=== PATIENT | male | born 1950 | race Two or more races ===

== ENCOUNTER 2016-06-05 12:37 | Inpatient (IN) | payer OTHER ==
[2016-06-05 13:56] VITALS: BMI 26.9
--- NOTE | 2016-06-05 16:11 | HP ---
COWS - Scale Resting Pulse: 2= [place] 101-120 Sweatin=Flushed/Facial Moisture Restless Observation: 3= Extraneous Movement Pupil Size: 2= Moderately Dilated Bone or Joint Aches: 2= Severe Diffuse Aches Runny Nose/ Eye Tearin= Runny Nose/Eyes GI Upset > 30mins: 3= Vomiting/Diarrhea Tremor Observation: 2= Slight Tremor Visible Yawning Observation: 2= >3x During Session Anxiety or Irritability: 2=Irritable/Anxious Goose Flesh Skin: 0=Smooth Skin COWS Score: 22 Admission ROS BHS - HPI Chief Complaint: i need help to stop using heroin Allergies/Adverse Reactions: Allergies Allergy/AdvReac Type Severity Reaction Status Date / Time No Known Drug Allergies Allergy Verified 06/05/16 16:00 History of Present Illness: this 66 years old male with heroin dependence,withdrawal symptom,last detox [facility] nicotine dependence hepatitis c weight loss no significant period of sobriety Exam Limitations: No Limitations - Ebola screening Have you been sick,other than usual withdrawal symptoms: No - Review of Systems Constitutional: Chills, Diaphoresis, Loss of Appetite, Malaise, Night Sweats, Changes in sleep, Weakness, Unintentional Wgt. Loss EENT: reports: Tearing, Nose Congestion Respiratory: reports: No Symptoms reported Cardiac: reports: Palpitations GI: reports: Diarrhea, Nausea, Vomiting, Abdominal cramping : reports: No Symptoms Reported Musculoskeletal: reports: Back Pain, Joint Pain, Muscle Pain, Joint Stiffness Integumentary: reports: Dryness Neuro: reports: Headache, Tremors Endocrine: reports: No Symptoms Reported Hematology: reports: No Symptoms Reported Psychiatric: reports: No Sypmtoms Reported, Judgement Intact, Mood/Affect Appropiate, Orientated x3 Patient History - Patient Medical History Hx Anemia: No Hx Asthma: No Hx Chronic Obstructive Pulmonary Disease (COPD): No Hx Cancer: No Hx Cardiac Disorders: No Hx Congestive Heart Failure: No Hx Hypertension: No Hx Hypercholesterolemia: No Hx Pacemaker: No HX Cerebrovascular Accident: No Hx Seizures: No Hx Dementia: No Hx Diabetes: No Hx Gastrointestinal Disorders: No Hx Liver Disease: No Hx Genitourinary Disorders: No Hx Sexually Transmitted Disorders: No Hx Renal Disease (ESRD): No Hx Human Immunodeficiency Virus (HIV): No Hx Hepatitis C: Yes (not treated yet,follow by pmd) Hx Depression: No Hx Suicide Attempt: No Hx Bipolar Disorder: No Hx Schizophrenia: No Other Medical History: no suicidal,no homicidal - Patient Surgical History Past Surgical History: No Hx Neurologic Surgery: No Hx Cataract Extraction: No Hx Cardiac Surgery: No Hx Lung Surgery: No Hx Breast Surgery: No Hx Breast Biopsy: No Hx Abdominal Surgery: No Hx Appendectomy: No Hx Cholecystectomy: No Hx Genitourinary Surgery: No Hx Section: No Hx Orthopedic Surgery: No Anesthesia Reaction: No - PPD History Previous Implant?: Yes Documented Results: Negative w/o proof Implanted On Prior [facility] Admission?: No Date: 01/16/15 PPD to be Administered?: Yes - Smoking Cessation Smoking history: Current every day smoker Have you smoked in the past 12 months: Yes Aproximately how many cigarettes per day: 10 Hx Chewing Tobacco Use: No Initiated information on smoking cessation: Yes 'Breaking Loose' booklet given: 06/05/16 - Substance & Tx. History Hx Alcohol Use: No Hx Substance Use: Yes Substance Use Type: Heroin Hx Substance Use Treatment: Yes ([facility] 05/28) - Substances Abused Heroin Route: Inhalation Frequency: Daily Amount used: 8 bags Age of first use: 20 Date of Last Use: 06/04/16 Family Disease History - Family Disease History Family Disease History: Heart Disease: Mother ( FROM CAD) Admission Physical Exam S - Vital Signs Vital Signs: Vital Signs - 24 hr 06/05/16 13:54 Temperature 98.2 F Pulse Rate 109 H Respiratory 18 Rate Blood Pressure 165/79 - Physical General Appearance: Yes: Moderate Distress, Tremorous, Irritable, Sweating, Anxious HEENTM: Yes: Normal ENT Inspection, Pharynx Normal, Nasal Congestion, Other ( hearing deminish right) Respiratory: Yes: Lungs Clear, Normal Breath Sounds, No Respiratory Distress Neck: Yes: Within Normal Limits, Supple, Trachea in good position Breast: Yes: Breast Exam Deferred Cardiology: Yes: Within Normal Limits, Regular Rhythm, Regular Rate, S1, S2 Abdominal: Yes: Within Normal Limits, Normal Bowel Sounds, Non Tender, Flat, Soft Genitourinary: Yes: Within Normal Limits Back: Yes: Within Normal Limits Musculoskeletal: Yes: full range of Motion, Back pain, Joint Stiffness, Muscle Pain Extremities: Yes: Within Normal Limits, Normal Range of Motion, Tremors Neurological: Yes: auditing manager II-XII NML intact, Fully Oriented, Alert, Motor Strength 5/5 Integumentary: Yes: Dry Lymphatic: Yes: Within Normal Limits - Diagnostic (1) Opioid dependence with withdrawal Current Visit: No Status: Acute (2) GERD (gastroesophageal reflux disease) Current Visit: No Status: Chronic Qualifiers: Esophagitis presence: without esophagitis Qualified Code(s): K21.9 - Gastro-esophageal reflux disease without esophagitis (3) Hepatitis C Current Visit: No Status: Chronic Qualifiers: Viral hepatitis chronicity: unspecified Hepatic coma status: without hepatic coma Qualified Code(s): B19.20 - Unspecified viral hepatitis C without hepatic coma (4) Nicotine dependence Current Visit: No Status: Chronic Qualifiers: Nicotine product type: cigarettes Substance use status: uncomplicated Qualified Code(s): F17.210 - Nicotine dependence, cigarettes, uncomplicated (5) Weight loss Current Visit: Yes Status: Acute Cleared for Admission BHS - Detox or Rehab S Level of Care: Medically Managed Detox Regimen/Protocol: Methadone BHS Breath Alcohol Content Breath Alcohol Content: 0 Urine Drug Screen - Results Drug Screen Negative: No Urine Drug Screen Results: OPI-Opiates
[2016-06-05] MEDS ORDERED: hydrOXYzine PAMOATE 25 MG CAPSULE (FP) PO PRN (16:17)
[2016-06-05] MEDS ORDERED: MENTHOL/PHENOL 1 EACH UD MM PRN (16:17)
[2016-06-05] MEDS ORDERED: MAGNESIUM CITRATE 300 ML BOTTLE PO PRN (16:17)
[2016-06-05] MEDS ORDERED: MAG HYDROX/AL HYDROX/SIMETH 30 ML UNIT-DOSE CUP PO PRN (16:17)
[2016-06-05] MEDS ORDERED: guaiFENesin/D-METHORPHAN HB 10 ML UNIT-DOSE CUPS PO PRN (16:17)
[2016-06-05] MEDS ORDERED: ACETAMINOPHEN 325 MG TABLET (FP) PO PRN (16:17)
[2016-06-05] MEDS ORDERED: IBUPROFEN 400 MG TABLET (FP) PO PRN (16:17)
[2016-06-05] MEDS ORDERED: MAGNESIUM HYDROX 2400MG/30ML ORAL SUSPENSION 30 ML CUP PO PRN (16:17)
[2016-06-05] MEDS ORDERED: P-EPHED 60MG/TRIPROLIDI 2.5MG TABLET PO PRN (16:17)
[2016-06-05] MEDS ORDERED: METHADONE HCL 10 MG TABLET (FOR DETOX USE ONLY) PO ONE ×2 (17:15→23:00)
[2016-06-05] MEDS: diazePAM 5 MG TABLET PO PRN (18:08)
[2016-06-05] MEDS: LOPERAMIDE HCL 2 MG CAPSULE PO PRN (19:10)
[2016-06-05 22:44] LABS: URINE APPEARANCE CLEAR; URINE BILIRUBIN NEGATIVE (NEGATIVE); URINE BLOOD NEGATIVE (NEGATIVE); URINE COLOR LTYELLOW; URINE GLUCOSE (UA) NEGATIVE (NEGATIVE); URINE KETONE NEGATIVE (NEGATIVE); URINE LEUK ESTERASE NEGATIVE (NEGATIVE); URINE NITRITE NEGATIVE (NEGATIVE); URINE PROTEIN NEGATIVE (NEGATIVE); URINE UROBILINOGEN NEGATIVE E.U./dl (0.2-1.0)
[2016-06-05] MEDS: THIAMINE HCL 100 MG TABLET (FP) PO SCH (22:58)
[2016-06-05] MEDS: diphenhydrAMINE HCL 50 MG CAPSULE PO PRN (22:58)
[2016-06-05] MEDS: cloNIDine HCL 0.1 MG TABLET PO SCH (22:58)
[2016-06-06] MEDS ORDERED: METHADONE HCL 10 MG TABLET (FOR DETOX USE ONLY) PO ONE (10:00)
[2016-06-06] MEDS: cloNIDine HCL 0.1 MG TABLET PO SCH ×2 (10:24→22:47)
[2016-06-06] MEDS: PRENATAL VITAMINS W/ FOLIC ACID TABLET (FP) PO SCH (10:24)
[2016-06-06] MEDS: diazePAM 5 MG TABLET PO PRN ×2 (10:24→17:35)
[2016-06-06] MEDS: NICOTINE 21 MG/24 HOURS TOPICAL PATCH TD SCH (10:24)
[2016-06-06] MEDS: LOPERAMIDE HCL 2 MG CAPSULE PO PRN (10:25)
[2016-06-06 10:30] LABS: MCH 27.7 pg (25.7-33.7); MCHC 32.5 g/dl (32.0-35.9); MEAN CELL VOLUME 85.1 fl (80-96); MEAN PLT VOLUME 8.2 fl (7.5-11.1); PLATELET COUNT 357 K/MM3 (134-434); WHITE BLOOD COUNT 13.4 K/mm3 (4.0-10.0)
[2016-06-06 10:57] LABS: ALBUMIN 4.1 g/dl (3.4-5.0); ALK PHOS 74 U/L (45-117); ANION GAP 11 (8-16); BILIRUBIN,TOTAL 0.5 mg/dL (0.2-1.0); CALCIUM 9.1 mg/dL (8.5-10.1); CO2 26 mmol/L (21-32); CREATININE 1.2 mg/dL (0.7-1.3); GLUCOSE,RANDOM 191 mg/dL (74-106); SGOT/AST 45 U/L (15-37); SGPT/ALT 55 U/L (12-78); TOT PROT 9.4 g/dl (6.4-8.2)
--- NOTE | 2016-06-06 11:13 | PN ---
BHS COWS - Scale Resting Pulse: 1= [place] 81-100 Sweatin=Flushed/Facial Moisture Restless Observation: 1= Difficult to Sit Still Pupil Size: 0= Normal to Room Light Bone or Joint Aches: 2= Severe Diffuse Aches Runny Nose/ Eye Tearin= Runny Nose/Eyes GI Upset > 30mins: 2= Nausea/Diarrhea Tremor Observation of Outstretched Hands: 2= Slight Tremor Visible Yawning Observation: 1= 1-2x During Session Anxiety or Irritability: 2=Irritable/Anxious Goose Flesh Skin: 0=Smooth Skin COWS Score: 15 BHS Progress Note (SOAP) Subjective: Anxiety,tremors,sweating,interrupted sleep,restless Objective: 06/06/16 11:12 Last Vital Signs Temp Pulse Resp BP Pulse Ox 96.8 F L 97 H 18 140/84 06/06/16 09:55 06/06/16 09:55 06/06/16 09:55 06/06/16 09:55 Laboratory Tests 06/05/16 06/06/16 06/06/16 21:13 06:20 06:20 WBC 13.4 H D RBC 5.73 H D Hgb 15.9 D Hct 48.8 D MCV 85.1 MCHC 32.5 RDW 16.0 H Plt Count 357 D MPV 8.2 D Sodium 139 Potassium 4.4 Chloride 102 Carbon Dioxide 26 Anion Gap 11 BUN 16 Creatinine 1.2 D Creat Clearance w eGFR > 60 Random Glucose 191 H D Calcium 9.1 Total Bilirubin 0.5 D AST 45 H D ALT 55 D Alkaline Phosphatase 74 D Total Protein 9.4 H D Albumin 4.1 D Urine Color Ltyellow Urine Appearance Clear Urine pH 8.0 D Ur Specific [place] 1.014 Urine Protein Negative Urine Glucose (UA) Negative Urine Ketones Negative Urine Blood Negative Urine Nitrite Negative Urine Bilirubin Negative Urine Urobilinogen Negative Ur Leukocyte Esterase Negative labs noted Assessment: 06/06/16 11:12 Withdrawal sx. Plan: Continue detox
[2016-06-06 13:59] LABS: HIV 1 & 2 AB NEGATIVE; HIV 1 AGp24 NEGATIVE
--- NOTE | 2016-06-06 18:31 | EKG ---
Test Reason : Blood Pressure : / mmHG Vent. Rate : 096 BPM Atrial Rate : 096 BPM P-R Int : 166 ms QRS Dur : 076 ms QT Int : 352 ms P-R-T Axes : 061 -10 058 degrees QTc Int : 444 ms NORMAL SINUS RHYTHM POSSIBLE LEFT ATRIAL ENLARGEMENT BORDERLINE ECG NO PREVIOUS ECGS AVAILABLE Confirmed by BHARTI CONTRERAS MD ([id number]) on 06/06/2016 6:30:26 PM Referred By: Rodney Lucas Confirmed By:BHARTI CONTRERAS MD
[2016-06-06] MEDS: THIAMINE HCL 100 MG TABLET (FP) PO SCH (22:47)
[2016-06-06] MEDS: diphenhydrAMINE HCL 50 MG CAPSULE PO PRN (22:48)
[2016-06-07] MEDS ORDERED: METHADONE HCL 5 MG TABLET (FOR DETOX USE ONLY) PO ONE (10:00)
[2016-06-07] MEDS: PRENATAL VITAMINS W/ FOLIC ACID TABLET (FP) PO SCH (10:14)
[2016-06-07] MEDS: CYCLOBENZAPRINE HCL 10 MG TABLET (FP) PO PRN ×2 (10:14→22:22)
[2016-06-07] MEDS: NICOTINE 21 MG/24 HOURS TOPICAL PATCH TD SCH (10:15)
[2016-06-07] MEDS: cloNIDine HCL 0.1 MG TABLET PO SCH ×2 (10:15→22:22)
[2016-06-07] MEDS: diazePAM 5 MG TABLET PO PRN ×2 (10:15→22:22)
--- NOTE | 2016-06-07 12:50 | PN ---
BHS COWS - Scale Resting Pulse: 1= [place] 81-100 Sweatin=Flushed/Facial Moisture Restless Observation: 1= Difficult to Sit Still Pupil Size: 0= Normal to Room Light Bone or Joint Aches: 2= Severe Diffuse Aches Runny Nose/ Eye Tearin= Runny Nose/Eyes GI Upset > 30mins: 2= Nausea/Diarrhea Tremor Observation of Outstretched Hands: 2= Slight Tremor Visible Yawning Observation: 1= 1-2x During Session Anxiety or Irritability: 2=Irritable/Anxious Goose Flesh Skin: 0=Smooth Skin COWS Score: 15 BHS Progress Note (SOAP) Subjective: Anxiety,tremors,sweating,interrupted sleep,restless. Objective: 06/07/16 12:48 Last Vital Signs Temp Pulse Resp BP Pulse Ox 99.1 F 97 H 18 128/77 06/07/16 09:43 06/07/16 09:43 06/07/16 09:43 06/07/16 09:43 Laboratory Tests 06/05/16 06/06/16 06/06/16 21:13 06:20 06:20 WBC 13.4 H D RBC 5.73 H D Hgb 15.9 D Hct 48.8 D MCV 85.1 MCHC 32.5 RDW 16.0 H Plt Count 357 D MPV 8.2 D Sodium Potassium Chloride Carbon Dioxide Anion Gap BUN Creatinine Creat Clearance w eGFR Random Glucose Calcium Total Bilirubin AST ALT Alkaline Phosphatase Total Protein Albumin Urine Color Ltyellow Urine Appearance Clear Urine pH 8.0 D Ur Specific [place] 1.014 Urine Protein Negative Urine Glucose (UA) Negative Urine Ketones Negative Urine Blood Negative Urine Nitrite Negative Urine Bilirubin Negative Urine Urobilinogen Negative Ur Leukocyte Esterase Negative RPR Titer HIV 1&2 Antibody Screen Negative HIV P24 Antigen Negative 06/06/16 06/06/16 06:20 06:20 WBC RBC Hgb Hct MCV MCHC RDW Plt Count MPV Sodium 139 Potassium 4.4 Chloride 102 Carbon Dioxide 26 Anion Gap 11 BUN 16 Creatinine 1.2 D Creat Clearance w eGFR > 60 Random Glucose 191 H D Calcium 9.1 Total Bilirubin 0.5 D AST 45 H D ALT 55 D Alkaline Phosphatase 74 D Total Protein 9.4 H D Albumin 4.1 D Urine Color Urine Appearance Urine pH Ur Specific [place] Urine Protein Urine Glucose (UA) Urine Ketones Urine Blood Urine Nitrite Urine Bilirubin Urine Urobilinogen Ur Leukocyte Esterase RPR Titer Nonreactive HIV 1&2 Antibody Screen HIV P24 Antigen labs noted,WBC 13.4 noted Assessment: 06/07/16 12:50 Withdrawal sx. Plan: Continue detox
[2016-06-07] MEDS: THIAMINE HCL 100 MG TABLET (FP) PO SCH (22:21)
[2016-06-08] MEDS: diazePAM 5 MG TABLET PO PRN (05:26)
[2016-06-08] MEDS: CYCLOBENZAPRINE HCL 10 MG TABLET (FP) PO PRN (05:26)
[2016-06-08] MEDS ORDERED: METHADONE HCL 5 MG TABLET (FOR DETOX USE ONLY) PO ONE (10:00)
[2016-06-08] MEDS: NICOTINE 21 MG/24 HOURS TOPICAL PATCH TD SCH (10:31)
[2016-06-08] MEDS: PRENATAL VITAMINS W/ FOLIC ACID TABLET (FP) PO SCH (10:31)
[2016-06-08] MEDS: cloNIDine HCL 0.1 MG TABLET PO SCH ×2 (10:31→22:40)
--- NOTE | 2016-06-08 12:22 | PN ---
BHS Progress Note (SOAP) Subjective: Sweating,interrupted sleep,restless Objective: 06/08/16 12:21 Vital Signs - 8 hr 06/08/16 06/08/16 06:24 10:42 Temperature 96.6 F L 97.2 F L Pulse Rate 72 100 H Respiratory 18 20 Rate Blood Pressure 127/74 127/81 Laboratory Last Values WBC 13.4 K/mm3 (4.0-10.0) H D 06/06/16 06:20 RBC 5.73 M/mm3 (4.00-5.60) H D 06/06/16 06:20 Hgb 15.9 GM/dL (11.7-16.9) D 06/06/16 06:20 Hct 48.8 % (35.4-49) D 06/06/16 06:20 MCV 85.1 fl (80-96) 06/06/16 06:20 MCHC 32.5 g/dl (32.0-35.9) 06/06/16 06:20 RDW 16.0 % (11.9-15.9) H 06/06/16 06:20 Plt Count 357 K/MM3 (134-434) D 06/06/16 06:20 MPV 8.2 fl (7.5-11.1) D 06/06/16 06:20 Sodium 139 mmol/L (136-145) 06/06/16 06:20 Potassium 4.4 mmol/L (3.5-5.1) 06/06/16 06:20 Chloride 102 mmol/L (98-107) 06/06/16 06:20 Carbon Dioxide 26 mmol/L (21-32) 06/06/16 06:20 Anion Gap 11 (8-16) 06/06/16 06:20 BUN 16 mg/dL (7-18) 06/06/16 06:20 Creatinine 1.2 mg/dL (0.7-1.3) D 06/06/16 06:20 Creat Clearance w eGFR > 60 (>60) 06/06/16 06:20 Random Glucose 191 mg/dL (74-106) H D 06/06/16 06:20 Calcium 9.1 mg/dL (8.5-10.1) 06/06/16 06:20 Total Bilirubin 0.5 mg/dL (0.2-1.0) D 06/06/16 06:20 AST 45 U/L (15-37) H D 06/06/16 06:20 ALT 55 U/L (12-78) D 06/06/16 06:20 Alkaline Phosphatase 74 U/L (45-117) D 06/06/16 06:20 Total Protein 9.4 g/dl (6.4-8.2) H D 06/06/16 06:20 Albumin 4.1 g/dl (3.4-5.0) D 06/06/16 06:20 Urine Color Ltyellow 06/05/16 21:13 Urine Appearance Clear 06/05/16 21:13 Urine pH 8.0 (5.0-8.0) D 06/05/16 21:13 Ur Specific [place] 1.014 (1.001-1.035) 06/05/16 21:13 Urine Protein Negative (NEGATIVE) 06/05/16 21:13 Urine Glucose (UA) Negative (NEGATIVE) 06/05/16 21:13 Urine Ketones Negative (NEGATIVE) 06/05/16 21:13 Urine Blood Negative (NEGATIVE) 06/05/16 21:13 Urine Nitrite Negative (NEGATIVE) 06/05/16 21:13 Urine Bilirubin Negative (NEGATIVE) 06/05/16 21:13 Urine Urobilinogen Negative E.U./dl (0.2-1.0) 06/05/16 21:13 Ur Leukocyte Esterase Negative (NEGATIVE) 06/05/16 21:13 RPR Titer Nonreactive (NONREACTIVE) 06/06/16 06:20 HIV 1&2 Antibody Screen Negative 06/06/16 06:20 HIV P24 Antigen Negative 06/06/16 06:20 labs noted Assessment: 06/08/16 12:21 Withdrawal sx. Plan: Continue detox
[2016-06-08] MEDS: LOPERAMIDE HCL 2 MG CAPSULE PO PRN (20:29)
[2016-06-08] MEDS: THIAMINE HCL 100 MG TABLET (FP) PO SCH (22:40)
[2016-06-08] MEDS: diphenhydrAMINE HCL 50 MG CAPSULE PO PRN (22:41)
[2016-06-09] MEDS: CYCLOBENZAPRINE HCL 10 MG TABLET (FP) PO PRN ×2 (05:30→22:43)
[2016-06-09] MEDS ORDERED: METHADONE HCL 10 MG TABLET (FOR DETOX USE ONLY) PO ONE (10:00)
[2016-06-09] MEDS: NICOTINE 21 MG/24 HOURS TOPICAL PATCH TD SCH (10:34)
[2016-06-09] MEDS: cloNIDine HCL 0.1 MG TABLET PO SCH ×2 (10:34→22:43)
[2016-06-09] MEDS: PRENATAL VITAMINS W/ FOLIC ACID TABLET (FP) PO SCH (10:34)
--- NOTE | 2016-06-09 11:07 | PN ---
S Progress Note (SOAP) Subjective: ANXIETY,TREMORS,FATIGUE. Objective: 06/09/16 11:06 Vital Signs Temperature 96 F L 06/09/16 09:32 Pulse Rate 111 H 06/09/16 09:32 Respiratory Rate 20 06/09/16 09:32 Blood Pressure 137/85 06/09/16 09:32 O2 Sat by Pulse Oximetry (%) Laboratory Last Values WBC 13.4 K/mm3 (4.0-10.0) H D 06/06/16 06:20 RBC 5.73 M/mm3 (4.00-5.60) H D 06/06/16 06:20 Hgb 15.9 GM/dL (11.7-16.9) D 06/06/16 06:20 Hct 48.8 % (35.4-49) D 06/06/16 06:20 MCV 85.1 fl (80-96) 06/06/16 06:20 MCHC 32.5 g/dl (32.0-35.9) 06/06/16 06:20 RDW 16.0 % (11.9-15.9) H 06/06/16 06:20 Plt Count 357 K/MM3 (134-434) D 06/06/16 06:20 MPV 8.2 fl (7.5-11.1) D 06/06/16 06:20 Sodium 139 mmol/L (136-145) 06/06/16 06:20 Potassium 4.4 mmol/L (3.5-5.1) 06/06/16 06:20 Chloride 102 mmol/L (98-107) 06/06/16 06:20 Carbon Dioxide 26 mmol/L (21-32) 06/06/16 06:20 Anion Gap 11 (8-16) 06/06/16 06:20 BUN 16 mg/dL (7-18) 06/06/16 06:20 Creatinine 1.2 mg/dL (0.7-1.3) D 06/06/16 06:20 Creat Clearance w eGFR > 60 (>60) 06/06/16 06:20 Random Glucose 191 mg/dL (74-106) H D 06/06/16 06:20 Calcium 9.1 mg/dL (8.5-10.1) 06/06/16 06:20 Total Bilirubin 0.5 mg/dL (0.2-1.0) D 06/06/16 06:20 AST 45 U/L (15-37) H D 06/06/16 06:20 ALT 55 U/L (12-78) D 06/06/16 06:20 Alkaline Phosphatase 74 U/L (45-117) D 06/06/16 06:20 Total Protein 9.4 g/dl (6.4-8.2) H D 06/06/16 06:20 Albumin 4.1 g/dl (3.4-5.0) D 06/06/16 06:20 Urine Color Ltyellow 06/05/16 21:13 Urine Appearance Clear 06/05/16 21:13 Urine pH 8.0 (5.0-8.0) D 06/05/16 21:13 Ur Specific [place] 1.014 (1.001-1.035) 06/05/16 21:13 Urine Protein Negative (NEGATIVE) 06/05/16 21:13 Urine Glucose (UA) Negative (NEGATIVE) 06/05/16 21:13 Urine Ketones Negative (NEGATIVE) 06/05/16 21:13 Urine Blood Negative (NEGATIVE) 06/05/16 21:13 Urine Nitrite Negative (NEGATIVE) 06/05/16 21:13 Urine Bilirubin Negative (NEGATIVE) 06/05/16 21:13 Urine Urobilinogen Negative E.U./dl (0.2-1.0) 06/05/16 21:13 Ur Leukocyte Esterase Negative (NEGATIVE) 06/05/16 21:13 RPR Titer Nonreactive (NONREACTIVE) 06/06/16 06:20 HIV 1&2 Antibody Screen Negative 06/06/16 06:20 HIV P24 Antigen Negative 06/06/16 06:20 Assessment: 06/09/16 11:06 WITHDRAWAL SX Plan: CONTINUE DETOX
[2016-06-09] MEDS: THIAMINE HCL 100 MG TABLET (FP) PO SCH (22:43)
[2016-06-10] MEDS: CYCLOBENZAPRINE HCL 10 MG TABLET (FP) PO PRN (05:57)
[2016-06-10] MEDS ORDERED: METHADONE HCL 5 MG TABLET (FOR DETOX USE ONLY) PO ONE (06:00)
[2016-06-10 09:03] VITALS: BP 127/76; PULSE 102; TEMP 96.8
--- NOTE | 2016-06-10 12:10 | DS ---
[facility] Detox Discharge Summary Admission Date: 06/05/16 Discharge Date: 06/10/16 - History Present History: Opioid Dependence Additional Comments: DETOX COMPLETED.ALERT O X 3. NAD. Pertinent Past History: HEP C GERD WEIGHT LOSS - Physical Exam Results Vital Signs: Vital Signs Temperature 96.8 F L 06/10/16 09:02 Pulse Rate 102 H 06/10/16 09:02 Respiratory Rate 20 06/10/16 09:02 Blood Pressure 127/76 06/10/16 09:02 O2 Sat by Pulse Oximetry (%) Pertinent Admission Physical Exam Findings: WITHDRAWAL SX Laboratory Last Values WBC 13.4 K/mm3 (4.0-10.0) H D 06/06/16 06:20 RBC 5.73 M/mm3 (4.00-5.60) H D 06/06/16 06:20 Hgb 15.9 GM/dL (11.7-16.9) D 06/06/16 06:20 Hct 48.8 % (35.4-49) D 06/06/16 06:20 MCV 85.1 fl (80-96) 06/06/16 06:20 MCHC 32.5 g/dl (32.0-35.9) 06/06/16 06:20 RDW 16.0 % (11.9-15.9) H 06/06/16 06:20 Plt Count 357 K/MM3 (134-434) D 06/06/16 06:20 MPV 8.2 fl (7.5-11.1) D 06/06/16 06:20 Sodium 139 mmol/L (136-145) 06/06/16 06:20 Potassium 4.4 mmol/L (3.5-5.1) 06/06/16 06:20 Chloride 102 mmol/L (98-107) 06/06/16 06:20 Carbon Dioxide 26 mmol/L (21-32) 06/06/16 06:20 Anion Gap 11 (8-16) 06/06/16 06:20 BUN 16 mg/dL (7-18) 06/06/16 06:20 Creatinine 1.2 mg/dL (0.7-1.3) D 06/06/16 06:20 Creat Clearance w eGFR > 60 (>60) 06/06/16 06:20 Random Glucose 191 mg/dL (74-106) H D 06/06/16 06:20 Calcium 9.1 mg/dL (8.5-10.1) 06/06/16 06:20 Total Bilirubin 0.5 mg/dL (0.2-1.0) D 06/06/16 06:20 AST 45 U/L (15-37) H D 06/06/16 06:20 ALT 55 U/L (12-78) D 06/06/16 06:20 Alkaline Phosphatase 74 U/L (45-117) D 06/06/16 06:20 Total Protein 9.4 g/dl (6.4-8.2) H D 06/06/16 06:20 Albumin 4.1 g/dl (3.4-5.0) D 06/06/16 06:20 Urine Color Ltyellow 06/05/16 21:13 Urine Appearance Clear 06/05/16 21:13 Urine pH 8.0 (5.0-8.0) D 06/05/16 21:13 Ur Specific [place] 1.014 (1.001-1.035) 06/05/16 21:13 Urine Protein Negative (NEGATIVE) 06/05/16 21:13 Urine Glucose (UA) Negative (NEGATIVE) 06/05/16 21:13 Urine Ketones Negative (NEGATIVE) 06/05/16 21:13 Urine Blood Negative (NEGATIVE) 06/05/16 21:13 Urine Nitrite Negative (NEGATIVE) 06/05/16 21:13 Urine Bilirubin Negative (NEGATIVE) 06/05/16 21:13 Urine Urobilinogen Negative E.U./dl (0.2-1.0) 06/05/16 21:13 Ur Leukocyte Esterase Negative (NEGATIVE) 06/05/16 21:13 RPR Titer Nonreactive (NONREACTIVE) 06/06/16 06:20 HIV 1&2 Antibody Screen Negative 06/06/16 06:20 HIV P24 Antigen Negative 06/06/16 06:20 - Treatment Hospital Course: Detox Protocol Followed, Detoxed Safely, Responded well, Discharged Condition Good, Rehab Referral Accepted Patient has Accepted a Rehab Referral to: [facility] - Medication Discharge Medications: Ambulatory Orders NK [No Known Home Medication] 06/03/15 - Diagnosis (1) Opioid dependence with withdrawal Status: Acute (2) Weight loss Status: Acute (3) GERD (gastroesophageal reflux disease) Status: Chronic Qualifiers: Esophagitis presence: without esophagitis Qualified Code(s): K21.9 - Gastro-esophageal reflux disease without esophagitis (4) Hepatitis C Status: Chronic Qualifiers: Viral hepatitis chronicity: unspecified Hepatic coma status: without hepatic coma Qualified Code(s): B19.20 - Unspecified viral hepatitis C without hepatic coma (5) Nicotine dependence Status: Chronic Qualifiers: Nicotine product type: cigarettes Substance use status: uncomplicated Qualified Code(s): F17.210 - Nicotine dependence, cigarettes, uncomplicated - AMA Did Patient Leave Against Medical Advice: No
== END 2016-06-10 10:20 | disposition home or self-care (01) | DRG 744 ==
LOC: YASAS 12:37 → Y3N 16:48
PROVIDERS: ADMIT Internal Medicine; ATTEND Internal Medicine
PROC: HZ2ZZZZ Detoxification Services for Substance Abuse Treatment (ICD-10-PCS; principal; 2016-06-05)
DX: F11.23 Opioid dependence with withdrawal (principal); B19.20 Unspecified viral hepatitis C without hepatic coma; F17.210 Nicotine dependence, cigarettes, uncomplicated; K21.9 Gastro-esophageal reflux disease without esophagitis; Z87.898 Personal history of other specified conditions
CPT/HCPCS: 36415; 80053; 81003; 85027; 86593; 87389; 93005; 93010

== ENCOUNTER 2016-11-21 14:25 | Inpatient (IN) | payer OTHER ==
[2016-11-21 15:19] VITALS: BMI 26.6
--- NOTE | 2016-11-21 17:54 | HP ---
COWS - Scale Resting Pulse: 0= [place] 80 or Below Sweatin=Flushed/Facial Moisture Restless Observation: 3= Extraneous Movement Pupil Size: 1= Pupils >than Normal Bone or Joint Aches: 2= Severe Diffuse Aches Runny Nose/ Eye Tearin= Runny Nose/Eyes GI Upset > 30mins: 2= Nausea/Diarrhea Tremor Observation: 2= Slight Tremor Visible Yawning Observation: 1= 1-2x During Session Anxiety or Irritability: 2=Irritable/Anxious Goose Flesh Skin: 3=Piloerection COWS Score: 20 Admission ROS S - HPI Chief Complaint: I'm here to detox off of heroin Allergies/Adverse Reactions: Allergies Allergy/AdvReac Type Severity Reaction Status Date / Time No Known Drug Allergies Allergy Verified 11/21/16 17:20 History of Present Illness: 65 y/o male with long standing use of heroin presents for detox. He was last treated at [facility] in May of this year. Exam Limitations: No Limitations - Ebola screening Have you traveled outside of the country in the last 21 days: No Have you traveled to any of the following countries: [place] Have you had contact with anyone from an Ebola affected area: No Have you been sick,other than usual withdrawal symptoms: No - Review of Systems Constitutional: Loss of Appetite, Changes in sleep, Unintentional Wgt. Loss EENT: reports: No Symptoms Reported Respiratory: reports: Cough Cardiac: reports: Lightheadedness GI: reports: Diarrhea, Nausea, Poor Appetite, Vomiting, Abdominal cramping : reports: No Symptoms Reported Musculoskeletal: reports: Muscle Pain, Muscle Weakness Integumentary: reports: No Symptoms Reported Neuro: reports: Tremors Endocrine: reports: No Symptoms Reported Hematology: reports: No Symptoms Reported Psychiatric: reports: Anxious Other Systems: Reviewed and Negative Patient History - Patient Medical History Hx Anemia: No Hx Asthma: No Hx Chronic Obstructive Pulmonary Disease (COPD): No Hx Cancer: No Hx Cardiac Disorders: No Hx Congestive Heart Failure: No Hx Hypertension: No Hx Hypercholesterolemia: No Hx Pacemaker: No HX Cerebrovascular Accident: No Hx Seizures: No Hx Dementia: No Hx Diabetes: No Hx Gastrointestinal Disorders: No Hx Liver Disease: No Hx Genitourinary Disorders: No Hx Sexually Transmitted Disorders: No Hx Renal Disease (ESRD): No Hx Human Immunodeficiency Virus (HIV): No Hx Hepatitis C: Yes Hx Depression: No Hx Suicide Attempt: No Hx Bipolar Disorder: No Hx Schizophrenia: No - Patient Surgical History Past Surgical History: No Hx Neurologic Surgery: No Hx Cataract Extraction: No Hx Cardiac Surgery: No Hx Lung Surgery: No Hx Breast Surgery: No Hx Breast Biopsy: No Hx Abdominal Surgery: No Hx Appendectomy: No Hx Cholecystectomy: No Hx Genitourinary Surgery: No Hx Section: No Hx Orthopedic Surgery: No Anesthesia Reaction: No - PPD History Previous Implant?: Yes Documented Results: Negative w/proof Implanted On Prior R Admission?: Yes Date: 06/07/16 PPD to be Administered?: No - Smoking Cessation Smoking history: Current every day smoker Have you smoked in the past 12 months: Yes Aproximately how many cigarettes per day: 20 Hx Chewing Tobacco Use: No Initiated information on smoking cessation: Yes 'Breaking Loose' booklet given: 11/21/16 - Substance & Tx. History Hx Alcohol Use: No Hx Substance Use: Yes Substance Use Type: Opiates Hx Substance Use Treatment: Yes - Substances Abused Heroin Route: Inhalation Frequency: Daily Amount used: 10 BAGS Age of first use: 35 Date of Last Use: 11/21/16 Family Disease History - Family Disease History Family Disease History: Heart Disease: Mother ( FROM CAD) Admission Physical Exam BHS - Vital Signs Vital Signs: Vital Signs - 24 hr 11/21/16 15:18 Temperature 96.4 F L Pulse Rate 78 Respiratory 20 Rate Blood Pressure 164/83 - Physical General Appearance: Yes: No Apparent Distress, Appropriately Dressed HEENTM: Yes: EOMI, Hearing grossly Normal, Normocephalic, Normal Voice Respiratory: Yes: Chest Non-Tender, Lungs Clear, No Respiratory Distress, No Accessory Muscle Use Neck: Yes: No masses,lesions,Nodules, Supple Breast: Yes: Breast Exam Deferred Cardiology: Yes: Regular Rhythm, Regular Rate, S1, S2 Abdominal: Yes: Normal Bowel Sounds Genitourinary: Yes: Within Normal Limits Musculoskeletal: Yes: Muscle Pain, Muscle weakness Extremities: Yes: Normal Capillary Refill, Normal Inspection, Non-Tender Neurological: Yes: clinical quality analyst II-XII NML intact, Fully Oriented, Alert, Normal Mood/ Affect Integumentary: Yes: Normal Color Lymphatic: Yes: Within Normal Limits - Diagnostic (1) Opioid dependence with withdrawal Current Visit: Yes Status: Acute (2) Hepatitis C Current Visit: Yes Status: Chronic Qualifiers: Viral hepatitis chronicity: chronic Hepatic coma status: without hepatic coma Qualified Code(s): B18.2 - Chronic viral hepatitis C (3) Nicotine dependence Current Visit: Yes Status: Acute Qualifiers: Nicotine product type: cigarettes Substance use status: uncomplicated Qualified Code(s): F17.210 - Nicotine dependence, cigarettes, uncomplicated Cleared for Admission BHS - Detox or Rehab [facility] Level of Care: Medically Managed Detox Regimen/Protocol: Methadone S Breath Alcohol Content Breath Alcohol Content: 0 Urine Drug Screen - Results Drug Screen Negative: No Urine Drug Screen Results: OPI-Opiates, MTD-Methadone
[2016-11-21] MEDS ORDERED: ACETAMINOPHEN 325 MG TABLET (FP) PO PRN (18:00)
[2016-11-21] MEDS ORDERED: MAGNESIUM HYDROX 2400MG/30ML ORAL SUSPENSION 30 ML CUP PO PRN (18:00)
[2016-11-21] MEDS ORDERED: P-EPHED 60MG/TRIPROLIDI 2.5MG TABLET PO PRN (18:00)
[2016-11-21] MEDS ORDERED: guaiFENesin/D-METHORPHAN HB 10 ML UNIT-DOSE CUPS PO PRN (18:00)
[2016-11-21] MEDS ORDERED: NICOTINE POLACRILEX 2 MG GUM BC PRN (18:00)
[2016-11-21] MEDS ORDERED: IBUPROFEN 400 MG TABLET (FP) PO PRN (18:00)
[2016-11-21] MEDS ORDERED: MAGNESIUM CITRATE 300 ML BOTTLE PO PRN (18:00)
[2016-11-21] MEDS ORDERED: MENTHOL/PHENOL 1 EACH UD MM PRN (18:00)
[2016-11-21] MEDS ORDERED: METHADONE HCL 10 MG TABLET (FOR DETOX USE ONLY) PO ONE ×2 (18:00→23:00)
[2016-11-21] MEDS ORDERED: hydrOXYzine PAMOATE 50 MG CAPSULE (FP) PO PRN (18:00)
[2016-11-21] MEDS: diazePAM 5 MG TABLET PO PRN (19:52)
[2016-11-21] MEDS: NICOTINE 14 MG/24 HOURS TOPICAL PATCH TD SCH (19:54)
[2016-11-21] MEDS: THIAMINE HCL 100 MG TABLET (FP) PO SCH (23:07)
[2016-11-21] MEDS: diphenhydrAMINE HCL 50 MG CAPSULE PO PRN (23:07)
[2016-11-22 00:24] LABS: URINE APPEARANCE SLCLOUDY; URINE BILIRUBIN NEGATIVE (NEGATIVE); URINE BLOOD 1+ (NEGATIVE); URINE GLUCOSE (UA) NEGATIVE (NEGATIVE); URINE KETONE TRACE (NEGATIVE); URINE LEUK ESTERASE NEGATIVE (NEGATIVE); URINE NITRITE NEGATIVE (NEGATIVE); URINE UROBILINOGEN NEGATIVE mg/dL (0.2-1.0)
[2016-11-22 00:31] LABS: URINE PROTEIN 2+ (NEGATIVE)
[2016-11-22 00:32] LABS: URINE COLOR YELLOW
[2016-11-22 00:38] LABS: URINE MUCUS MANY; URINE RBC 9 /hpf (0-3); URINE WBC 1 /hpf (3-5)
[2016-11-22] MEDS: LOPERAMIDE HCL 2 MG CAPSULE PO PRN ×2 (05:29→12:29)
[2016-11-22] MEDS: diazePAM 5 MG TABLET PO PRN ×4 (05:29→22:15)
[2016-11-22 09:54] LABS: MCH 28.2 pg (25.7-33.7); MCHC 32.8 g/dl (32.0-35.9); MEAN CELL VOLUME 85.9 fl (80-96); MEAN PLT VOLUME 8.5 fl (7.5-11.1); PLATELET COUNT 235 K/MM3 (134-434); RDW 14.9 % (11.9-15.9); WHITE BLOOD COUNT 11.1 K/mm3 (4.0-10.0)
--- NOTE | 2016-11-22 09:54 | EKG ---
Test Reason : Blood Pressure : / mmHG Vent. Rate : 064 BPM Atrial Rate : 064 BPM P-R Int : 170 ms QRS Dur : 084 ms QT Int : 430 ms P-R-T Axes : 058 -11 049 degrees QTc Int : 443 ms NORMAL SINUS RHYTHM NORMAL ECG Confirmed by MD EN, HAIDER ([id number]) on 11/22/2016 9:53:59 AM Referred By: Confirmed By:HAIDER GATICA MD
[2016-11-22] MEDS ORDERED: METHADONE HCL 10 MG TABLET (FOR DETOX USE ONLY) PO ONE (10:00)
[2016-11-22 10:21] LABS: ALK PHOS 57 U/L (45-117); ANION GAP 12 (8-16); BILIRUBIN,TOTAL 0.6 mg/dL (0.2-1.0); CALCIUM 8.6 mg/dL (8.5-10.1); CO2 24 mmol/L (21-32); CREATININE 1.1 mg/dL (0.7-1.3); GLUCOSE,RANDOM 153 mg/dL (74-106); SGPT/ALT 48 U/L (12-78); TOT PROT 9.2 g/dl (6.4-8.2)
[2016-11-22 10:22] LABS: SGOT/AST 41 U/L (15-37)
[2016-11-22] MEDS: PRENATAL VITAMINS W/ FOLIC ACID TABLET (FP) PO SCH (10:35)
[2016-11-22] MEDS: NICOTINE 14 MG/24 HOURS TOPICAL PATCH TD SCH (10:35)
--- NOTE | 2016-11-22 15:51 | PN ---
BHS COWS - Scale Resting Pulse: 1= [place] 81-100 Sweatin= Chills/Flushing Restless Observation: 3= Extraneous Movement Pupil Size: 0= Normal to Room Light Bone or Joint Aches: 2= Severe Diffuse Aches Runny Nose/ Eye Tearin= Runny Nose/Eyes GI Upset > 30mins: 3= Vomiting/Diarrhea Tremor Observation of Outstretched Hands: 2= Slight Tremor Visible Yawning Observation: 1= 1-2x During Session Anxiety or Irritability: 2=Irritable/Anxious Goose Flesh Skin: 0=Smooth Skin COWS Score: 17 BHS Progress Note (SOAP) Subjective: Chills, diarrhea, interrupted sleep, nausea, sweating Objective: 11/22/16 15:51 Last Vital Signs Temp Pulse Resp BP Pulse Ox 97.5 F L 97 H 20 156/91 11/22/16 13:15 11/22/16 13:15 11/22/16 13:15 11/22/16 13:15 Laboratory Tests 11/21/16 11/22/16 11/22/16 21:21 07:50 07:50 WBC 11.1 H RBC 5.36 Hgb 15.1 Hct 46.1 MCV 85.9 MCH 28.2 MCHC 32.8 RDW 14.9 Plt Count 235 D MPV 8.5 Sodium 139 Potassium 3.4 L D Chloride 103 Carbon Dioxide 24 Anion Gap 12 BUN 21 H D Creatinine 1.1 Creat Clearance w eGFR > 60 Random Glucose 153 H Calcium 8.6 Total Bilirubin 0.6 AST 41 H ALT 48 Alkaline Phosphatase 57 D Total Protein 9.2 H Albumin 4.0 Urine Color Yellow Urine Appearance Slcloudy Urine pH 5.0 D Ur Specific [place] 1.025 Urine Protein 2+ H Urine Glucose (UA) Negative Urine Ketones Trace H Urine Blood 1+ H Urine Nitrite Negative Urine Bilirubin Negative Urine Urobilinogen Negative Ur Leukocyte Esterase Negative Urine RBC 9 Urine WBC 1 Ur Epithelial Cells Rare Urine Mucus Many RPR Titer 11/22/16 07:50 WBC RBC Hgb Hct MCV MCH MCHC RDW Plt Count MPV Sodium Potassium Chloride Carbon Dioxide Anion Gap BUN Creatinine Creat Clearance w eGFR Random Glucose Calcium Total Bilirubin AST ALT Alkaline Phosphatase Total Protein Albumin Urine Color Urine Appearance Urine pH Ur Specific [place] Urine Protein Urine Glucose (UA) Urine Ketones Urine Blood Urine Nitrite Urine Bilirubin Urine Urobilinogen Ur Leukocyte Esterase Urine RBC Urine WBC Ur Epithelial Cells Urine Mucus RPR Titer Nonreactive Labs noted: WBC 11.1, serum glucose 153 ,K 3.4, bun 21; UA: abnormal Assessment: 11/22/16 15:53 Withdrawal symptoms Noted with leukocytosis, hyperglycemia, hypokalemia, azotemia and abnormal UA Plan: Continue detox Leukocytosis: asymptomatic for infection, repeat cbc Hyperglycemia: repeat bmp, fingerstick glucose ac meal Hypokalemia: K Dur 40 meq PO x 1 dose, repeat K level Azotemia: encouraged to drink lots of water, repeat BUN Abnormal UA: encouraged to drink lots of water, repeat UA
[2016-11-22] MEDS ORDERED: POTASSIUM CHLORIDE TABS 20 MEQ TABLET.ER (FP) PO ONE (16:02)
[2016-11-22] MEDS ORDERED: INSULIN (NOVOLOG) ASPART 100 UNITS/ML 10ML VIAL ONE (16:53)
[2016-11-22] MEDS: INSULIN SLIDING SCALE (NOVOLOG) 1 VIAL SQ SCH (17:32)
[2016-11-22] MEDS: MAG HYDROX/AL HYDROX/SIMETH 30 ML UNIT-DOSE CUP PO PRN (20:28)
[2016-11-22] MEDS: THIAMINE HCL 100 MG TABLET (FP) PO SCH (22:15)
[2016-11-22] MEDS: diphenhydrAMINE HCL 50 MG CAPSULE PO PRN (22:16)
[2016-11-23] MEDS: diazePAM 5 MG TABLET PO PRN ×3 (04:45→22:03)
[2016-11-23] MEDS: INSULIN SLIDING SCALE (NOVOLOG) 1 VIAL SQ SCH ×3 (07:24→16:23)
[2016-11-23] MEDS ORDERED: METHADONE HCL 5 MG TABLET (FOR DETOX USE ONLY) PO ONE (10:00)
[2016-11-23 10:16] LABS: BASOPHIL 0.7 % (0-2.0); EOSINOPHIL 1.6 % (0-4.5); MCH 28.5 pg (25.7-33.7); MCHC 33.2 g/dl (32.0-35.9); MEAN CELL VOLUME 85.8 fl (80-96); NEUTROPHILS 56.2 % (42.8-82.8); PLATELET COUNT 227 K/MM3 (134-434); RDW 14.7 % (11.9-15.9); WHITE BLOOD COUNT 9.6 K/mm3 (4.0-10.0)
[2016-11-23 10:20] LABS: ANION GAP 11 (8-16); CALCIUM 8.2 mg/dL (8.5-10.1); CO2 26 mmol/L (21-32); GLUCOSE,RANDOM 140 mg/dL (74-106)
[2016-11-23] MEDS: PRENATAL VITAMINS W/ FOLIC ACID TABLET (FP) PO SCH (10:26)
[2016-11-23] MEDS: NICOTINE 14 MG/24 HOURS TOPICAL PATCH TD SCH (10:26)
--- NOTE | 2016-11-23 10:58 | PN ---
BHS COWS - Scale Resting Pulse: 1= [place] 81-100 Sweatin= Chills/Flushing Restless Observation: 1= Difficult to Sit Still Pupil Size: 1= Pupils >than Normal Bone or Joint Aches: 1= Mild Discomfort Runny Nose/ Eye Tearin= Nasal Congestion GI Upset > 30mins: 2= Nausea/Diarrhea Tremor Observation of Outstretched Hands: 1= Tremor [place], Not Seen Yawning Observation: 1= 1-2x During Session Anxiety or Irritability: 2=Irritable/Anxious Goose Flesh Skin: 3=Piloerection COWS Score: 15 BHS Progress Note (SOAP) Subjective: nasua, sweats, interrupted sleep, anxiety, tremors Objective: 11/23/16 10:57 Vital Signs - 8 hr 11/23/16 11/23/16 11/23/16 03:38 06:26 09:15 Temperature 98.6 F 99.4 F Pulse Rate 86 103 H Respiratory 18 16 20 Rate Blood Pressure 135/85 135/80 Laboratory Tests 11/21/16 11/22/16 11/22/16 21:21 07:50 07:50 WBC 11.1 H RBC 5.36 Hgb 15.1 Hct 46.1 MCV 85.9 MCH 28.2 MCHC 32.8 RDW 14.9 Plt Count 235 D MPV 8.5 Neutrophils % Lymphocytes % Monocytes % Eosinophils % Basophils % Sodium 139 Potassium 3.4 L D Chloride 103 Carbon Dioxide 24 Anion Gap 12 BUN 21 H D Creatinine 1.1 Creat Clearance w eGFR > 60 POC Glucometer Random Glucose 153 H Calcium 8.6 Total Bilirubin 0.6 AST 41 H ALT 48 Alkaline Phosphatase 57 D Total Protein 9.2 H Albumin 4.0 Urine Color Yellow Urine Appearance Slcloudy Urine pH 5.0 D Ur Specific [place] 1.025 Urine Protein 2+ H Urine Glucose (UA) Negative Urine Ketones Trace H Urine Blood 1+ H Urine Nitrite Negative Urine Bilirubin Negative Urine Urobilinogen Negative Ur Leukocyte Esterase Negative Urine RBC 9 Urine WBC 1 Ur Epithelial Cells Rare Urine Mucus Many RPR Titer 11/22/16 11/22/16 11/23/16 07:50 16:34 04:43 WBC RBC Hgb Hct MCV MCH MCHC RDW Plt Count MPV Neutrophils % Lymphocytes % Monocytes % Eosinophils % Basophils % Sodium Potassium Chloride Carbon Dioxide Anion Gap BUN Creatinine Creat Clearance w eGFR POC Glucometer 227 113 Random Glucose Calcium Total Bilirubin AST ALT Alkaline Phosphatase Total Protein Albumin Urine Color Urine Appearance Urine pH Ur Specific [place] Urine Protein Urine Glucose (UA) Urine Ketones Urine Blood Urine Nitrite Urine Bilirubin Urine Urobilinogen Ur Leukocyte Esterase Urine RBC Urine WBC Ur Epithelial Cells Urine Mucus RPR Titer Nonreactive 11/23/16 11/23/16 07:00 07:00 WBC 9.6 RBC 5.25 Hgb 14.9 Hct 45.1 MCV 85.8 MCH 28.5 MCHC 33.2 RDW 14.7 Plt Count 227 MPV 8.0 Neutrophils % 56.2 Lymphocytes % 34.4 Monocytes % 7.1 Eosinophils % 1.6 Basophils % 0.7 Sodium 138 Potassium 3.5 Chloride 101 Carbon Dioxide 26 Anion Gap 11 BUN 17 Creatinine 1.0 Creat Clearance w eGFR POC Glucometer Random Glucose 140 H Calcium 8.2 L Total Bilirubin AST ALT Alkaline Phosphatase Total Protein Albumin Urine Color Urine Appearance Urine pH Ur Specific [place] Urine Protein Urine Glucose (UA) Urine Ketones Urine Blood Urine Nitrite Urine Bilirubin Urine Urobilinogen Ur Leukocyte Esterase Urine RBC Urine WBC Ur Epithelial Cells Urine Mucus RPR Titer Assessment: 11/23/16 10:58 fernanda sx, low k, cont supplements Plan: cont detox, fluids, K
[2016-11-23] MEDS: POTASSIUM CHLORIDE ORAL LIQUID 20 MEQ/15 ML PO SCH ×2 (12:18→22:03)
[2016-11-23 14:04] LABS: URINE APPEARANCE CLEAR; URINE BILIRUBIN NEGATIVE (NEGATIVE); URINE BLOOD 1+ (NEGATIVE); URINE COLOR YELLOW; URINE GLUCOSE (UA) NEGATIVE (NEGATIVE); URINE KETONE NEGATIVE (NEGATIVE); URINE LEUK ESTERASE NEGATIVE (NEGATIVE); URINE NITRITE NEGATIVE (NEGATIVE); URINE PROTEIN NEGATIVE (NEGATIVE); URINE UROBILINOGEN NEGATIVE mg/dL (0.2-1.0)
[2016-11-23 14:27] LABS: URINE HYALINE CAST 1 /lpf; URINE MUCUS RARE; URINE RBC 1 /hpf (0-3); URINE WBC 1 /hpf (3-5)
[2016-11-23] MEDS: MAG HYDROX/AL HYDROX/SIMETH 30 ML UNIT-DOSE CUP PO PRN (20:05)
[2016-11-23] MEDS: THIAMINE HCL 100 MG TABLET (FP) PO SCH (22:03)
[2016-11-23] MEDS: diphenhydrAMINE HCL 50 MG CAPSULE PO PRN (22:03)
[2016-11-24] MEDS: diazePAM 5 MG TABLET PO PRN ×3 (05:14→16:39)
[2016-11-24] MEDS: INSULIN SLIDING SCALE (NOVOLOG) 1 VIAL SQ SCH ×3 (07:07→16:41)
[2016-11-24] MEDS ORDERED: METHADONE HCL 5 MG TABLET (FOR DETOX USE ONLY) PO ONE (10:00)
[2016-11-24] MEDS: PRENATAL VITAMINS W/ FOLIC ACID TABLET (FP) PO SCH (10:24)
[2016-11-24] MEDS: POTASSIUM CHLORIDE ORAL LIQUID 20 MEQ/15 ML PO SCH ×2 (10:24→22:22)
[2016-11-24] MEDS: NICOTINE 14 MG/24 HOURS TOPICAL PATCH TD SCH (10:36)
[2016-11-24] MEDS ORDERED: INSULIN (NOVOLOG) ASPART 100 UNITS/ML 10ML VIAL ONE ×2 (11:28→16:30)
--- NOTE | 2016-11-24 12:35 | PN ---
BHS Progress Note (SOAP) Subjective: DECREASED ANXIETY,IRRITABILITY. C/O SWEATS/CHILLS. Objective: 11/24/16 12:34 Vital Signs Temperature 98.2 F 11/24/16 09:20 Pulse Rate 90 11/24/16 09:20 Respiratory Rate 18 11/24/16 09:20 Blood Pressure 127/71 11/24/16 09:20 O2 Sat by Pulse Oximetry (%) Laboratory Last Values WBC 9.6 K/mm3 (4.0-10.0) 11/23/16 07:00 RBC 5.25 M/mm3 (4.00-5.60) 11/23/16 07:00 Hgb 14.9 GM/dL (11.7-16.9) 11/23/16 07:00 Hct 45.1 % (35.4-49) 11/23/16 07:00 MCV 85.8 fl (80-96) 11/23/16 07:00 MCH 28.5 pg (25.7-33.7) 11/23/16 07:00 MCHC 33.2 g/dl (32.0-35.9) 11/23/16 07:00 RDW 14.7 % (11.9-15.9) 11/23/16 07:00 Plt Count 227 K/MM3 (134-434) 11/23/16 07:00 MPV 8.0 fl (7.5-11.1) 11/23/16 07:00 Neutrophils % 56.2 % (42.8-82.8) 11/23/16 07:00 Lymphocytes % 34.4 % (8-40) 11/23/16 07:00 Monocytes % 7.1 % (3.8-10.2) 11/23/16 07:00 Eosinophils % 1.6 % (0-4.5) 11/23/16 07:00 Basophils % 0.7 % (0-2.0) 11/23/16 07:00 Sodium 138 mmol/L (136-145) 11/23/16 07:00 Potassium 3.5 mmol/L (3.5-5.1) 11/23/16 07:00 Chloride 101 mmol/L (98-107) 11/23/16 07:00 Carbon Dioxide 26 mmol/L (21-32) 11/23/16 07:00 Anion Gap 11 (8-16) 11/23/16 07:00 BUN 17 mg/dL (7-18) 11/23/16 07:00 Creatinine 1.0 mg/dL (0.7-1.3) 11/23/16 07:00 Creat Clearance w eGFR > 60 (>60) 11/22/16 07:50 POC Glucometer 287 UNITS (()) 11/24/16 11:24 Random Glucose 140 mg/dL (74-106) H 11/23/16 07:00 Calcium 8.2 mg/dL (8.5-10.1) L 11/23/16 07:00 Total Bilirubin 0.6 mg/dL (0.2-1.0) 11/22/16 07:50 AST 41 U/L (15-37) H 11/22/16 07:50 ALT 48 U/L (12-78) 11/22/16 07:50 Alkaline Phosphatase 57 U/L (45-117) D 11/22/16 07:50 Total Protein 9.2 g/dl (6.4-8.2) H 11/22/16 07:50 Albumin 4.0 g/dl (3.4-5.0) 11/22/16 07:50 Urine Color Yellow 11/23/16 10:05 Urine Appearance Clear 11/23/16 10:05 Urine pH 5.0 (5.0-8.0) 11/23/16 10:05 Ur Specific [place] 1.015 (1.005-1.025) 11/23/16 10:05 Urine Protein Negative (NEGATIVE) 11/23/16 10:05 Urine Glucose (UA) Negative (NEGATIVE) 11/23/16 10:05 Urine Ketones Negative (NEGATIVE) 11/23/16 10:05 Urine Blood 1+ (NEGATIVE) H 11/23/16 10:05 Urine Nitrite Negative (NEGATIVE) 11/23/16 10:05 Urine Bilirubin Negative (NEGATIVE) 11/23/16 10:05 Urine Urobilinogen Negative mg/dL (0.2-1.0) 11/23/16 10:05 Ur Leukocyte Esterase Negative (NEGATIVE) 11/23/16 10:05 Urine RBC 1 /hpf (0-3) 11/23/16 10:05 Urine WBC 1 /hpf (3-5) 11/23/16 10:05 Ur Epithelial Cells Rare /hpf (FEW) 11/23/16 10:05 Hyaline Casts 1 /lpf 11/23/16 10:05 Urine Mucus Rare 11/23/16 10:05 RPR Titer Nonreactive (NONREACTIVE) 11/22/16 07:50 Assessment: 11/24/16 12:34 WITHDRAWAL SX Plan: CONTINUE DETOX
[2016-11-24] MEDS: diphenhydrAMINE HCL 50 MG CAPSULE PO PRN (22:22)
[2016-11-24] MEDS: THIAMINE HCL 100 MG TABLET (FP) PO SCH (22:22)
[2016-11-25] MEDS: MAG HYDROX/AL HYDROX/SIMETH 30 ML UNIT-DOSE CUP PO PRN (03:09)
[2016-11-25] MEDS: INSULIN SLIDING SCALE (NOVOLOG) 1 VIAL SQ SCH ×3 (07:36→16:36)
[2016-11-25] MEDS ORDERED: METHADONE HCL 10 MG TABLET (FOR DETOX USE ONLY) PO ONE (10:00)
[2016-11-25] MEDS: PRENATAL VITAMINS W/ FOLIC ACID TABLET (FP) PO SCH (10:50)
[2016-11-25] MEDS: POTASSIUM CHLORIDE ORAL LIQUID 20 MEQ/15 ML PO SCH ×2 (10:51→22:11)
[2016-11-25] MEDS: NICOTINE 14 MG/24 HOURS TOPICAL PATCH TD SCH (10:51)
[2016-11-25] MEDS ORDERED: INSULIN (NOVOLOG) ASPART 100 UNITS/ML 10ML VIAL ONE ×2 (10:59→16:33)
--- NOTE | 2016-11-25 12:46 | PN ---
BHS Progress Note (SOAP) Subjective: DECREASED ANXIETY, SWEATS, IRRITABILITY. Objective: 11/25/16 12:45 Vital Signs Temperature 97.0 F L 11/25/16 10:01 Pulse Rate 86 11/25/16 10:01 Respiratory Rate 20 11/25/16 10:01 Blood Pressure 137/88 11/25/16 10:01 O2 Sat by Pulse Oximetry (%) Laboratory Last Values WBC 9.6 K/mm3 (4.0-10.0) 11/23/16 07:00 RBC 5.25 M/mm3 (4.00-5.60) 11/23/16 07:00 Hgb 14.9 GM/dL (11.7-16.9) 11/23/16 07:00 Hct 45.1 % (35.4-49) 11/23/16 07:00 MCV 85.8 fl (80-96) 11/23/16 07:00 MCH 28.5 pg (25.7-33.7) 11/23/16 07:00 MCHC 33.2 g/dl (32.0-35.9) 11/23/16 07:00 RDW 14.7 % (11.9-15.9) 11/23/16 07:00 Plt Count 227 K/MM3 (134-434) 11/23/16 07:00 MPV 8.0 fl (7.5-11.1) 11/23/16 07:00 Neutrophils % 56.2 % (42.8-82.8) 11/23/16 07:00 Lymphocytes % 34.4 % (8-40) 11/23/16 07:00 Monocytes % 7.1 % (3.8-10.2) 11/23/16 07:00 Eosinophils % 1.6 % (0-4.5) 11/23/16 07:00 Basophils % 0.7 % (0-2.0) 11/23/16 07:00 Sodium 138 mmol/L (136-145) 11/23/16 07:00 Potassium 3.5 mmol/L (3.5-5.1) 11/23/16 07:00 Chloride 101 mmol/L (98-107) 11/23/16 07:00 Carbon Dioxide 26 mmol/L (21-32) 11/23/16 07:00 Anion Gap 11 (8-16) 11/23/16 07:00 BUN 17 mg/dL (7-18) 11/23/16 07:00 Creatinine 1.0 mg/dL (0.7-1.3) 11/23/16 07:00 Creat Clearance w eGFR > 60 (>60) 11/22/16 07:50 POC Glucometer 289 UNITS (()) 11/25/16 10:57 Random Glucose 140 mg/dL (74-106) H 11/23/16 07:00 Calcium 8.2 mg/dL (8.5-10.1) L 11/23/16 07:00 Total Bilirubin 0.6 mg/dL (0.2-1.0) 11/22/16 07:50 AST 41 U/L (15-37) H 11/22/16 07:50 ALT 48 U/L (12-78) 11/22/16 07:50 Alkaline Phosphatase 57 U/L (45-117) D 11/22/16 07:50 Total Protein 9.2 g/dl (6.4-8.2) H 11/22/16 07:50 Albumin 4.0 g/dl (3.4-5.0) 11/22/16 07:50 Urine Color Yellow 11/23/16 10:05 Urine Appearance Clear 11/23/16 10:05 Urine pH 5.0 (5.0-8.0) 11/23/16 10:05 Ur Specific [place] 1.015 (1.005-1.025) 11/23/16 10:05 Urine Protein Negative (NEGATIVE) 11/23/16 10:05 Urine Glucose (UA) Negative (NEGATIVE) 11/23/16 10:05 Urine Ketones Negative (NEGATIVE) 11/23/16 10:05 Urine Blood 1+ (NEGATIVE) H 11/23/16 10:05 Urine Nitrite Negative (NEGATIVE) 11/23/16 10:05 Urine Bilirubin Negative (NEGATIVE) 11/23/16 10:05 Urine Urobilinogen Negative mg/dL (0.2-1.0) 11/23/16 10:05 Ur Leukocyte Esterase Negative (NEGATIVE) 11/23/16 10:05 Urine RBC 1 /hpf (0-3) 11/23/16 10:05 Urine WBC 1 /hpf (3-5) 11/23/16 10:05 Ur Epithelial Cells Rare /hpf (FEW) 11/23/16 10:05 Hyaline Casts 1 /lpf 11/23/16 10:05 Urine Mucus Rare 11/23/16 10:05 RPR Titer Nonreactive (NONREACTIVE) 11/22/16 07:50 Assessment: 11/25/16 12:45 WITHDRAWAL SX Plan: CONTINUE DETOX
[2016-11-25] MEDS: diphenhydrAMINE HCL 50 MG CAPSULE PO PRN (22:11)
[2016-11-25] MEDS: THIAMINE HCL 100 MG TABLET (FP) PO SCH (22:11)
[2016-11-26] MEDS ORDERED: METHADONE HCL 5 MG TABLET (FOR DETOX USE ONLY) PO ONE (06:00)
[2016-11-26] MEDS: INSULIN SLIDING SCALE (NOVOLOG) 1 VIAL SQ SCH (07:02)
[2016-11-26 08:23] VITALS: BP 136/83; PULSE 83; TEMP 97.7
--- NOTE | 2016-11-26 08:49 | DS ---
[facility] Detox Discharge Summary Admission Date: 11/21/16 Discharge Date: 11/26/16 - History Present History: Opioid Dependence Additional Comments: DETOX COMPLETED.ALERT O X 3. NAD. PT ENCOURAGED TO FOLLOW UP WITH HIS PMD, DR GUDINO AT [address] [place], [place] FOR MEDICAL MANAGEMENT NEEDED. Pertinent Past History: GERD HEP C WEIGHT LOSS - Physical Exam Results Vital Signs: Vital Signs Temperature 97.7 F 11/26/16 05:00 Pulse Rate 83 11/26/16 05:00 Respiratory Rate 16 11/26/16 05:00 Blood Pressure 136/83 11/26/16 05:00 O2 Sat by Pulse Oximetry (%) Pertinent Admission Physical Exam Findings: WITHDRAWAL SX Laboratory Last Values WBC 9.6 K/mm3 (4.0-10.0) 11/23/16 07:00 RBC 5.25 M/mm3 (4.00-5.60) 11/23/16 07:00 Hgb 14.9 GM/dL (11.7-16.9) 11/23/16 07:00 Hct 45.1 % (35.4-49) 11/23/16 07:00 MCV 85.8 fl (80-96) 11/23/16 07:00 MCH 28.5 pg (25.7-33.7) 11/23/16 07:00 MCHC 33.2 g/dl (32.0-35.9) 11/23/16 07:00 RDW 14.7 % (11.9-15.9) 11/23/16 07:00 Plt Count 227 K/MM3 (134-434) 11/23/16 07:00 MPV 8.0 fl (7.5-11.1) 11/23/16 07:00 Neutrophils % 56.2 % (42.8-82.8) 11/23/16 07:00 Lymphocytes % 34.4 % (8-40) 11/23/16 07:00 Monocytes % 7.1 % (3.8-10.2) 11/23/16 07:00 Eosinophils % 1.6 % (0-4.5) 11/23/16 07:00 Basophils % 0.7 % (0-2.0) 11/23/16 07:00 Sodium 138 mmol/L (136-145) 11/23/16 07:00 Potassium 3.5 mmol/L (3.5-5.1) 11/23/16 07:00 Chloride 101 mmol/L (98-107) 11/23/16 07:00 Carbon Dioxide 26 mmol/L (21-32) 11/23/16 07:00 Anion Gap 11 (8-16) 11/23/16 07:00 BUN 17 mg/dL (7-18) 11/23/16 07:00 Creatinine 1.0 mg/dL (0.7-1.3) 11/23/16 07:00 Creat Clearance w eGFR > 60 (>60) 11/22/16 07:50 POC Glucometer 96 UNITS (()) 11/26/16 05:01 Random Glucose 140 mg/dL (74-106) H 11/23/16 07:00 Calcium 8.2 mg/dL (8.5-10.1) L 11/23/16 07:00 Total Bilirubin 0.6 mg/dL (0.2-1.0) 11/22/16 07:50 AST 41 U/L (15-37) H 11/22/16 07:50 ALT 48 U/L (12-78) 11/22/16 07:50 Alkaline Phosphatase 57 U/L (45-117) D 11/22/16 07:50 Total Protein 9.2 g/dl (6.4-8.2) H 11/22/16 07:50 Albumin 4.0 g/dl (3.4-5.0) 11/22/16 07:50 Urine Color Yellow 11/23/16 10:05 Urine Appearance Clear 11/23/16 10:05 Urine pH 5.0 (5.0-8.0) 11/23/16 10:05 Ur Specific [place] 1.015 (1.005-1.025) 11/23/16 10:05 Urine Protein Negative (NEGATIVE) 11/23/16 10:05 Urine Glucose (UA) Negative (NEGATIVE) 11/23/16 10:05 Urine Ketones Negative (NEGATIVE) 11/23/16 10:05 Urine Blood 1+ (NEGATIVE) H 11/23/16 10:05 Urine Nitrite Negative (NEGATIVE) 11/23/16 10:05 Urine Bilirubin Negative (NEGATIVE) 11/23/16 10:05 Urine Urobilinogen Negative mg/dL (0.2-1.0) 11/23/16 10:05 Ur Leukocyte Esterase Negative (NEGATIVE) 11/23/16 10:05 Urine RBC 1 /hpf (0-3) 11/23/16 10:05 Urine WBC 1 /hpf (3-5) 11/23/16 10:05 Ur Epithelial Cells Rare /hpf (FEW) 11/23/16 10:05 Hyaline Casts 1 /lpf 11/23/16 10:05 Urine Mucus Rare 11/23/16 10:05 RPR Titer Nonreactive (NONREACTIVE) 11/22/16 07:50 - Treatment Hospital Course: Detox Protocol Followed, Detoxed Safely, Responded well, Discharged Condition Good Patient has Accepted a Rehab Referral to: PT REFUSED - Medication Discharge Medications: Ambulatory Orders NK [No Known Home Medication] 06/03/15 - Diagnosis (1) Nicotine dependence Current Visit: Yes Status: Acute Qualifiers: Nicotine product type: cigarettes Substance use status: in withdrawal Qualified Code(s): F17.213 - Nicotine dependence, cigarettes, with withdrawal (2) Opioid dependence with withdrawal Current Visit: Yes Status: Acute (3) Hepatitis C Current Visit: Yes Status: Chronic Qualifiers: Viral hepatitis chronicity: chronic Hepatic coma status: without hepatic coma Qualified Code(s): B18.2 - Chronic viral hepatitis C (4) Weight loss Current Visit: Yes Status: Chronic (5) GERD (gastroesophageal reflux disease) Current Visit: Yes Status: Chronic Qualifiers: Esophagitis presence: without esophagitis Qualified Code(s): K21.9 - Gastro-esophageal reflux disease without esophagitis - AMA Did Patient Leave Against Medical Advice: No
== END 2016-11-26 09:55 | disposition home or self-care (01) | DRG 773 ==
LOC: YASAS 14:25 → Y6N 17:21 → Y3N 19:20
PROVIDERS: ADMIT Internal Medicine Addiction Medicine; ATTEND Internal Medicine Addiction Medicine
PROC: HZ2ZZZZ Detoxification Services for Substance Abuse Treatment (ICD-10-PCS; principal; 2016-11-21)
DX: F11.23 Opioid dependence with withdrawal (principal); F17.213 Nicotine dependence, cigarettes, with withdrawal; B18.2 Chronic viral hepatitis C; K21.9 Gastro-esophageal reflux disease without esophagitis; R63.4 Abnormal weight loss; Z68.26 Body mass index [BMI] 26.0-26.9, adult
CPT/HCPCS: 36415; 80048; 80053; 81003; 81015; 85025; 85027; 86593; 93005; 93010

== ENCOUNTER 2017-03-03 16:13 | Inpatient (IN) | payer OTHER ==
[2017-03-03 16:58] VITALS: BMI 28.1
--- NOTE | 2017-03-03 18:31 | HP ---
COWS - Scale Resting Pulse: 1= [place] 81-100 Sweatin= Chills/Flushing Restless Observation: 3= Extraneous Movement Pupil Size: 0= Normal to Room Light Bone or Joint Aches: 2= Severe Diffuse Aches Runny Nose/ Eye Tearin= Runny Nose/Eyes GI Upset > 30mins: 3= Vomiting/Diarrhea Tremor Observation: 2= Slight Tremor Visible Yawning Observation: 0= None Anxiety or Irritability: 2=Irritable/Anxious Goose Flesh Skin: 0=Smooth Skin COWS Score: 16 Admission [facility] Chief Complaint: WITHDRAWAL SX Allergies/Adverse Reactions: Allergies Allergy/AdvReac Type Severity Reaction Status Date / Time No Known Drug Allergies Allergy Verified 03/03/17 17:15 History of Present Illness: 66 YEARS OLD MALE WITH LONG HISTORY OF HEROIN NICOTINE DEPENDENCE HAS DEPRESSION IS ADMITTED TO DETOX Exam Limitations: No Limitations - Ebola screening Have you traveled outside of the country in the last 21 days: No Have you had contact with anyone from an Ebola affected area: No Have you been sick,other than usual withdrawal symptoms: No Do you have a fever: No - Review of Systems Constitutional: Changes in sleep, Weight Stable EENT: reports: Blurred Vision (EYE GLASSES) Respiratory: reports: Productive cough (DARK BROWNISH) Cardiac: reports: No Symptoms Reported GI: reports: Nausea, Poor Fluid Intake, Vomiting, Indigestion, Abdominal cramping : reports: No Symptoms Reported Musculoskeletal: reports: Back Pain, Joint Pain, Muscle Pain, Neck Pain Integumentary: reports: No Symptoms Reported Neuro: reports: Tremors Endocrine: reports: No Symptoms Reported Hematology: reports: No Symptoms Reported Psychiatric: reports: Judgement Intact, Orientated x3, Anxious, Depressed Other Systems: Reviewed and Negative Patient History - Patient Medical History Hx Anemia: No Hx Asthma: No Hx Chronic Obstructive Pulmonary Disease (COPD): No Hx Cancer: No Hx Cardiac Disorders: No Hx Congestive Heart Failure: No Hx Hypertension: No Hx Hypercholesterolemia: No Hx Pacemaker: No HX Cerebrovascular Accident: No Hx Seizures: No Hx Dementia: No Hx Diabetes: No Hx Gastrointestinal Disorders: No Hx Liver Disease: No Hx Genitourinary Disorders: No Hx Sexually Transmitted Disorders: No Hx Renal Disease (ESRD): No Hx Thyroid Disease: No Hx Human Immunodeficiency Virus (HIV): No Hx Hepatitis C: Yes Hx Depression: Yes Hx Suicide Attempt: No Hx Bipolar Disorder: No Hx Schizophrenia: No - Patient Surgical History Past Surgical History: No Hx Neurologic Surgery: No Hx Cataract Extraction: No Hx Cardiac Surgery: No Hx Lung Surgery: No Hx Breast Surgery: No Hx Breast Biopsy: No Hx Abdominal Surgery: No Hx Appendectomy: No Hx Cholecystectomy: No Hx Genitourinary Surgery: No Hx Orthopedic Surgery: No - PPD History Previous Implant?: Yes Documented Results: Negative w/proof Implanted On Prior [facility] Admission?: Yes Date: 06/07/16 Results: 0 MM PPD to be Administered?: No - Smoking Cessation Smoking history: Current every day smoker Have you smoked in the past 12 months: Yes Aproximately how many cigarettes per day: 10 Cigars Per Day: 0 Hx Chewing Tobacco Use: No Initiated information on smoking cessation: Yes 'Breaking Loose' booklet given: 03/03/17 - Substance & Tx. History Hx Alcohol Use: No Hx Substance Use: Yes Substance Use Type: Heroin, Opiates Hx Substance Use Treatment: Yes (11/2016 [facility] - Substances Abused Heroin Route: Inhalation Frequency: Daily Amount used: 10-15 BAGS Age of first use: 40 Date of Last Use: 03/03/17 Family Disease History - Family Disease History Family Disease History: Heart Disease: Mother ( FROM CAD), Other: Father ( NO CONTACT) Admission Physical Exam S - Vital Signs Vital Signs: Vital Signs - 24 hr 03/03/17 16:56 Temperature 98.9 F Pulse Rate 92 H Respiratory 18 Rate Blood Pressure 129/77 - Physical General Appearance: Yes: Nourished, Appropriately Dressed, Mild Distress, Tremorous, Irritable, Sweating, Anxious HEENTM: Yes: Hearing grossly Normal, Normal ENT Inspection, Normocephalic, Normal Voice Respiratory: Yes: Chest Non-Tender, Lungs Clear, Normal Breath Sounds, No Respiratory Distress, No Accessory Muscle Use Neck: Yes: Supple, Trachea in good position Breast: Yes: Breasts Symetrical Cardiology: Yes: Regular Rhythm, S1, S2, Tachycardia Abdominal: Yes: Normal Bowel Sounds, Non Tender, Soft Genitourinary: Yes: Within Normal Limits Back: Yes: Normal Inspection Musculoskeletal: Yes: full range of Motion, Gait Steady, Back pain, Muscle Pain Extremities: Yes: Normal Inspection, Normal Range of Motion, Non-Tender, Tremors Neurological: Yes: Fully Oriented, Alert, Motor Strength 5/5, Normal Response, Depressed Affect Integumentary: Yes: Warm Lymphatic: Yes: Within Normal Limits - Diagnostic (1) Nicotine dependence Current Visit: No Status: Acute Qualifiers: Nicotine product type: cigarettes Substance use status: in withdrawal Qualified Code(s): F17.213 - Nicotine dependence, cigarettes, with withdrawal (2) Opioid dependence with withdrawal Current Visit: Yes Status: Acute (3) GERD (gastroesophageal reflux disease) Current Visit: Yes Status: Chronic Qualifiers: Esophagitis presence: without esophagitis Qualified Code(s): K21.9 - Gastro -esophageal reflux disease without esophagitis (4) Hepatitis C Current Visit: Yes Status: Chronic Qualifiers: Viral hepatitis chronicity: chronic Hepatic coma status: without hepatic coma Qualified Code(s): B18.2 - Chronic viral hepatitis C Cleared for Admission [facility] - Detox or Rehab [facility] Level of Care: Medically Managed Detox Regimen/Protocol: Methadone [facility] Breath Alcohol Content Breath Alcohol Content: 0 Urine Drug Screen - Results Drug Screen Negative: No Urine Drug Screen Results: OPI-Opiates, BZO-Benzodiazepines, MTD-Methadone
[2017-03-03] MEDS ORDERED: METHADONE HCL 10 MG TABLET (FOR DETOX USE ONLY) PO ONE ×2 (18:37→23:00)
[2017-03-03] MEDS ORDERED: guaiFENesin/D-METHORPHAN HB 10 ML UNIT-DOSE CUPS PO PRN (18:37)
[2017-03-03] MEDS ORDERED: MAG HYDROX/AL HYDROX/SIMETH 30 ML UNIT-DOSE CUP PO PRN (18:37)
[2017-03-03] MEDS ORDERED: NICOTINE POLACRILEX 2 MG GUM BC PRN (18:37)
[2017-03-03] MEDS ORDERED: MENTHOL/PHENOL 1 EACH UD MM PRN (18:37)
[2017-03-03] MEDS ORDERED: LOPERAMIDE HCL 2 MG CAPSULE PO PRN (18:37)
[2017-03-03] MEDS ORDERED: MAGNESIUM CITRATE 300 ML BOTTLE PO PRN (18:37)
[2017-03-03] MEDS ORDERED: P-EPHED 60MG/TRIPROLIDI 2.5MG TABLET PO PRN (18:37)
[2017-03-03] MEDS ORDERED: MAGNESIUM HYDROX 2400MG/30ML ORAL SUSPENSION 30 ML CUP PO PRN (18:37)
[2017-03-03] MEDS: diazePAM 5 MG TABLET PO PRN (20:22)
[2017-03-03] MEDS: THIAMINE HCL 100 MG TABLET (FP) PO SCH (22:38)
[2017-03-03] MEDS: RANITIDINE HCL 150 MG TABLET (FP) PO SCH (22:38)
[2017-03-04 01:20] LABS: URINE APPEARANCE SLCLOUDY; URINE BILIRUBIN NEGATIVE (NEGATIVE); URINE BLOOD NEGATIVE (NEGATIVE); URINE COLOR YELLOW; URINE GLUCOSE (UA) NEGATIVE (NEGATIVE); URINE KETONE NEGATIVE (NEGATIVE); URINE LEUK ESTERASE TRACE (NEGATIVE); URINE NITRITE NEGATIVE (NEGATIVE); URINE PROTEIN NEGATIVE (NEGATIVE); URINE UROBILINOGEN NEGATIVE mg/dL (0.2-1.0)
[2017-03-04 02:17] LABS: URINE HYALINE CAST 6 /lpf; URINE MUCUS RARE; URINE RBC 2 /hpf (0-3); URINE WBC 10 /hpf (3-5)
--- NOTE | 2017-03-04 07:39 | CONSULT ---
[facility] Psychiatric Consult - Data Date of interview: 03/04/17 Admission source: [facility] Identifying data: This is 66 years old male with no psychiatric hospitalization history intoxicated with Opioids, Nicotine, Methadone and Benzodiazeoins Substance Abuse History: - Smoking Cessation. Smoking history: Current every day smoker. Have you smoked in the past 12 months: Yes. Aproximately how many cigarettes per day: 10. Cigars Per Day: 0. Hx Chewing Tobacco Use: No. Initiated information on smoking cessation: Yes. 'Breaking Loose' booklet given : 03/03/17. - Substance & Tx. History. Hx Alcohol Use: No. Hx Substance Use: Yes. Substance Use Type: Heroin, Opiates. Hx Substance Use Treatment: Yes (2016 [facility]). - Substances Abused. Heroin. Route: Inhalation. Frequency: Daily. Amount used: 10-15 BAGS. Age of first use: 40. Date of Last Use: 03/03/17 Medical History: GERD, HepC+, Psychiatric History: PATIENT REPORTS NO PAST PSYCHIATRIC HISTORY, NO MEDICATIONS TAKING PRIOR TO ADMISSION Physical/Sexual Abuse/Trauma History: Denies Additional Comment: Observation. Detox Unit Care Protocol Mental Status Exam - Mental Status Exam Alert and Oriented to: Person Cognitive Function: Fair Patient Appearance: Unkempt Mood: Sad Patient Behavior: Sedated Speech Pattern: Delayed Voice Loudness: Mildly Soft/Quiet Thought Process: Circumstantial Thought Disorder: Being Controlled Hallucinations: Denies Suicidal Ideation: Denies Homicidal Ideation: Denies Insight/Judgement: Fair Sleep: Difficulty falling asleep Appetite: Fair Muscle strength/Tone: Mild Hypotonicity Gait/Station: Shuffling Additional Comments: Observation. Detox Unit Care Protocol Psychiatric Findings - Problem List ([place] 1, 2,3) (1) Benzodiazepine abuse Current Visit: Yes Status: Acute (2) Opioid dependence with withdrawal Current Visit: Yes Status: Acute (3) Nicotine dependence Current Visit: No Status: Acute Qualifiers: Nicotine product type: cigarettes Substance use status: in withdrawal Qualified Code(s): F17.213 - Nicotine dependence, cigarettes, with withdrawal - Initial Treatment Plan Initial Treatment Plan: Observation. Detox Unit Care Protocol
[2017-03-04 09:58] LABS: MCH 27.5 pg (25.7-33.7); MCHC 31.9 g/dl (32.0-35.9); MEAN CELL VOLUME 86.3 fl (80-96); MEAN PLT VOLUME 8.1 fl (7.5-11.1); PLATELET COUNT 200 K/MM3 (134-434); RDW 15.7 % (11.9-15.9); WHITE BLOOD COUNT 7.7 K/mm3 (4.0-10.0)
[2017-03-04] MEDS ORDERED: METHADONE HCL 10 MG TABLET (FOR DETOX USE ONLY) PO ONE (10:00)
[2017-03-04 10:35] LABS: ALBUMIN 3.6 g/dl (3.4-5.0); ALK PHOS 53 U/L (45-117); ANION GAP 9 (8-16); BILIRUBIN,TOTAL 0.5 mg/dL (0.2-1.0); CALCIUM 8.1 mg/dL (8.5-10.1); CO2 26 mmol/L (21-32); GLUCOSE,RANDOM 91 mg/dL (74-106); SGOT/AST 23 U/L (15-37); SGPT/ALT 32 U/L (12-78)
[2017-03-04] MEDS: RANITIDINE HCL 150 MG TABLET (FP) PO SCH ×2 (10:58→22:12)
[2017-03-04] MEDS: diazePAM 5 MG TABLET PO PRN ×2 (10:58→22:12)
[2017-03-04] MEDS: PRENATAL VITAMINS W/ FOLIC ACID TABLET (FP) PO SCH (10:58)
[2017-03-04] MEDS: NICOTINE 14 MG/24 HOURS TOPICAL PATCH TD SCH (10:58)
--- NOTE | 2017-03-04 11:14 | PN ---
BHS COWS - Scale Resting Pulse: 1= [place] 81-100 Sweatin= Chills/Flushing Restless Observation: 1= Difficult to Sit Still Pupil Size: 1= Pupils >than Normal Bone or Joint Aches: 1= Mild Discomfort Runny Nose/ Eye Tearin= Nasal Congestion GI Upset > 30mins: 2= Nausea/Diarrhea Tremor Observation of Outstretched Hands: 2= Slight Tremor Visible Yawning Observation: 1= 1-2x During Session Anxiety or Irritability: 2=Irritable/Anxious Goose Flesh Skin: 3=Piloerection COWS Score: 16 BHS Progress Note (SOAP) Subjective: nausea, sweats, interrupted sleep, anxiety, tremors Objective: 03/04/17 11:13 Vital Signs - 24 hr 03/03/17 03/03/17 03/04/17 16:56 22:14 00:30 Temperature 98.9 F 99.1 F Pulse Rate 92 H 84 Respiratory 18 18 18 Rate Blood Pressure 129/77 143/83 03/04/17 03/04/17 03/04/17 03:30 06:24 09:25 Temperature 98.6 F 97.9 F Pulse Rate 56 L 70 Respiratory 18 16 20 Rate Blood Pressure 133/67 156/74 Laboratory Tests 03/03/17 03/04/17 03/04/17 21:52 07:00 07:00 WBC 7.7 RBC 4.62 Hgb 12.7 D Hct 39.8 MCV 86.3 MCH 27.5 MCHC 31.9 L RDW 15.7 Plt Count 200 MPV 8.1 Sodium 141 Potassium 4.3 D Chloride 106 Carbon Dioxide 26 Anion Gap 9 BUN 23 H D Creatinine 1.0 Creat Clearance w eGFR > 60 Random Glucose 91 D Calcium 8.1 L Total Bilirubin 0.5 AST 23 D ALT 32 D Alkaline Phosphatase 53 Total Protein 8.0 Albumin 3.6 Urine Color Yellow Urine Appearance Slcloudy Urine pH 5.0 Ur Specific [place] 1.015 Urine Protein Negative Urine Glucose (UA) Negative Urine Ketones Negative Urine Blood Negative Urine Nitrite Negative Urine Bilirubin Negative Urine Urobilinogen Negative Urine WBC (Auto) 10 Urine RBC (Auto) 2 Ur Epithelial Cells Rare Hyaline Casts 6 Urine Mucus Rare Assessment: 03/04/17 11:13 withdrawwal sx, cont detox, fluids, encourage ambualtion
[2017-03-04 11:33] LABS: URINE LEUK ESTERASE TRACE (NEGATIVE)
--- NOTE | 2017-03-04 16:35 | EKG ---
Test Reason : Blood Pressure : / mmHG Vent. Rate : 080 BPM Atrial Rate : 080 BPM P-R Int : 188 ms QRS Dur : 076 ms QT Int : 372 ms P-R-T Axes : 053 -11 043 degrees QTc Int : 429 ms NORMAL SINUS RHYTHM NORMAL ECG WHEN COMPARED WITH ECG OF 21-NOV-2016 19:46, NO SIGNIFICANT CHANGE WAS FOUND Confirmed by JOEL MADDEN MD ([id number]) on 03/04/2017 4:35:14 PM Referred By: Confirmed By:JOEL MADDEN MD
[2017-03-04] MEDS: THIAMINE HCL 100 MG TABLET (FP) PO SCH (22:11)
[2017-03-05] MEDS ORDERED: METHADONE HCL 5 MG TABLET (FOR DETOX USE ONLY) PO ONE (10:00)
[2017-03-05] MEDS: NICOTINE 14 MG/24 HOURS TOPICAL PATCH TD SCH (11:02)
[2017-03-05] MEDS: diazePAM 5 MG TABLET PO PRN ×2 (11:03→23:03)
[2017-03-05] MEDS: RANITIDINE HCL 150 MG TABLET (FP) PO SCH ×2 (11:03→23:03)
[2017-03-05] MEDS: PRENATAL VITAMINS W/ FOLIC ACID TABLET (FP) PO SCH (11:03)
--- NOTE | 2017-03-05 11:38 | PN ---
BHS COWS - Scale Resting Pulse: 0= [place] 80 or Below Sweatin=Flushed/Facial Moisture Restless Observation: 1= Difficult to Sit Still Pupil Size: 0= Normal to Room Light Bone or Joint Aches: 2= Severe Diffuse Aches Runny Nose/ Eye Tearin= Nasal Congestion GI Upset > 30mins: 2= Nausea/Diarrhea Tremor Observation of Outstretched Hands: 2= Slight Tremor Visible Yawning Observation: 2= >3x During Session Anxiety or Irritability: 2=Irritable/Anxious Goose Flesh Skin: 0=Smooth Skin COWS Score: 14 BHS Progress Note (SOAP) Subjective: agitation cough sweats interrupted sleep Objective: 03/05/17 11:37 Vital Signs Temperature 97.7 F 03/05/17 10:07 Pulse Rate 74 03/05/17 10:07 Respiratory Rate 18 03/05/17 10:07 Blood Pressure 145/76 03/05/17 10:07 O2 Sat by Pulse Oximetry (%) Laboratory Tests 03/03/17 03/04/17 03/04/17 21:52 07:00 07:00 WBC 7.7 RBC 4.62 Hgb 12.7 D Hct 39.8 MCV 86.3 MCH 27.5 MCHC 31.9 L RDW 15.7 Plt Count 200 MPV 8.1 Sodium 141 Potassium 4.3 D Chloride 106 Carbon Dioxide 26 Anion Gap 9 BUN 23 H D Creatinine 1.0 Creat Clearance w eGFR > 60 Random Glucose 91 D Calcium 8.1 L Total Bilirubin 0.5 AST 23 D ALT 32 D Alkaline Phosphatase 53 Total Protein 8.0 Albumin 3.6 Urine Color Yellow Urine Appearance Slcloudy Urine pH 5.0 Ur Specific [place] 1.015 Urine Protein Negative Urine Glucose (UA) Negative Urine Ketones Negative Urine Blood Negative Urine Nitrite Negative Urine Bilirubin Negative Urine Urobilinogen Negative Ur Leukocyte Esterase Trace H Urine WBC (Auto) 10 Urine RBC (Auto) 2 Ur Epithelial Cells Rare Hyaline Casts 6 Urine Mucus Rare RPR Titer 03/04/17 07:00 WBC RBC Hgb Hct MCV MCH MCHC RDW Plt Count MPV Sodium Potassium Chloride Carbon Dioxide Anion Gap BUN Creatinine Creat Clearance w eGFR Random Glucose Calcium Total Bilirubin AST ALT Alkaline Phosphatase Total Protein Albumin Urine Color Urine Appearance Urine pH Ur Specific [place] Urine Protein Urine Glucose (UA) Urine Ketones Urine Blood Urine Nitrite Urine Bilirubin Urine Urobilinogen Ur Leukocyte Esterase Urine WBC (Auto) Urine RBC (Auto) Ur Epithelial Cells Hyaline Casts Urine Mucus RPR Titer Nonreactive aaox3 ambulating no acute distress Assessment: 03/05/17 11:37 withdrawal sx Plan: continue detox increase fluids robutussin prn
[2017-03-05] MEDS: THIAMINE HCL 100 MG TABLET (FP) PO SCH (23:03)
[2017-03-06] MEDS ORDERED: METHADONE HCL 5 MG TABLET (FOR DETOX USE ONLY) PO ONE (10:00)
[2017-03-06] MEDS: RANITIDINE HCL 150 MG TABLET (FP) PO SCH ×2 (10:49→23:02)
[2017-03-06] MEDS: PRENATAL VITAMINS W/ FOLIC ACID TABLET (FP) PO SCH (10:49)
[2017-03-06] MEDS: NICOTINE 14 MG/24 HOURS TOPICAL PATCH TD SCH (10:51)
[2017-03-06] MEDS: ACETAMINOPHEN 325 MG TABLET (FP) PO PRN (10:54)
--- NOTE | 2017-03-06 18:41 | PN ---
BHS Progress Note (SOAP) Subjective: Sweating,interrupted sleep,restless Objective: 03/06/17 18:39 Vital Signs - 8 hr 03/06/17 03/06/17 15:33 18:11 Temperature 97.9 F 98.1 F Pulse Rate 91 H 73 Respiratory 18 18 Rate Blood Pressure 111/53 126/69 Laboratory Tests 03/03/17 03/04/17 03/04/17 21:52 07:00 07:00 WBC 7.7 RBC 4.62 Hgb 12.7 D Hct 39.8 MCV 86.3 MCH 27.5 MCHC 31.9 L RDW 15.7 Plt Count 200 MPV 8.1 Sodium 141 Potassium 4.3 D Chloride 106 Carbon Dioxide 26 Anion Gap 9 BUN 23 H D Creatinine 1.0 Creat Clearance w eGFR > 60 Random Glucose 91 D Calcium 8.1 L Total Bilirubin 0.5 AST 23 D ALT 32 D Alkaline Phosphatase 53 Total Protein 8.0 Albumin 3.6 Urine Color Yellow Urine Appearance Slcloudy Urine pH 5.0 Ur Specific [place] 1.015 Urine Protein Negative Urine Glucose (UA) Negative Urine Ketones Negative Urine Blood Negative Urine Nitrite Negative Urine Bilirubin Negative Urine Urobilinogen Negative Ur Leukocyte Esterase Trace H Urine WBC (Auto) 10 Urine RBC (Auto) 2 Ur Epithelial Cells Rare Hyaline Casts 6 Urine Mucus Rare RPR Titer 03/04/17 07:00 WBC RBC Hgb Hct MCV MCH MCHC RDW Plt Count MPV Sodium Potassium Chloride Carbon Dioxide Anion Gap BUN Creatinine Creat Clearance w eGFR Random Glucose Calcium Total Bilirubin AST ALT Alkaline Phosphatase Total Protein Albumin Urine Color Urine Appearance Urine pH Ur Specific [place] Urine Protein Urine Glucose (UA) Urine Ketones Urine Blood Urine Nitrite Urine Bilirubin Urine Urobilinogen Ur Leukocyte Esterase Urine WBC (Auto) Urine RBC (Auto) Ur Epithelial Cells Hyaline Casts Urine Mucus RPR Titer Nonreactive labs noted Assessment: 03/06/17 18:41 Withdrawal sx. Plan: Continue detox
[2017-03-06] MEDS: THIAMINE HCL 100 MG TABLET (FP) PO SCH (23:02)
[2017-03-06] MEDS ORDERED: hydrOXYzine PAMOATE 50 MG CAPSULE (FP) PO ONE (23:40)
[2017-03-07] MEDS ORDERED: METHADONE HCL 10 MG TABLET (FOR DETOX USE ONLY) PO ONE (10:00)
--- NOTE | 2017-03-07 10:09 | PN ---
BHS Progress Note (SOAP) Subjective: Sweating,interrupted sleep,restless Objective: 03/07/17 10:08 Vital Signs - 8 hr 03/07/17 03/07/17 03:30 06:57 Temperature 98.4 F Pulse Rate 77 Respiratory 18 18 Rate Blood Pressure 120/77 Laboratory Tests 03/03/17 03/04/17 03/04/17 21:52 07:00 07:00 WBC 7.7 RBC 4.62 Hgb 12.7 D Hct 39.8 MCV 86.3 MCH 27.5 MCHC 31.9 L RDW 15.7 Plt Count 200 MPV 8.1 Sodium 141 Potassium 4.3 D Chloride 106 Carbon Dioxide 26 Anion Gap 9 BUN 23 H D Creatinine 1.0 Creat Clearance w eGFR > 60 Random Glucose 91 D Calcium 8.1 L Total Bilirubin 0.5 AST 23 D ALT 32 D Alkaline Phosphatase 53 Total Protein 8.0 Albumin 3.6 Urine Color Yellow Urine Appearance Slcloudy Urine pH 5.0 Ur Specific [place] 1.015 Urine Protein Negative Urine Glucose (UA) Negative Urine Ketones Negative Urine Blood Negative Urine Nitrite Negative Urine Bilirubin Negative Urine Urobilinogen Negative Ur Leukocyte Esterase Trace H Urine WBC (Auto) 10 Urine RBC (Auto) 2 Ur Epithelial Cells Rare Hyaline Casts 6 Urine Mucus Rare RPR Titer 03/04/17 07:00 WBC RBC Hgb Hct MCV MCH MCHC RDW Plt Count MPV Sodium Potassium Chloride Carbon Dioxide Anion Gap BUN Creatinine Creat Clearance w eGFR Random Glucose Calcium Total Bilirubin AST ALT Alkaline Phosphatase Total Protein Albumin Urine Color Urine Appearance Urine pH Ur Specific [place] Urine Protein Urine Glucose (UA) Urine Ketones Urine Blood Urine Nitrite Urine Bilirubin Urine Urobilinogen Ur Leukocyte Esterase Urine WBC (Auto) Urine RBC (Auto) Ur Epithelial Cells Hyaline Casts Urine Mucus RPR Titer Nonreactive labs noted Assessment: 03/07/17 10:08 Withdrawal sx. Plan: Continue detox
[2017-03-07] MEDS: PRENATAL VITAMINS W/ FOLIC ACID TABLET (FP) PO SCH (10:14)
[2017-03-07] MEDS: RANITIDINE HCL 150 MG TABLET (FP) PO SCH ×2 (10:14→22:22)
[2017-03-07] MEDS: NICOTINE 14 MG/24 HOURS TOPICAL PATCH TD SCH (10:15)
[2017-03-07] MEDS: ACETAMINOPHEN 325 MG TABLET (FP) PO PRN (12:31)
[2017-03-07] MEDS: THIAMINE HCL 100 MG TABLET (FP) PO SCH (22:22)
[2017-03-07] MEDS: hydrOXYzine PAMOATE 50 MG CAPSULE (FP) PO SCH (22:22)
[2017-03-08] MEDS ORDERED: METHADONE HCL 5 MG TABLET (FOR DETOX USE ONLY) PO ONE (06:00)
--- NOTE | 2017-03-08 09:02 | PN ---
BHS Progress Note (SOAP) Subjective: interrupted sleep, sweats, Objective: 03/08/17 09:00 Vital Signs Temperature 97.9 F 03/08/17 06:23 Pulse Rate 73 03/08/17 06:23 Respiratory Rate 18 03/08/17 06:23 Blood Pressure 139/75 03/08/17 06:23 O2 Sat by Pulse Oximetry (%) Laboratory Tests 03/03/17 03/04/17 03/04/17 21:52 07:00 07:00 WBC 7.7 RBC 4.62 Hgb 12.7 D Hct 39.8 MCV 86.3 MCH 27.5 MCHC 31.9 L RDW 15.7 Plt Count 200 MPV 8.1 Sodium 141 Potassium 4.3 D Chloride 106 Carbon Dioxide 26 Anion Gap 9 BUN 23 H D Creatinine 1.0 Creat Clearance w eGFR > 60 Random Glucose 91 D Calcium 8.1 L Total Bilirubin 0.5 AST 23 D ALT 32 D Alkaline Phosphatase 53 Total Protein 8.0 Albumin 3.6 Urine Color Yellow Urine Appearance Slcloudy Urine pH 5.0 Ur Specific [place] 1.015 Urine Protein Negative Urine Glucose (UA) Negative Urine Ketones Negative Urine Blood Negative Urine Nitrite Negative Urine Bilirubin Negative Urine Urobilinogen Negative Ur Leukocyte Esterase Trace H Urine WBC (Auto) 10 Urine RBC (Auto) 2 Ur Epithelial Cells Rare Hyaline Casts 6 Urine Mucus Rare RPR Titer 03/04/17 07:00 WBC RBC Hgb Hct MCV MCH MCHC RDW Plt Count MPV Sodium Potassium Chloride Carbon Dioxide Anion Gap BUN Creatinine Creat Clearance w eGFR Random Glucose Calcium Total Bilirubin AST ALT Alkaline Phosphatase Total Protein Albumin Urine Color Urine Appearance Urine pH Ur Specific [place] Urine Protein Urine Glucose (UA) Urine Ketones Urine Blood Urine Nitrite Urine Bilirubin Urine Urobilinogen Ur Leukocyte Esterase Urine WBC (Auto) Urine RBC (Auto) Ur Epithelial Cells Hyaline Casts Urine Mucus RPR Titer Nonreactive pt aox3 in nad ambulating Assessment: 03/08/17 09:01 withdrawal sx's Plan: cont. detox increase fluids d/c in am
[2017-03-08] MEDS: NICOTINE 14 MG/24 HOURS TOPICAL PATCH TD SCH (10:41)
[2017-03-08] MEDS: PRENATAL VITAMINS W/ FOLIC ACID TABLET (FP) PO SCH (10:41)
[2017-03-08] MEDS: ACETAMINOPHEN 325 MG TABLET (FP) PO PRN ×2 (10:41→22:28)
[2017-03-08] MEDS: RANITIDINE HCL 150 MG TABLET (FP) PO SCH ×2 (10:41→22:28)
[2017-03-08] MEDS: THIAMINE HCL 100 MG TABLET (FP) PO SCH (22:28)
[2017-03-08] MEDS: hydrOXYzine PAMOATE 50 MG CAPSULE (FP) PO SCH (22:28)
[2017-03-09] MEDS: PRENATAL VITAMINS W/ FOLIC ACID TABLET (FP) PO SCH (10:07)
[2017-03-09] MEDS: NICOTINE 14 MG/24 HOURS TOPICAL PATCH TD SCH (12:31)
[2017-03-09] MEDS: RANITIDINE HCL 150 MG TABLET (FP) PO SCH (12:31)
[2017-03-09] MEDS: ACETAMINOPHEN 325 MG TABLET (FP) PO PRN (13:26)
[2017-03-09 14:05] VITALS: BP 160/73; PULSE 98; TEMP 97.5
--- NOTE | 2017-03-09 14:43 | DS ---
[facility] Detox Discharge Summary Admission Date: 03/03/17 Discharge Date: 03/09/17 - History Present History: Opioid Dependence Pertinent Past History: GERD Hepatitis C - Physical Exam Results Vital Signs: Vital Signs Temperature 97.5 F L 03/09/17 14:05 Pulse Rate 98 H 03/09/17 14:05 Respiratory Rate 18 03/09/17 14:05 Blood Pressure 160/73 03/09/17 14:05 O2 Sat by Pulse Oximetry (%) Pertinent Admission Physical Exam Findings: Withdrawal symptoms Laboratory Tests 03/03/17 03/04/17 03/04/17 21:52 07:00 07:00 WBC 7.7 RBC 4.62 Hgb 12.7 D Hct 39.8 MCV 86.3 MCH 27.5 MCHC 31.9 L RDW 15.7 Plt Count 200 MPV 8.1 Sodium 141 Potassium 4.3 D Chloride 106 Carbon Dioxide 26 Anion Gap 9 BUN 23 H D Creatinine 1.0 Creat Clearance w eGFR > 60 Random Glucose 91 D Calcium 8.1 L Total Bilirubin 0.5 AST 23 D ALT 32 D Alkaline Phosphatase 53 Total Protein 8.0 Albumin 3.6 Urine Color Yellow Urine Appearance Slcloudy Urine pH 5.0 Ur Specific [place] 1.015 Urine Protein Negative Urine Glucose (UA) Negative Urine Ketones Negative Urine Blood Negative Urine Nitrite Negative Urine Bilirubin Negative Urine Urobilinogen Negative Ur Leukocyte Esterase Trace H Urine WBC (Auto) 10 Urine RBC (Auto) 2 Ur Epithelial Cells Rare Hyaline Casts 6 Urine Mucus Rare RPR Titer 03/04/17 07:00 WBC RBC Hgb Hct MCV MCH MCHC RDW Plt Count MPV Sodium Potassium Chloride Carbon Dioxide Anion Gap BUN Creatinine Creat Clearance w eGFR Random Glucose Calcium Total Bilirubin AST ALT Alkaline Phosphatase Total Protein Albumin Urine Color Urine Appearance Urine pH Ur Specific [place] Urine Protein Urine Glucose (UA) Urine Ketones Urine Blood Urine Nitrite Urine Bilirubin Urine Urobilinogen Ur Leukocyte Esterase Urine WBC (Auto) Urine RBC (Auto) Ur Epithelial Cells Hyaline Casts Urine Mucus RPR Titer Nonreactive Labs noted: bun 23 (encouraged to drink lots of water for hydration) - Treatment Hospital Course: Detox Protocol Followed, Detoxed Safely, Responded well, Discharged Condition Good - Medication Discharge Medications: Ambulatory Orders NK [No Known Home Medication] 06/03/15 - Diagnosis (1) GERD (gastroesophageal reflux disease) Current Visit: Yes Status: Chronic Qualifiers: Esophagitis presence: without esophagitis Qualified Code(s): K21.9 - Gastro -esophageal reflux disease without esophagitis (2) Hepatitis C Current Visit: Yes Status: Chronic Qualifiers: Viral hepatitis chronicity: chronic Hepatic coma status: without hepatic coma Qualified Code(s): B18.2 - Chronic viral hepatitis C (3) Opioid dependence with withdrawal Current Visit: Yes Status: Acute (4) Nicotine dependence Current Visit: No Status: Chronic Qualifiers: Nicotine product type: cigarettes Substance use status: in withdrawal Qualified Code(s): F17.213 - Nicotine dependence, cigarettes, with withdrawal - AMA Did Patient Leave Against Medical Advice: No (F/U with PCP within 1 week)
== END 2017-03-09 17:20 | disposition other institution (70) | DRG 773 ==
LOC: YASAS 16:13 → Y6N 18:17
PROVIDERS: ADMIT Internal Medicine; ATTEND Internal Medicine
PROC: HZ2ZZZZ Detoxification Services for Substance Abuse Treatment (ICD-10-PCS; principal; 2017-03-03)
DX: F11.23 Opioid dependence with withdrawal (principal); F13.10 Sedative, hypnotic or anxiolytic abuse, uncomplicated; F17.210 Nicotine dependence, cigarettes, uncomplicated; B18.2 Chronic viral hepatitis C; K21.9 Gastro-esophageal reflux disease without esophagitis; F32.9 Major depressive disorder, single episode, unspecified
CPT/HCPCS: 36415; 80053; 81003; 81015; 85027; 86593; 93005; 93010

== ENCOUNTER 2017-03-09 17:28 | Inpatient (IN) | payer OTHER ==
[2017-03-09] MEDS ORDERED: IBUPROFEN 400 MG TABLET (FP) PO PRN (18:02)
[2017-03-09] MEDS ORDERED: MENTHOL/PHENOL 1 EACH UD MM PRN (18:02)
[2017-03-09] MEDS ORDERED: LOPERAMIDE HCL 2 MG CAPSULE PO PRN (18:02)
[2017-03-09] MEDS ORDERED: guaiFENesin/D-METHORPHAN HB 10 ML UNIT-DOSE CUPS PO PRN (18:02)
[2017-03-09] MEDS ORDERED: MAGNESIUM CITRATE 300 ML BOTTLE PO PRN (18:02)
[2017-03-09] MEDS ORDERED: P-EPHED 60MG/TRIPROLIDI 2.5MG TABLET PO PRN (18:02)
[2017-03-09] MEDS ORDERED: MAGNESIUM HYDROX 2400MG/30ML ORAL SUSPENSION 30 ML CUP PO PRN (18:02)
[2017-03-09] MEDS ORDERED: NICOTINE POLACRILEX 2 MG GUM BUC PRN (18:02)
--- NOTE | 2017-03-09 18:02 | HP ---
[facility] Rehab Assess/Revision - Admission History Admitted to Rehab from: [facility] [place] Date of Admission to Rehab: 03/09/17 - Findings Detox History & Physical reviewed: Yes Concur with findings: Yes Comments/Additional Findings: transferred from detox to rehab as per protocol
--- NOTE | 2017-03-09 18:03 | HP ---
Inpatient Rehab Admission - Initial Determination Are CD services needed?: Yes Free of communicable disease: Yes Not in need of hospitalization: Yes - Rehab Admission Criteria Previous failed treatment: Yes Poor recovery environment: Yes Comorbidities: Yes Lacks judgement: No Patient is meeting Inpatient Rehab admission criteria:: Yes
[2017-03-09 20:05] VITALS: BMI 28.1
[2017-03-09] MEDS: THIAMINE HCL 100 MG TABLET (FP) PO SCH (21:50)
[2017-03-10] MEDS: NICOTINE 14 MG/24 HOURS TOPICAL PATCH TD PRN (10:23)
[2017-03-10] MEDS: PRENATAL VITAMINS W/ FOLIC ACID TABLET (FP) PO SCH (10:24)
--- NOTE | 2017-03-10 11:48 | HP ---
Psychiatrist Admission - Data Date of interview: 03/10/17 Admission source: 6N Identifying data: This is the first 5n inpatient rehabilitaiton admission for this 66 year old , retired male father of 3, [facility] the [facility], supported on social security Medical History: GERD,Hep C, smokes cigarettes 1/2 PPD. Psychiatric History: Patient denies. Physical/Sexual Abuse/Trauma History: Patient denies. Vital Signs: Vital Signs - 24 hr 03/09/17 03/10/17 03/10/17 23:25 00:52 06:59 Temperature 97.3 F L 97.0 F L Pulse Rate 76 73 Respiratory 18 18 20 Rate Blood Pressure 131/73 143/78 Allergies/Adverse Reactions: Allergies Allergy/AdvReac Type Severity Reaction Status Date / Time No Known Drug Allergies Allergy Verified 03/03/17 17:15 Date of last physical exam: 03/03/17 Concur with the findings of this exam: Yes - Substance Abuse/Tx History Hx Alcohol Use: No Hx Substance Use: Yes Substance Use Type: Heroin (reports 10 gabs daily over the last 30 years ) Hx Substance Use Treatment: No (this is the first rehabilitaiton treatment.) Mental Status Exam - Mental Status Exam Alert and Oriented to: Time, Place, Person Cognitive Function: Good Patient Appearance: Well Groomed Mood: Hopeful Affect: Appropriate, Mood Congruent Patient Behavior: Appropriate, Cooperative Speech Pattern: Clear, Appropriate Voice Loudness: Normal Thought Process: Intact, Goal Oriented Thought Disorder: Not Present Hallucinations: Denies Suicidal Ideation: Denies Homicidal Ideation: Denies Insight/Judgement: Fair Sleep: Fair Appetite: Fair Muscle strength/Tone: Normal Gait/Station: Normal Psychiatric Findings - Problem List ([place] 1, 2,3) (1) Opioid dependence Current Visit: Yes Status: Acute (2) Nicotine dependence Current Visit: No Status: Chronic Qualifiers: Nicotine product type: cigarettes Substance use status: in withdrawal Qualified Code(s): F17.213 - Nicotine dependence, cigarettes, with withdrawal - Initial Treatment Plan Initial Treatment Plan: will monitor progress as needed.
[2017-03-10] MEDS: THIAMINE HCL 100 MG TABLET (FP) PO SCH (21:36)
[2017-03-11] MEDS: PRENATAL VITAMINS W/ FOLIC ACID TABLET (FP) PO SCH (11:00)
[2017-03-11] MEDS: NICOTINE 14 MG/24 HOURS TOPICAL PATCH TD PRN (11:12)
[2017-03-11] MEDS: THIAMINE HCL 100 MG TABLET (FP) PO SCH (21:34)
[2017-03-11] MEDS: ACETAMINOPHEN 325 MG TABLET (FP) PO PRN (21:34)
[2017-03-12] MEDS: PRENATAL VITAMINS W/ FOLIC ACID TABLET (FP) PO SCH (10:12)
[2017-03-12] MEDS: NICOTINE 14 MG/24 HOURS TOPICAL PATCH TD PRN (10:12)
[2017-03-12] MEDS: THIAMINE HCL 100 MG TABLET (FP) PO SCH (21:30)
[2017-03-13] MEDS: ACETAMINOPHEN 325 MG TABLET (FP) PO PRN (06:25)
[2017-03-13] MEDS: PRENATAL VITAMINS W/ FOLIC ACID TABLET (FP) PO SCH (10:17)
[2017-03-13] MEDS: NICOTINE 14 MG/24 HOURS TOPICAL PATCH TD PRN (10:17)
[2017-03-13] MEDS: THIAMINE HCL 100 MG TABLET (FP) PO SCH (21:32)
[2017-03-14] MEDS: NICOTINE 14 MG/24 HOURS TOPICAL PATCH TD PRN (09:47)
[2017-03-14] MEDS: PRENATAL VITAMINS W/ FOLIC ACID TABLET (FP) PO SCH (09:48)
[2017-03-14] MEDS: THIAMINE HCL 100 MG TABLET (FP) PO SCH (21:41)
[2017-03-14] MEDS: MAG HYDROX/AL HYDROX/SIMETH 30 ML UNIT-DOSE CUP PO PRN (21:42)
[2017-03-15] MEDS: PRENATAL VITAMINS W/ FOLIC ACID TABLET (FP) PO SCH (10:01)
[2017-03-15] MEDS: THIAMINE HCL 100 MG TABLET (FP) PO SCH (21:31)
[2017-03-15] MEDS: MAG HYDROX/AL HYDROX/SIMETH 30 ML UNIT-DOSE CUP PO PRN (21:32)
[2017-03-15] MEDS: ACETAMINOPHEN 325 MG TABLET (FP) PO PRN (21:32)
[2017-03-16] MEDS: PRENATAL VITAMINS W/ FOLIC ACID TABLET (FP) PO SCH (10:26)
[2017-03-16] MEDS: NICOTINE 14 MG/24 HOURS TOPICAL PATCH TD PRN (10:26)
[2017-03-16] MEDS: THIAMINE HCL 100 MG TABLET (FP) PO SCH (21:46)
[2017-03-17] MEDS: NICOTINE 14 MG/24 HOURS TOPICAL PATCH TD PRN (10:06)
[2017-03-17] MEDS: PRENATAL VITAMINS W/ FOLIC ACID TABLET (FP) PO SCH (10:06)
[2017-03-17] MEDS: THIAMINE HCL 100 MG TABLET (FP) PO SCH (21:39)
[2017-03-18] MEDS: NICOTINE 14 MG/24 HOURS TOPICAL PATCH TD PRN (10:16)
[2017-03-18] MEDS: PRENATAL VITAMINS W/ FOLIC ACID TABLET (FP) PO SCH (10:16)
[2017-03-18] MEDS: THIAMINE HCL 100 MG TABLET (FP) PO SCH (21:49)
[2017-03-18] MEDS: MAG HYDROX/AL HYDROX/SIMETH 30 ML UNIT-DOSE CUP PO PRN (21:50)
[2017-03-19] MEDS: NICOTINE 14 MG/24 HOURS TOPICAL PATCH TD PRN (10:16)
[2017-03-19] MEDS: PRENATAL VITAMINS W/ FOLIC ACID TABLET (FP) PO SCH (10:16)
--- NOTE | 2017-03-19 11:12 | PN ---
Psychiatric Progress Note Vital Signs: Vital Signs Period Temp Pulse Resp BP Sys/Walker Pulse Ox Last 24 Hr 98.3 F 88 17-18 134/78 Date of Session: 03/19/17 Chief Complaint:: "insomnia" HPI: Patient addressing alcohol, nicotine dependence. ROS: WNL Current Medications: Active Medications Generic Name Dose Route Start Last Admin Trade Name Freq PRN Reason Stop Dose Admin Acetaminophen 650 mg 03/09/17 18:02 03/15/17 21:32 Tylenol - PO 650 mg Q4H PRN Administration FEVER OR PAIN Al Hydroxide/Mg Hydroxide 30 ml 03/09/17 18:02 03/18/17 21:50 Mylanta Oral Suspension - PO 30 ml Q6H PRN Administration DYSPEPSIA Eucalyptus/Menthol/Phenol/Sorbitol 1 each 03/09/17 18:02 Cepastat Lozenge - MM Q4H PRN SORE THROAT Guaifenesin 10 ml 03/09/17 18:02 Robitussin Dm - PO Q6H PRN COUGH Ibuprofen 400 mg 03/09/17 18:02 Motrin - PO Q6H PRN PAIN Loperamide HCl 4 mg 03/09/17 18:02 Imodium - PO Q6H PRN DIARRHEA Magnesium Citrate 300 ml 03/09/17 18:02 Citroma - PO Q48H PRN CONSTIPATION Magnesium Hydroxide 30 ml 03/09/17 18:02 Milk Of Magnesia - PO DAILY PRN CONSTIPATION Nicotine 14 mg 03/09/17 18:02 03/19/17 10:16 Nicoderm Patch - TD 14 mg DAILY PRN Administration WITHDRAWAL(CONT SUBST) Nicotine Polacrilex 2 mg 03/09/17 18:02 03/10/17 06:24 Nicorette Gum - BUC 2 mg Q2H PRN Administration NICOTINE REPLACEMENT RX Multivit/Folic Acid/Iron 1 tab 03/10/17 10:00 03/19/17 10:16 Vitamins (Sjr) - PO 1 tab DAILY NESTOR Administration Pseudoephedrine/Triprolidine 1 combo 03/09/17 18:02 Actifed - PO TID PRN NASAL CONGESTION Thiamine HCl 100 mg 03/09/17 22:00 03/18/17 21:49 Vitamin B1 - PO 100 mg HS NESTOR Administration Current Side Effect: No Lab tests ordered: No Lab tests reviewed: Yes Provider note:: Patient was seen today, he generally adjusted well to the unit, he c/o insomnia, reports that Benadryl was working well in the past, will add medications, continue to monitor progress. Total face to face time:: 15 Mental Status Exam - Mental Status Exam Alert and Oriented to: Time, Place, Person Cognitive Function: Grossly Intact Patient Appearance: Well Groomed Mood: Hopeful Affect: Appropriate, Mood Congruent Patient Behavior: Appropriate, Cooperative Speech Pattern: Clear, Appropriate Voice Loudness: Normal Thought Process: Intact, Goal Oriented Thought Disorder: Not Present Hallucinations: Denies Suicidal Ideation: Denies Homicidal Ideation: Denies Insight/Judgement: Fair Sleep: Fair Appetite: Fair Muscle strength/Tone: Normal Gait/Station: Normal Psychiatric Treatment Plan - Problem List (1) Opioid dependence Current Visit: Yes (2) Nicotine dependence Current Visit: No Qualifiers: Nicotine product type: cigarettes Substance use status: in withdrawal Qualified Code(s): F17.213 - Nicotine dependence, cigarettes, with withdrawal
[2017-03-19] MEDS: diphenhydrAMINE HCL 50 MG CAPSULE PO PRN (21:43)
[2017-03-19] MEDS: THIAMINE HCL 100 MG TABLET (FP) PO SCH (21:43)
[2017-03-20] MEDS: PRENATAL VITAMINS W/ FOLIC ACID TABLET (FP) PO SCH (10:31)
[2017-03-20] MEDS: diphenhydrAMINE HCL 50 MG CAPSULE PO PRN (21:39)
[2017-03-20] MEDS: THIAMINE HCL 100 MG TABLET (FP) PO SCH (21:39)
[2017-03-21] MEDS: ACETAMINOPHEN 325 MG TABLET (FP) PO PRN (10:03)
[2017-03-21] MEDS: PRENATAL VITAMINS W/ FOLIC ACID TABLET (FP) PO SCH (10:04)
[2017-03-21] MEDS: THIAMINE HCL 100 MG TABLET (FP) PO SCH (21:37)
[2017-03-21] MEDS: diphenhydrAMINE HCL 50 MG CAPSULE PO PRN (21:38)
[2017-03-22 07:23] VITALS: BP 149/83; PULSE 88; TEMP 98.1
[2017-03-22] MEDS: PRENATAL VITAMINS W/ FOLIC ACID TABLET (FP) PO SCH (09:07)
--- NOTE | 2017-03-22 10:51 | PN ---
Psychiatric Progress Note Vital Signs: Vital Signs Period Temp Pulse Resp BP Sys/Walker Pulse Ox Last 24 Hr 98.1 F 88 18-20 149/83 Date of Session: 03/22/17 Chief Complaint:: discharge visit HPI: patient has addressed opioid, nicotine dependence. Current Medications: Active Medications Generic Name Dose Route Start Last Admin Trade Name Freq PRN Reason Stop Dose Admin Acetaminophen 650 mg 03/09/17 18:02 03/21/17 10:03 Tylenol - PO 650 mg Q4H PRN Administration FEVER OR PAIN Al Hydroxide/Mg Hydroxide 30 ml 03/09/17 18:02 03/18/17 21:50 Mylanta Oral Suspension - PO 30 ml Q6H PRN Administration DYSPEPSIA Diphenhydramine HCl 50 mg 03/19/17 11:17 03/21/17 21:38 Benadryl - PO 50 mg HS PRN Administration INSOMNIA Eucalyptus/Menthol/Phenol/Sorbitol 1 each 03/09/17 18:02 Cepastat Lozenge - MM Q4H PRN SORE THROAT Guaifenesin 10 ml 03/09/17 18:02 03/20/17 10:31 Robitussin Dm - PO 10 ml Q6H PRN Administration COUGH Ibuprofen 400 mg 03/09/17 18:02 Motrin - PO Q6H PRN PAIN Loperamide HCl 4 mg 03/09/17 18:02 03/22/17 09:06 Imodium - PO 4 mg Q6H PRN Administration DIARRHEA Magnesium Citrate 300 ml 03/09/17 18:02 Citroma - PO Q48H PRN CONSTIPATION Magnesium Hydroxide 30 ml 03/09/17 18:02 Milk Of Magnesia - PO DAILY PRN CONSTIPATION Nicotine 14 mg 03/09/17 18:02 03/19/17 10:16 Nicoderm Patch - TD 14 mg DAILY PRN Administration WITHDRAWAL(CONT SUBST) Nicotine Polacrilex 2 mg 03/09/17 18:02 03/10/17 06:24 Nicorette Gum - BUC 2 mg Q2H PRN Administration NICOTINE REPLACEMENT RX Multivit/Folic Acid/Iron 1 tab 03/10/17 10:00 03/22/17 09:07 Vitamins (Sjr) - PO 1 tab DAILY NESTOR Administration Pseudoephedrine/Triprolidine 1 combo 03/09/17 18:02 Actifed - PO TID PRN NASAL CONGESTION Thiamine HCl 100 mg 03/09/17 22:00 03/21/17 21:37 Vitamin B1 - PO 100 mg HS NESTOR Administration Provider note:: Patient has completed today his treatment and met his goals, will continue to address hiss issues at [facility].He gained insights into his addiction, understands the negative impact and verbalized his motivations to continue maintain abstinence and be adherent to every aspects of his aftercare plans, patient is stable for discharge today. Total face to face time:: 15 Mental Status Exam - Mental Status Exam Alert and Oriented to: Time, Place, Person Cognitive Function: Good Patient Appearance: Well Groomed Mood: Hopeful Affect: Appropriate, Mood Congruent Patient Behavior: Appropriate, Cooperative Speech Pattern: Appropriate Voice Loudness: Normal Thought Process: Goal Oriented Thought Disorder: Not Present Hallucinations: Denies Suicidal Ideation: Denies Homicidal Ideation: Denies Insight/Judgement: Fair Sleep: Fair Appetite: Fair Muscle strength/Tone: Normal Gait/Station: Normal Psychiatric Treatment Plan - Problem List (1) Opioid dependence Current Visit: Yes (2) Nicotine dependence Current Visit: No Qualifiers: Nicotine product type: cigarettes Substance use status: in withdrawal Qualified Code(s): F17.213 - Nicotine dependence, cigarettes, with withdrawal
== END 2017-03-22 10:40 | disposition home or self-care (01) | DRG 772 ==
LOC: YASAS 17:28 → UNDOADMIN 17:29 → Y5N 17:29 → UNDODISIN 03-22 10:40
PROVIDERS: ADMIT Psychiatry & Neurology Psychiatry; ATTEND Psychiatry & Neurology Psychiatry
PROC: HZ42ZZZ Group Counseling for Substance Abuse Treatment, Cognitive-Behavioral (ICD-10-PCS; principal; 2017-03-09)
DX: F11.20 Opioid dependence, uncomplicated (principal); F17.213 Nicotine dependence, cigarettes, with withdrawal

== ENCOUNTER 2017-08-20 12:33 | Inpatient (IN) | payer OTHER ==
[2017-08-20 13:07] VITALS: BMI 29.0
--- NOTE | 2017-08-20 16:38 | HP ---
COWS - Scale Resting Pulse: 0= [place] 80 or Below Sweatin=Flushed/Facial Moisture Restless Observation: 1= Difficult to Sit Still Pupil Size: 2= Moderately Dilated Bone or Joint Aches: 0= None Runny Nose/ Eye Tearin= Runny Nose/Eyes GI Upset > 30mins: 1= Stomach Cramp Tremor Observation: 2= Slight Tremor Visible Yawning Observation: 1= 1-2x During Session Anxiety or Irritability: 1=Feels Anxious/Irritable Goose Flesh Skin: 0=Smooth Skin COWS Score: 12 Admission ROS S - [facility] Chief Complaint: Here for heroin withdrawal and wanting detox. Allergies/Adverse Reactions: Allergies Allergy/AdvReac Type Severity Reaction Status Date / Time No Known Drug Allergies Allergy Verified 08/20/17 16:18 History of Present Illness: Heroin use since age 26. Sniffs approx 15 bags a day. Has used street methadone in past, but not often. Last use about 4-5 days ago. Denies alcohol cocaine, pill use. Denies significant medical hx. Wants to detox because of tired of social and financial lifestyle. Exam Limitations: No Limitations - Ebola screening Have you traveled outside of the country in the last 21 days: No (N) Have you had contact with anyone from an Ebola affected area: No Have you been sick,other than usual withdrawal symptoms: No Do you have a fever: No - Review of Systems Constitutional: Diaphoresis, Changes in sleep (Needs to use heroin to fall asleep.) EENT: reports: Blurred Vision (Wears corredtive lenses), Dental Problems (Upper and lower dentures. Denies difficulty chewing/swallowing.) Respiratory: reports: No Symptoms reported Cardiac: reports: No Symptoms Reported GI: reports: Constipated (Occassionaly. Usually goes daily.), Other (Heart burn. usually takes TUMS.) Musculoskeletal: reports: No Symptoms Reported Integumentary: reports: Dryness (Dryness in inguinal fold and on buttocks.) Neuro: reports: Tremors (Tremors only when withdrawing.) Endocrine: reports: No Symptoms Reported Hematology: reports: No Symptoms Reported Psychiatric: reports: No Sypmtoms Reported Patient History - Patient Medical History Hx Anemia: No Hx Asthma: No Hx Chronic Obstructive Pulmonary Disease (COPD): No Hx Cancer: No Hx Cardiac Disorders: No Hx Congestive Heart Failure: No Hx Hypertension: No Hx Hypercholesterolemia: No Hx Pacemaker: No HX Cerebrovascular Accident: No Hx Seizures: No Hx Dementia: No Hx Diabetes: No Hx Gastrointestinal Disorders: No Hx Liver Disease: No Hx Genitourinary Disorders: No Hx Sexually Transmitted Disorders: No Hx Renal Disease (ESRD): No Hx Thyroid Disease: No Hx Human Immunodeficiency Virus (HIV): No Hx Hepatitis C: Yes Hx Depression: No Hx Suicide Attempt: No Hx Bipolar Disorder: No Hx Schizophrenia: No - Patient Surgical History Past Surgical History: No Hx Neurologic Surgery: No Hx Cataract Extraction: No Hx Cardiac Surgery: No Hx Lung Surgery: No Hx Breast Surgery: No Hx Breast Biopsy: No Hx Abdominal Surgery: No Hx Appendectomy: No Hx Cholecystectomy: No Hx Genitourinary Surgery: No Hx Section: No Hx Orthopedic Surgery: No Anesthesia Reaction: No - PPD History Previous Implant?: Yes (08/01/17 at [facility]) Documented Results: Negative w/o proof Implanted On Prior [facility] Admission?: Yes Date: 06/07/16 Results: Negative PPD to be Administered?: Yes - Smoking Cessation Smoking history: Current every day smoker Have you smoked in the past 12 months: Yes Aproximately how many cigarettes per day: 25 Cigars Per Day: 0 Hx Chewing Tobacco Use: No Initiated information on smoking cessation: Yes 'Breaking Loose' booklet given: 08/20/17 - Substance & Tx. History Hx Alcohol Use: No Hx Substance Use: Yes Substance Use Type: Heroin Hx Substance Use Treatment: Yes ([facility]x, out-patient drug free program) - Substances Abused Heroin Route: Inhalation Frequency: Daily Amount used: 15 Bags Daily Age of first use: 26 Date of Last Use: 08/20/17 (7 am) Family Disease History - Family Disease History Family Disease History: Heart Disease: Mother ( FROM CAD), Other: Father ( NO CONTACT) Admission Physical Exam BHS - Vital Signs Vital Signs: Vital Signs - 24 hr 08/20/17 12:56 Temperature 97.5 F L Pulse Rate 69 Respiratory 18 Rate Blood Pressure 157/82 - Physical General Appearance: Yes: Nourished, Tremorous, Sweating, Anxious HEENTM: Yes: EOMI, Hearing grossly Normal, Normocephalic, Normal Voice, [place] ( Pupils at 4 mm), Nasal Congestion Respiratory: Yes: Lungs Clear, Normal Breath Sounds, No Respiratory Distress Neck: Yes: No masses,lesions,Nodules, Supple Breast: Yes: Breast Exam Deferred Cardiology: Yes: Regular Rhythm, Regular Rate, S1, S2 Abdominal: Yes: Normal Bowel Sounds, Non Tender, Soft, Increased Bowel Sounds Genitourinary: Yes: Within Normal Limits Back: Yes: Normal Inspection Musculoskeletal: Yes: full range of Motion, Gait Steady, Pelvis Stable Extremities: Yes: Normal Capillary Refill, Normal Inspection, Non-Tender, Tremors (hands) Neurological: Yes: superintendent recreation II-XII NML intact, Fully Oriented, Motor Strength 5/5, Normal Response Integumentary: Yes: Normal Color, Dry (Skin dry w/ decreased turgor. Decreased moisture mucous membranes.), Other (Scratch lesions on buttocks. Skin intact w/ o exudate.) Lymphatic: Yes: Within Normal Limits - Diagnostic (1) Dry skin Current Visit: Yes Status: Acute (2) Opioid dependence with withdrawal Current Visit: Yes Status: Acute (3) Insomnia Current Visit: Yes Status: Chronic Qualifiers: Insomnia type: unspecified Qualified Code(s): G47.00 - Insomnia, unspecified (4) Dermatitis Current Visit: Yes Status: Chronic (5) Nicotine dependence Current Visit: Yes Status: Chronic Qualifiers: Nicotine product type: cigarettes Substance use status: in withdrawal Qualified Code(s): F17.213 - Nicotine dependence, cigarettes, with withdrawal Cleared for Admission [facility] - Detox or Rehab [facility] Level of Care: Medically Managed Detox Regimen/Protocol: Methadone [facility] Breath Alcohol Content Breath Alcohol Content: 0 Urine Drug Screen - Results Drug Screen Negative: No Urine Drug Screen Results: OPI-Opiates, MTD-Methadone, OXY-Oxycodone
[2017-08-20] MEDS ORDERED: hydrOXYzine PAMOATE 50 MG CAPSULE (FP) PO PRN (16:58)
[2017-08-20] MEDS ORDERED: NICOTINE POLACRILEX 4 MG GUM BC PRN (16:58)
[2017-08-20] MEDS ORDERED: P-EPHED 60MG/TRIPROLIDI 2.5MG TABLET PO PRN (16:58)
[2017-08-20] MEDS ORDERED: MAGNESIUM CITRATE 300 ML BOTTLE PO PRN (16:58)
[2017-08-20] MEDS ORDERED: ACETAMINOPHEN 325 MG TABLET (FP) PO PRN (16:58)
[2017-08-20] MEDS ORDERED: LOPERAMIDE HCL 2 MG CAPSULE PO PRN (16:58)
[2017-08-20] MEDS ORDERED: IBUPROFEN 400 MG TABLET (FP) PO PRN (16:58)
[2017-08-20] MEDS ORDERED: MAGNESIUM HYDROX 2400MG/30ML ORAL SUSPENSION 30 ML CUP PO PRN (16:58)
[2017-08-20] MEDS ORDERED: guaiFENesin/D-METHORPHAN HB 10 ML UNIT-DOSE CUPS PO PRN (16:58)
[2017-08-20] MEDS ORDERED: MENTHOL/PHENOL 1 EACH UD MM PRN (16:58)
[2017-08-20] MEDS ORDERED: METHADONE HCL 10 MG TABLET (FOR DETOX USE ONLY) PO ONE ×2 (17:45→23:00)
[2017-08-20] MEDS ORDERED: METHADONE HCL 10 MG TABLET (FOR DETOX USE ONLY) ONE (20:58)
[2017-08-20] MEDS: diazePAM 5 MG TABLET PO PRN (21:16)
[2017-08-20] MEDS ORDERED: MELATONIN 5 MG TABLETS PO PRN (22:00)
[2017-08-20] MEDS: THIAMINE HCL 100 MG TABLET (FP) PO SCH (22:16)
[2017-08-20] MEDS: CLOTRIMAZOLE/BETAMET DIPROP TOPICAL CREAM 45 GM TUBE TP SCH (22:17)
[2017-08-21] MEDS ORDERED: METHADONE HCL 10 MG TABLET (FOR DETOX USE ONLY) PO ONE (10:00)
[2017-08-21] MEDS: PRENATAL VITAMINS W/ FOLIC ACID TABLET (FP) PO SCH (10:11)
[2017-08-21] MEDS: CLOTRIMAZOLE/BETAMET DIPROP TOPICAL CREAM 45 GM TUBE TP SCH ×2 (10:12→22:19)
[2017-08-21] MEDS: NICOTINE 21 MG/24 HOURS TOPICAL PATCH TD SCH (10:12)
[2017-08-21 10:47] LABS: HEMATOCRIT 41.3 % (35.4-49); HEMOGLOBIN 13.6 GM/dL (11.7-16.9); MCH 27.8 pg (25.7-33.7); MEAN CELL VOLUME 84.4 fl (80-96); MEAN PLT VOLUME 7.7 fl (7.5-11.1); PLATELET COUNT 231 K/MM3 (134-434); RBC 4.89 M/mm3 (4.00-5.60); WHITE BLOOD COUNT 8.3 K/mm3 (4.0-10.0)
[2017-08-21 11:00] LABS: ALBUMIN 3.5 g/dl (3.4-5.0); ANION GAP 4 (8-16); BILIRUBIN,TOTAL 0.3 mg/dL (0.2-1.0); BLOOD UREA NITROGEN 22 mg/dL (7-18); CALCIUM 8.2 mg/dL (8.5-10.1); CHLORIDE 104 mmol/L (98-107); CO2 30 mmol/L (21-32); GLUCOSE,RANDOM 78 mg/dL (74-106); POTASSIUM 4.9 mmol/L (3.5-5.1); SGOT/AST 22 U/L (15-37); SGPT/ALT 29 U/L (12-78); SODIUM 138 mmol/L (136-145); TOT PROT 8.3 g/dl (6.4-8.2)
[2017-08-21 11:01] LABS: ALK PHOS 54 U/L (45-117)
--- NOTE | 2017-08-21 14:49 | EKG ---
Test Reason : Blood Pressure : / mmHG Vent. Rate : 063 BPM Atrial Rate : 063 BPM P-R Int : 194 ms QRS Dur : 074 ms QT Int : 400 ms P-R-T Axes : 057 004 061 degrees QTc Int : 409 ms NORMAL SINUS RHYTHM NORMAL ECG WHEN COMPARED WITH ECG OF 03-MAR-2017 19:32, NO SIGNIFICANT CHANGE WAS FOUND Confirmed by MD Ulloa Daniel ([id number]) on 08/21/2017 2:49:05 PM Referred By: Confirmed By:Daniel Ulloa MD
--- NOTE | 2017-08-21 15:01 | CONSULT ---
[facility] Psychiatric Consult - Data Date of interview: 08/21/17 Admission source: [facility] Identifying data: Readmission to [facility] for this 67 y/o male seeking detox treatment on for heroin dependence.Patient is ,a father of three,homeless (snf),unemployed and supported on Public Assistance. Substance Abuse History: Confirmed by patient in my interview.Smoking history: Current every day smoker. Have you smoked in the past 12 months: Yes. Aproximately how many cigarettes per day: 25. Cigars Per Day: 0. Hx Chewing Tobacco Use: No. Initiated information on smoking cessation: Yes. 'Breaking Loose' booklet given: 08/20/17. - Substance & Tx. History. Hx Alcohol Use: No. Hx Substance Use: Yes. Substance Use Type: Heroin. Hx Substance Use Treatment: Yes (Detx, out-patient drug free program). - Substances Abused. Heroin. Route: Inhalation. Frequency: Daily. Amount used: 15 Bags Daily. Age of first use: 26. Date of Last Use: 08/20/17 (7 am) Medical History: Hepatitis C,GERD and obesity. Psychiatric History: Patient denies. Physical/Sexual Abuse/Trauma History: No history. Additional Comment: Urine Drug Screen Results: OPI-Opiates, MTD-Methadone, OXY- Oxycodone.Noted. Mental Status Exam - Mental Status Exam Alert and Oriented to: Time, Place, Person Cognitive Function: Good Patient Appearance: Well Groomed (short stature,overweight) Mood: Withdrawn, Irritable Affect: Mood Congruent Patient Behavior: Fatigued, Cooperative Speech Pattern: Clear, Appropriate Voice Loudness: Normal Thought Process: Intact, Goal Oriented Thought Disorder: Not Present Hallucinations: Denies Suicidal Ideation: Denies Homicidal Ideation: Denies Insight/Judgement: Poor Sleep: Poorly, Difficulty falling asleep Appetite: Good Muscle strength/Tone: Normal Gait/Station: Normal Psychiatric Findings - Problem List ([place] 1, 2,3) (1) Opioid dependence with withdrawal Current Visit: Yes Status: Acute (2) Nicotine dependence Current Visit: Yes Status: Acute Qualifiers: Nicotine product type: cigarettes Substance use status: in withdrawal Qualified Code(s): F17.213 - Nicotine dependence, cigarettes, with withdrawal (3) Insomnia Current Visit: Yes Status: Acute Qualifiers: Insomnia type: unspecified Qualified Code(s): G47.00 - Insomnia, unspecified - Initial Treatment Plan Initial Treatment Plan: Psychoeducation.Sleep hygiene.Detoxification.Ambien 5 mg po hs prn.patient is made aware of the risk for parasomnias.He agrees to this careplan.Observation.
--- NOTE | 2017-08-21 16:28 | PN ---
BHS COWS - Scale Resting Pulse: 0= [place] 80 or Below Sweatin= Chills/Flushing Restless Observation: 1= Difficult to Sit Still Pupil Size: 0= Normal to Room Light Bone or Joint Aches: 0= None Runny Nose/ Eye Tearin= Runny Nose/Eyes GI Upset > 30mins: 1= Stomach Cramp Tremor Observation of Outstretched Hands: 0= None Yawning Observation: 2= >3x During Session Anxiety or Irritability: 2=Irritable/Anxious Goose Flesh Skin: 3=Piloerection COWS Score: 12 BHS Progress Note (SOAP) Subjective: Sweating, H/A, Anxious, Chills, Sweating. Objective: PATIENT A & O X 3, OBSERVED AMBULATING ON UNIT. NO ACUTE DISTRESS. 08/21/17 16:26 Vital Signs Temperature 98.2 F 08/21/17 13:41 Pulse Rate 66 08/21/17 13:41 Respiratory Rate 18 08/21/17 13:41 Blood Pressure 134/80 08/21/17 13:41 O2 Sat by Pulse Oximetry (%) Laboratory Tests 08/21/17 08/21/17 08/21/17 07:55 07:55 07:55 WBC 8.3 RBC 4.89 Hgb 13.6 Hct 41.3 MCV 84.4 MCH 27.8 MCHC 33.0 RDW 16.0 H Plt Count 231 MPV 7.7 Sodium 138 Potassium 4.9 Chloride 104 Carbon Dioxide 30 Anion Gap 4 L BUN 22 H Creatinine 1.0 Creat Clearance w eGFR > 60 Random Glucose 78 Calcium 8.2 L Total Bilirubin 0.3 D AST 22 ALT 29 Alkaline Phosphatase 54 Total Protein 8.3 H Albumin 3.5 RPR Titer HIV 1&2 Antibody Screen Negative HIV P24 Antigen Negative 08/21/17 07:55 WBC RBC Hgb Hct MCV MCH MCHC RDW Plt Count MPV Sodium Potassium Chloride Carbon Dioxide Anion Gap BUN Creatinine Creat Clearance w eGFR Random Glucose Calcium Total Bilirubin AST ALT Alkaline Phosphatase Total Protein Albumin RPR Titer Nonreactive HIV 1&2 Antibody Screen HIV P24 Antigen LABS NOTED. UA RESULTS PENDING. 08/21/17 16:27 Assessment: 08/21/17 16:27 WITHDRAWAL SYMPTOMS. Plan: CONTINUE DETOX.
[2017-08-21 21:35] LABS: URINE APPEARANCE CLEAR; URINE BILIRUBIN NEGATIVE (<2.0 mg/dL); URINE COLOR LTYELLOW; URINE GLUCOSE (UA) NEGATIVE (NEGATIVE); URINE KETONE NEGATIVE (NEGATIVE); URINE LEUK ESTERASE NEGATIVE (NEGATIVE); URINE NITRITE NEGATIVE (NEGATIVE); URINE PROTEIN NEGATIVE (NEGATIVE); URINE UROBILINOGEN NEGATIVE mg/dL (0.2-1.0)
[2017-08-21] MEDS: THIAMINE HCL 100 MG TABLET (FP) PO SCH (22:19)
[2017-08-21] MEDS: diazePAM 5 MG TABLET PO PRN (22:22)
[2017-08-22] MEDS ORDERED: METHADONE HCL 5 MG TABLET (FOR DETOX USE ONLY) PO ONE (10:00)
[2017-08-22] MEDS: PRENATAL VITAMINS W/ FOLIC ACID TABLET (FP) PO SCH (10:10)
[2017-08-22] MEDS: CLOTRIMAZOLE/BETAMET DIPROP TOPICAL CREAM 45 GM TUBE TP SCH ×2 (10:11→22:09)
[2017-08-22] MEDS: NICOTINE 21 MG/24 HOURS TOPICAL PATCH TD SCH (10:11)
[2017-08-22] MEDS: diazePAM 5 MG TABLET PO PRN ×2 (10:11→22:09)
--- NOTE | 2017-08-22 11:49 | PN ---
S COWS - Scale Resting Pulse: 0= [place] 80 or Below Sweatin= Beads of Sweat on Face Restless Observation: 3= Extraneous Movement Pupil Size: 2= Moderately Dilated Bone or Joint Aches: 1= Mild Discomfort Runny Nose/ Eye Tearin= None GI Upset > 30mins: 0= None Tremor Observation of Outstretched Hands: 2= Slight Tremor Visible Yawning Observation: 0= None Anxiety or Irritability: 2=Irritable/Anxious Goose Flesh Skin: 0=Smooth Skin COWS Score: 13 BHS Progress Note (SOAP) Subjective: ANXIETY,IRRITABILITY, JITTERY, SWEATS,INTERMITTENT SLEEP. Objective: 08/22/17 11:48 Vital Signs 08/22/17 08/22/17 06:09 09:42 Temperature 98.6 F 99.1 F Pulse Rate 59 L 76 Respiratory 18 18 Rate Blood Pressure 140/75 124/73 Laboratory Tests 08/21/17 08/21/17 08/21/17 07:55 07:55 07:55 WBC 8.3 RBC 4.89 Hgb 13.6 Hct 41.3 MCV 84.4 MCH 27.8 MCHC 33.0 RDW 16.0 H Plt Count 231 MPV 7.7 Sodium 138 Potassium 4.9 Chloride 104 Carbon Dioxide 30 Anion Gap 4 L BUN 22 H Creatinine 1.0 Creat Clearance w eGFR > 60 Random Glucose 78 Calcium 8.2 L Total Bilirubin 0.3 D AST 22 ALT 29 Alkaline Phosphatase 54 Total Protein 8.3 H Albumin 3.5 Urine Color Urine Appearance Urine pH Ur Specific [place] Urine Protein Urine Glucose (UA) Urine Ketones Urine Blood Urine Nitrite Urine Bilirubin Urine Urobilinogen Ur Leukocyte Esterase RPR Titer HIV 1&2 Antibody Screen Negative HIV P24 Antigen Negative 08/21/17 08/21/17 07:55 18:00 WBC RBC Hgb Hct MCV MCH MCHC RDW Plt Count MPV Sodium Potassium Chloride Carbon Dioxide Anion Gap BUN Creatinine Creat Clearance w eGFR Random Glucose Calcium Total Bilirubin AST ALT Alkaline Phosphatase Total Protein Albumin Urine Color Ltyellow Urine Appearance Clear Urine pH 7.0 D Ur Specific [place] 1.013 Urine Protein Negative Urine Glucose (UA) Negative Urine Ketones Negative Urine Blood Negative Urine Nitrite Negative Urine Bilirubin Negative Urine Urobilinogen Negative Ur Leukocyte Esterase Negative RPR Titer Nonreactive HIV 1&2 Antibody Screen HIV P24 Antigen Assessment: 08/22/17 11:48 WITHDRAWAL SX Plan: CONTINUE DETOX
[2017-08-22] MEDS: ZOLPIDEM TARTRATE 5 MG TABLET PO PRN (22:09)
[2017-08-22] MEDS: THIAMINE HCL 100 MG TABLET (FP) PO SCH (22:09)
[2017-08-23] MEDS: diazePAM 5 MG TABLET PO PRN (09:01)
[2017-08-23] MEDS ORDERED: METHADONE HCL 5 MG TABLET (FOR DETOX USE ONLY) PO ONE (10:00)
[2017-08-23] MEDS: PRENATAL VITAMINS W/ FOLIC ACID TABLET (FP) PO SCH (10:11)
[2017-08-23] MEDS: NICOTINE 21 MG/24 HOURS TOPICAL PATCH TD SCH (10:13)
[2017-08-23] MEDS: CLOTRIMAZOLE/BETAMET DIPROP TOPICAL CREAM 45 GM TUBE TP SCH ×2 (10:14→22:37)
--- NOTE | 2017-08-23 10:18 | PN ---
BHS Progress Note (SOAP) Subjective: DECREASED ANXIETY,TREMORS. OOB AMBULATING WITH STEADY GAIT. NAD. Objective: 08/23/17 10:17 Vital Signs 08/23/17 08/23/17 08/23/17 03:30 06:25 06:30 Temperature 97.3 F L Pulse Rate 71 Respiratory 18 18 18 Rate Blood Pressure 129/76 08/23/17 09:04 Temperature 96.9 F L Pulse Rate 70 Respiratory 18 Rate Blood Pressure 133/71 Laboratory Tests 08/21/17 08/21/17 08/21/17 07:55 07:55 07:55 WBC 8.3 RBC 4.89 Hgb 13.6 Hct 41.3 MCV 84.4 MCH 27.8 MCHC 33.0 RDW 16.0 H Plt Count 231 MPV 7.7 Sodium 138 Potassium 4.9 Chloride 104 Carbon Dioxide 30 Anion Gap 4 L BUN 22 H Creatinine 1.0 Creat Clearance w eGFR > 60 Random Glucose 78 Calcium 8.2 L Total Bilirubin 0.3 D AST 22 ALT 29 Alkaline Phosphatase 54 Total Protein 8.3 H Albumin 3.5 Urine Color Urine Appearance Urine pH Ur Specific [place] Urine Protein Urine Glucose (UA) Urine Ketones Urine Blood Urine Nitrite Urine Bilirubin Urine Urobilinogen Ur Leukocyte Esterase RPR Titer HIV 1&2 Antibody Screen Negative HIV P24 Antigen Negative 08/21/17 08/21/17 07:55 18:00 WBC RBC Hgb Hct MCV MCH MCHC RDW Plt Count MPV Sodium Potassium Chloride Carbon Dioxide Anion Gap BUN Creatinine Creat Clearance w eGFR Random Glucose Calcium Total Bilirubin AST ALT Alkaline Phosphatase Total Protein Albumin Urine Color Ltyellow Urine Appearance Clear Urine pH 7.0 D Ur Specific [place] 1.013 Urine Protein Negative Urine Glucose (UA) Negative Urine Ketones Negative Urine Blood Negative Urine Nitrite Negative Urine Bilirubin Negative Urine Urobilinogen Negative Ur Leukocyte Esterase Negative RPR Titer Nonreactive HIV 1&2 Antibody Screen HIV P24 Antigen Assessment: 08/23/17 10:18 WITHDRAWAL SX Plan: CONTINUE DETOX
[2017-08-23] MEDS: ZOLPIDEM TARTRATE 5 MG TABLET PO PRN (22:19)
[2017-08-23] MEDS: THIAMINE HCL 100 MG TABLET (FP) PO SCH (22:19)
[2017-08-23] MEDS: MAG HYDROX/AL HYDROX/SIMETH 30 ML UNIT-DOSE CUP PO PRN (23:25)
[2017-08-24] MEDS ORDERED: METHADONE HCL 10 MG TABLET (FOR DETOX USE ONLY) PO ONE (10:00)
[2017-08-24] MEDS: PRENATAL VITAMINS W/ FOLIC ACID TABLET (FP) PO SCH (10:27)
[2017-08-24] MEDS: CLOTRIMAZOLE/BETAMET DIPROP TOPICAL CREAM 45 GM TUBE TP SCH ×2 (10:27→22:18)
[2017-08-24] MEDS: NICOTINE 21 MG/24 HOURS TOPICAL PATCH TD SCH (10:27)
--- NOTE | 2017-08-24 11:22 | PN ---
BHS Progress Note (SOAP) Subjective: ANXIETY,SWEATS,FATIGUE, Objective: 08/24/17 11:21 Vital Signs 08/24/17 08/24/17 08/24/17 03:30 06:13 06:30 Temperature 96.9 F L Pulse Rate 66 Respiratory 18 18 18 Rate Blood Pressure 131/76 08/24/17 09:08 Temperature 97.0 F L Pulse Rate 77 Respiratory 18 Rate Blood Pressure 126/66 Laboratory Tests 08/21/17 08/21/17 08/21/17 07:55 07:55 07:55 WBC 8.3 RBC 4.89 Hgb 13.6 Hct 41.3 MCV 84.4 MCH 27.8 MCHC 33.0 RDW 16.0 H Plt Count 231 MPV 7.7 Sodium 138 Potassium 4.9 Chloride 104 Carbon Dioxide 30 Anion Gap 4 L BUN 22 H Creatinine 1.0 Creat Clearance w eGFR > 60 Random Glucose 78 Calcium 8.2 L Total Bilirubin 0.3 D AST 22 ALT 29 Alkaline Phosphatase 54 Total Protein 8.3 H Albumin 3.5 Urine Color Urine Appearance Urine pH Ur Specific [place] Urine Protein Urine Glucose (UA) Urine Ketones Urine Blood Urine Nitrite Urine Bilirubin Urine Urobilinogen Ur Leukocyte Esterase RPR Titer HIV 1&2 Antibody Screen Negative HIV P24 Antigen Negative 08/21/17 08/21/17 07:55 18:00 WBC RBC Hgb Hct MCV MCH MCHC RDW Plt Count MPV Sodium Potassium Chloride Carbon Dioxide Anion Gap BUN Creatinine Creat Clearance w eGFR Random Glucose Calcium Total Bilirubin AST ALT Alkaline Phosphatase Total Protein Albumin Urine Color Ltyellow Urine Appearance Clear Urine pH 7.0 D Ur Specific [place] 1.013 Urine Protein Negative Urine Glucose (UA) Negative Urine Ketones Negative Urine Blood Negative Urine Nitrite Negative Urine Bilirubin Negative Urine Urobilinogen Negative Ur Leukocyte Esterase Negative RPR Titer Nonreactive HIV 1&2 Antibody Screen HIV P24 Antigen Assessment: 08/24/17 11:21 WITHDRAWAL SX Plan: CONTINUE DETOX
[2017-08-24] MEDS: THIAMINE HCL 100 MG TABLET (FP) PO SCH (22:18)
[2017-08-24] MEDS: MAG HYDROX/AL HYDROX/SIMETH 30 ML UNIT-DOSE CUP PO PRN (22:18)
[2017-08-24] MEDS: ZOLPIDEM TARTRATE 5 MG TABLET PO PRN (22:18)
[2017-08-25] MEDS ORDERED: METHADONE HCL 5 MG TABLET (FOR DETOX USE ONLY) PO ONE (06:00)
[2017-08-25] MEDS: CLOTRIMAZOLE/BETAMET DIPROP TOPICAL CREAM 45 GM TUBE TP SCH (10:12)
[2017-08-25] MEDS: PRENATAL VITAMINS W/ FOLIC ACID TABLET (FP) PO SCH (10:12)
[2017-08-25] MEDS: NICOTINE 21 MG/24 HOURS TOPICAL PATCH TD SCH (10:13)
--- NOTE | 2017-08-25 10:39 | PN ---
BHS Progress Note (SOAP) Subjective: DETOX COMPLETED. ALERT O X 3. NAD. Objective: 08/25/17 10:39 Vital Signs 08/25/17 08/25/17 08/25/17 03:30 06:37 09:16 Temperature 97.4 F L 98.2 F Pulse Rate 72 104 H Respiratory 16 18 20 Rate Blood Pressure 114/70 121/71 Laboratory Tests 08/21/17 08/21/17 08/21/17 07:55 07:55 07:55 WBC 8.3 RBC 4.89 Hgb 13.6 Hct 41.3 MCV 84.4 MCH 27.8 MCHC 33.0 RDW 16.0 H Plt Count 231 MPV 7.7 Sodium 138 Potassium 4.9 Chloride 104 Carbon Dioxide 30 Anion Gap 4 L BUN 22 H Creatinine 1.0 Creat Clearance w eGFR > 60 Random Glucose 78 Calcium 8.2 L Total Bilirubin 0.3 D AST 22 ALT 29 Alkaline Phosphatase 54 Total Protein 8.3 H Albumin 3.5 Urine Color Urine Appearance Urine pH Ur Specific [place] Urine Protein Urine Glucose (UA) Urine Ketones Urine Blood Urine Nitrite Urine Bilirubin Urine Urobilinogen Ur Leukocyte Esterase RPR Titer HIV 1&2 Antibody Screen Negative HIV P24 Antigen Negative 08/21/17 08/21/17 07:55 18:00 WBC RBC Hgb Hct MCV MCH MCHC RDW Plt Count MPV Sodium Potassium Chloride Carbon Dioxide Anion Gap BUN Creatinine Creat Clearance w eGFR Random Glucose Calcium Total Bilirubin AST ALT Alkaline Phosphatase Total Protein Albumin Urine Color Ltyellow Urine Appearance Clear Urine pH 7.0 D Ur Specific [place] 1.013 Urine Protein Negative Urine Glucose (UA) Negative Urine Ketones Negative Urine Blood Negative Urine Nitrite Negative Urine Bilirubin Negative Urine Urobilinogen Negative Ur Leukocyte Esterase Negative RPR Titer Nonreactive HIV 1&2 Antibody Screen HIV P24 Antigen Assessment: 08/25/17 10:39 MEDICALLY STABLE Plan: D/C PT TODAY
--- NOTE | 2017-08-25 10:42 | DS ---
[facility] Detox Discharge Summary Admission Date: 08/20/17 Discharge Date: 08/25/17 - History Present History: Opioid Dependence Additional Comments: DETOX COMPLETED. ALERT O X 3. PT REPORTS HIS PRIMARY CARE IS AT [facility] IN [place], [place]. Pertinent Past History: PLEASE SEE DX BELOW - Physical Exam Results Vital Signs: Vital Signs Temperature 98.2 F 08/25/17 09:16 Pulse Rate 104 H 08/25/17 09:16 Respiratory Rate 20 08/25/17 09:16 Blood Pressure 121/71 08/25/17 09:16 O2 Sat by Pulse Oximetry (%) Pertinent Admission Physical Exam Findings: WITHDRAWAL SX Laboratory Tests 08/21/17 08/21/17 08/21/17 07:55 07:55 07:55 WBC 8.3 RBC 4.89 Hgb 13.6 Hct 41.3 MCV 84.4 MCH 27.8 MCHC 33.0 RDW 16.0 H Plt Count 231 MPV 7.7 Sodium 138 Potassium 4.9 Chloride 104 Carbon Dioxide 30 Anion Gap 4 L BUN 22 H Creatinine 1.0 Creat Clearance w eGFR > 60 Random Glucose 78 Calcium 8.2 L Total Bilirubin 0.3 D AST 22 ALT 29 Alkaline Phosphatase 54 Total Protein 8.3 H Albumin 3.5 Urine Color Urine Appearance Urine pH Ur Specific [place] Urine Protein Urine Glucose (UA) Urine Ketones Urine Blood Urine Nitrite Urine Bilirubin Urine Urobilinogen Ur Leukocyte Esterase RPR Titer HIV 1&2 Antibody Screen Negative HIV P24 Antigen Negative 08/21/17 08/21/17 07:55 18:00 WBC RBC Hgb Hct MCV MCH MCHC RDW Plt Count MPV Sodium Potassium Chloride Carbon Dioxide Anion Gap BUN Creatinine Creat Clearance w eGFR Random Glucose Calcium Total Bilirubin AST ALT Alkaline Phosphatase Total Protein Albumin Urine Color Ltyellow Urine Appearance Clear Urine pH 7.0 D Ur Specific [place] 1.013 Urine Protein Negative Urine Glucose (UA) Negative Urine Ketones Negative Urine Blood Negative Urine Nitrite Negative Urine Bilirubin Negative Urine Urobilinogen Negative Ur Leukocyte Esterase Negative RPR Titer Nonreactive HIV 1&2 Antibody Screen HIV P24 Antigen - Treatment Hospital Course: Detox Protocol Followed, Detoxed Safely, Responded well, Discharged Condition Good, Rehab Referral Accepted Patient has Accepted a Rehab Referral to: [facility] - Medication Discharge Medications: Ambulatory Orders NK [No Known Home Medication] 06/03/15 - Diagnosis (1) Nicotine dependence Current Visit: Yes Status: Acute Qualifiers: Nicotine product type: cigarettes Substance use status: in withdrawal Qualified Code(s): F17.213 - Nicotine dependence, cigarettes, with withdrawal (2) Hepatitis C Current Visit: Yes Status: Chronic Qualifiers: Viral hepatitis chronicity: chronic Hepatic coma status: without hepatic coma Qualified Code(s): B18.2 - Chronic viral hepatitis C (3) Dry skin Current Visit: Yes Status: Acute (4) Opioid dependence with withdrawal Current Visit: Yes Status: Acute (5) Dermatitis Current Visit: Yes Status: Chronic - AMA Did Patient Leave Against Medical Advice: No
[2017-08-25 17:02] VITALS: BP 141/89; PULSE 93; TEMP 97.8
== END 2017-08-25 17:31 | disposition other institution (70) | DRG 773 ==
LOC: YASAS 12:33 → Y3N 16:27
PROVIDERS: ADMIT Surgery; ATTEND Surgery
PROC: HZ2ZZZZ Detoxification Services for Substance Abuse Treatment (ICD-10-PCS; principal; 2017-08-20)
DX: F11.23 Opioid dependence with withdrawal (principal); F17.213 Nicotine dependence, cigarettes, with withdrawal; B18.2 Chronic viral hepatitis C; L30.9 Dermatitis, unspecified; L98.8 Other specified disorders of the skin and subcutaneous tissue; G47.00 Insomnia, unspecified
CPT/HCPCS: 36415; 80053; 81003; 85027; 86593; 87389; 93005; 93010

== ENCOUNTER 2017-08-25 17:50 | Inpatient (IN) | payer OTHER ==
[2017-08-25] MEDS ORDERED: MENTHOL/PHENOL 1 EACH UD MM PRN (20:21)
[2017-08-25] MEDS ORDERED: ACETAMINOPHEN 325 MG TABLET (FP) PO PRN (20:21)
[2017-08-25] MEDS ORDERED: NICOTINE POLACRILEX 2 MG GUM BUC PRN (20:21)
[2017-08-25] MEDS ORDERED: MAGNESIUM CITRATE 300 ML BOTTLE PO PRN (20:21)
[2017-08-25] MEDS ORDERED: P-EPHED 60MG/TRIPROLIDI 2.5MG TABLET PO PRN (20:21)
[2017-08-25] MEDS ORDERED: LOPERAMIDE HCL 2 MG CAPSULE PO PRN (20:21)
[2017-08-25] MEDS ORDERED: guaiFENesin/D-METHORPHAN HB 10 ML UNIT-DOSE CUPS PO PRN (20:21)
[2017-08-25] MEDS ORDERED: MAGNESIUM HYDROX 2400MG/30ML ORAL SUSPENSION 30 ML CUP PO PRN (20:21)
--- NOTE | 2017-08-25 20:22 | HP ---
[facility] Rehab Assess/Revision - Admission History Admitted to Rehab from: [facility] [place] Date of Admission to Rehab: 08/25/17 - Vital signs Vital Signs: Vital Signs Period Temp Pulse Resp BP Sys/Walker Pulse Ox Last 24 Hr 99.1 F 96 18 155/81 - Findings Detox History & Physical reviewed: Yes Concur with findings: Yes Inpatient Rehab Admission - Initial Determination Are CD services needed?: Yes Free of communicable disease: Yes Not in need of hospitalization: Yes - Rehab Admission Criteria Previous failed treatment: Yes Poor recovery environment: Yes Comorbidities: Yes Lacks judgement: Yes Patient is meeting Inpatient Rehab admission criteria:: Yes
[2017-08-25] MEDS: THIAMINE HCL 100 MG TABLET (FP) PO SCH (21:07)
[2017-08-26] MEDS: PRENATAL VITAMINS W/ FOLIC ACID TABLET (FP) PO SCH (09:44)
[2017-08-26] MEDS: NICOTINE 14 MG/24 HOURS TOPICAL PATCH TD SCH (09:45)
--- NOTE | 2017-08-26 10:32 | HP ---
Psychiatrist Admission - Data Date of interview: 08/26/17 Admission source: Self-referred Identifying data: This is the second [facility] admission for this 67 years old male, father of 3 daughters, unemployed on social security, homeless Medical History: Significant for hepatitis C, GERD and obesity.Smokes cigarettes 1.25 PPD Psychiatric History: Patient denies history of previous psychiatric treatment Physical/Sexual Abuse/Trauma History: Denies history of emotional, physical or sexual abuse as well as DV relationship. No service Additional Comment: Denies criminal history Vital Signs: Vital Signs - 24 hr 08/25/17 08/26/17 17:55 00:30 Temperature 99.1 F Pulse Rate 96 H Respiratory 18 18 Rate Blood Pressure 155/81 Allergies/Adverse Reactions: Allergies Allergy/AdvReac Type Severity Reaction Status Date / Time No Known Drug Allergies Allergy Verified 08/20/17 16:18 Date of last physical exam: 08/20/17 Concur with the findings of this exam: Yes - Substance Abuse/Tx History Hx Substance Use: Yes Substance Use Type: Heroin (Started using heroin at age 25, consumes 15 bags daily. last used on 08/20/17) Hx Substance Use Treatment: Yes (6 previous inpt detox & one inpt rehab @ [facility]) Mental Status Exam - Mental Status Exam Alert and Oriented to: Time, Place, Person Cognitive Function: Fair Patient Appearance: Well Groomed Mood: Hopeful, Euthymic Affect: Appropriate Patient Behavior: Cooperative Speech Pattern: Clear Voice Loudness: Normal Thought Process: Intact, Goal Oriented Hallucinations: Denies Suicidal Ideation: Denies Homicidal Ideation: Denies Insight/Judgement: Fair Appetite: Poor Muscle strength/Tone: Normal Gait/Station: Normal Psychiatric Findings - Problem List ([place] 1, 2,3) (1) Opioid dependence Current Visit: No Status: Acute (2) Nicotine dependence Current Visit: No Status: Chronic Qualifiers: Nicotine product type: cigarettes Substance use status: in withdrawal Qualified Code(s): F17.213 - Nicotine dependence, cigarettes, with withdrawal (3) Substance-induced sleep disorder Current Visit: Yes Status: Acute (4) GERD (gastroesophageal reflux disease) Current Visit: No Status: Chronic Qualifiers: Esophagitis presence: without esophagitis Qualified Code(s): K21.9 - Gastro -esophageal reflux disease without esophagitis (5) Hepatitis C Current Visit: No Status: Chronic Qualifiers: Viral hepatitis chronicity: chronic Hepatic coma status: without hepatic coma Qualified Code(s): B18.2 - Chronic viral hepatitis C - Initial Treatment Plan Initial Treatment Plan: Monitor progress
[2017-08-26] MEDS: THIAMINE HCL 100 MG TABLET (FP) PO SCH (21:03)
[2017-08-26] MEDS: MAG HYDROX/AL HYDROX/SIMETH 30 ML UNIT-DOSE CUP PO PRN (21:04)
[2017-08-26] MEDS: MELATONIN 5 MG TABLETS PO PRN (21:04)
[2017-08-27] MEDS: NICOTINE 14 MG/24 HOURS TOPICAL PATCH TD SCH (09:56)
[2017-08-27] MEDS: PRENATAL VITAMINS W/ FOLIC ACID TABLET (FP) PO SCH (09:56)
[2017-08-27] MEDS: THIAMINE HCL 100 MG TABLET (FP) PO SCH (21:09)
[2017-08-27] MEDS: MELATONIN 5 MG TABLETS PO PRN (21:09)
[2017-08-27] MEDS: MAG HYDROX/AL HYDROX/SIMETH 30 ML UNIT-DOSE CUP PO PRN (21:09)
[2017-08-28] MEDS: PRENATAL VITAMINS W/ FOLIC ACID TABLET (FP) PO SCH (09:46)
[2017-08-28] MEDS: NICOTINE 14 MG/24 HOURS TOPICAL PATCH TD SCH (09:46)
[2017-08-28] MEDS: THIAMINE HCL 100 MG TABLET (FP) PO SCH (21:19)
[2017-08-28] MEDS: MAG HYDROX/AL HYDROX/SIMETH 30 ML UNIT-DOSE CUP PO PRN (21:19)
[2017-08-28] MEDS: MELATONIN 5 MG TABLETS PO PRN (21:20)
[2017-08-29] MEDS: PRENATAL VITAMINS W/ FOLIC ACID TABLET (FP) PO SCH (09:52)
[2017-08-29] MEDS: NICOTINE 14 MG/24 HOURS TOPICAL PATCH TD SCH (09:53)
[2017-08-29] MEDS: THIAMINE HCL 100 MG TABLET (FP) PO SCH (21:04)
[2017-08-29] MEDS: MAG HYDROX/AL HYDROX/SIMETH 30 ML UNIT-DOSE CUP PO PRN (21:05)
[2017-08-29] MEDS: MELATONIN 5 MG TABLETS PO PRN (21:05)
[2017-08-30] MEDS: PRENATAL VITAMINS W/ FOLIC ACID TABLET (FP) PO SCH (10:05)
[2017-08-30] MEDS: NICOTINE 14 MG/24 HOURS TOPICAL PATCH TD SCH (10:05)
[2017-08-30] MEDS: THIAMINE HCL 100 MG TABLET (FP) PO SCH (21:12)
[2017-08-30] MEDS: MELATONIN 5 MG TABLETS PO PRN (21:12)
[2017-08-30] MEDS: IBUPROFEN 400 MG TABLET (FP) PO PRN (21:12)
[2017-08-30] MEDS: MAG HYDROX/AL HYDROX/SIMETH 30 ML UNIT-DOSE CUP PO PRN (21:12)
[2017-08-31] MEDS: NICOTINE 14 MG/24 HOURS TOPICAL PATCH TD SCH (10:23)
[2017-08-31] MEDS: PRENATAL VITAMINS W/ FOLIC ACID TABLET (FP) PO SCH (10:23)
[2017-08-31] MEDS: IBUPROFEN 400 MG TABLET (FP) PO PRN (21:11)
[2017-08-31] MEDS: THIAMINE HCL 100 MG TABLET (FP) PO SCH (21:11)
[2017-08-31] MEDS: MELATONIN 5 MG TABLETS PO PRN (21:11)
[2017-09-01] MEDS: PRENATAL VITAMINS W/ FOLIC ACID TABLET (FP) PO SCH (10:10)
[2017-09-01] MEDS: NICOTINE 14 MG/24 HOURS TOPICAL PATCH TD SCH (10:11)
[2017-09-01] MEDS: IBUPROFEN 400 MG TABLET (FP) PO PRN (10:11)
[2017-09-01] MEDS: MELATONIN 5 MG TABLETS PO PRN (21:07)
[2017-09-01] MEDS: THIAMINE HCL 100 MG TABLET (FP) PO SCH (21:07)
[2017-09-02] MEDS: NICOTINE 14 MG/24 HOURS TOPICAL PATCH TD SCH (09:57)
[2017-09-02] MEDS: PRENATAL VITAMINS W/ FOLIC ACID TABLET (FP) PO SCH (09:57)
[2017-09-02] MEDS: MELATONIN 5 MG TABLETS PO PRN (21:08)
[2017-09-02] MEDS: THIAMINE HCL 100 MG TABLET (FP) PO SCH (21:08)
[2017-09-02] MEDS: MAG HYDROX/AL HYDROX/SIMETH 30 ML UNIT-DOSE CUP PO PRN (21:09)
[2017-09-03] MEDS: NICOTINE 14 MG/24 HOURS TOPICAL PATCH TD SCH (09:51)
[2017-09-03] MEDS: PRENATAL VITAMINS W/ FOLIC ACID TABLET (FP) PO SCH (09:51)
--- NOTE | 2017-09-03 12:55 | PN ---
BHS Progress Note Note: PATIENT SEEN FOR ELEVATED BLOOD PRESSURE. PATIENT DENIES CP, SOB AND DIZZINESS. Last Vital Signs Temp Pulse Resp BP Pulse Ox 97.9 F 94 H 18 146/92 09/03/17 06:44 09/03/17 10:00 09/03/17 06:44 09/03/17 10:00 OBJ: SKIN: WARM AND DRY CAR: S1S2 RESP: CTA BL EXT: NO EDEMA A/P: HTN WILL ORDER NORVASC 5MG DAILY ENCOURAGE ORAL FLUIDS CONTINUE TO MONITOR CLINICALLY
[2017-09-03] MEDS: THIAMINE HCL 100 MG TABLET (FP) PO SCH (21:15)
[2017-09-03] MEDS: MELATONIN 5 MG TABLETS PO PRN (21:15)
[2017-09-03] MEDS: hydrOXYzine PAMOATE 50 MG CAPSULE (FP) PO PRN (21:16)
[2017-09-04] MEDS: NICOTINE 14 MG/24 HOURS TOPICAL PATCH TD SCH (09:46)
[2017-09-04] MEDS: amLODIPine BESYLATE 5 MG TABLET (FP) PO SCH (09:46)
[2017-09-04] MEDS: PRENATAL VITAMINS W/ FOLIC ACID TABLET (FP) PO SCH (09:47)
[2017-09-04] MEDS: MELATONIN 5 MG TABLETS PO PRN (21:04)
[2017-09-04] MEDS: THIAMINE HCL 100 MG TABLET (FP) PO SCH (21:04)
[2017-09-05] MEDS: PRENATAL VITAMINS W/ FOLIC ACID TABLET (FP) PO SCH (10:00)
[2017-09-05] MEDS: amLODIPine BESYLATE 5 MG TABLET (FP) PO SCH (10:00)
[2017-09-05] MEDS: NICOTINE 14 MG/24 HOURS TOPICAL PATCH TD SCH (10:01)
[2017-09-05] MEDS: hydrOXYzine PAMOATE 50 MG CAPSULE (FP) PO PRN (10:02)
[2017-09-06] MEDS: THIAMINE HCL 100 MG TABLET (FP) PO SCH ×2 (00:19→21:11)
[2017-09-06] MEDS: amLODIPine BESYLATE 5 MG TABLET (FP) PO SCH (09:45)
[2017-09-06] MEDS: NICOTINE 14 MG/24 HOURS TOPICAL PATCH TD SCH (09:45)
[2017-09-06] MEDS: PRENATAL VITAMINS W/ FOLIC ACID TABLET (FP) PO SCH (09:45)
--- NOTE | 2017-09-06 13:55 | PN ---
S Progress Note Note: Patient presents with rash to left buttocks x 3 days. States rash perez and itches. Vital Signs Temperature 98.5 F 09/06/17 06:30 Pulse Rate 88 09/06/17 06:30 Respiratory Rate 18 09/06/17 06:30 Blood Pressure 150/86 09/06/17 06:30 O2 Sat by Pulse Oximetry (%) obj: general: alert and oriented x 3. In NAD. Skin: + shingles rash to left buttock extending to side of hip. Rash dry and reddish-purple. No open areas Ext: Full ROM, ambulatory without device a/p; Herpes Zoster Will order Valtrex 1gm TID x 7 days Gabapentin 100mg tid for pain contact precautions continue to monitor clinically
[2017-09-06] MEDS ORDERED: GABAPENTIN 300 MG CAPSULE (FP) PO SCH (14:00)
[2017-09-06] MEDS: valACYclovir HCL 500 MG TABLET (FP) PO SCH ×2 (15:46→21:11)
[2017-09-06] MEDS: GABAPENTIN 100 MG CAPSULE (FP) PO SCH (21:11)
[2017-09-06] MEDS: MELATONIN 5 MG TABLETS PO PRN (21:11)
[2017-09-06] MEDS: MAG HYDROX/AL HYDROX/SIMETH 30 ML UNIT-DOSE CUP PO PRN (21:11)
[2017-09-07] MEDS: MAG HYDROX/AL HYDROX/SIMETH 30 ML UNIT-DOSE CUP PO PRN (00:26)
[2017-09-07] MEDS: valACYclovir HCL 500 MG TABLET (FP) PO SCH ×3 (07:01→21:23)
[2017-09-07] MEDS: GABAPENTIN 100 MG CAPSULE (FP) PO SCH ×3 (07:01→21:23)
[2017-09-07] MEDS: amLODIPine BESYLATE 5 MG TABLET (FP) PO SCH (09:48)
[2017-09-07] MEDS: NICOTINE 14 MG/24 HOURS TOPICAL PATCH TD SCH (09:48)
[2017-09-07] MEDS: PRENATAL VITAMINS W/ FOLIC ACID TABLET (FP) PO SCH (09:48)
[2017-09-07] MEDS: THIAMINE HCL 100 MG TABLET (FP) PO SCH (21:23)
[2017-09-07] MEDS: MELATONIN 5 MG TABLETS PO PRN (21:23)
[2017-09-08] MEDS: valACYclovir HCL 500 MG TABLET (FP) PO SCH (06:46)
[2017-09-08] MEDS: GABAPENTIN 100 MG CAPSULE (FP) PO SCH (06:46)
[2017-09-08 06:48] VITALS: BP 100/79; PULSE 107; TEMP 98
--- NOTE | 2017-09-08 08:21 | PN ---
Psychiatric Progress Note Vital Signs: Vital Signs Period Temp Pulse Resp BP Sys/Walker Pulse Ox Last 24 Hr 98.0 F 98-107 -18 100-110/79-92 Date of Session: 09/08/17 Chief Complaint:: Discharge visit HPI: Patient addressed Opioid and anxiolytic dependence comorbid with Substance induced mood disorder. Current Medications: Active Medications Generic Name Dose Route Start Last Admin Trade Name Freq PRN Reason Stop Dose Admin Acetaminophen 650 mg 08/25/17 20:21 Tylenol - PO Q4H PRN FEVER Al Hydroxide/Mg Hydroxide 30 ml 08/25/17 20:21 09/07/17 00:26 Mylanta Oral Suspension - PO 30 ml Q6H PRN Administration DYSPEPSIA Amlodipine Besylate 5 mg 09/04/17 10:00 09/07/17 09:48 Norvasc - PO 5 mg DAILY NESTOR Administration Eucalyptus/Menthol/Phenol/Sorbitol 1 each 08/25/17 20:21 Cepastat Lozenge - MM Q4H PRN SORE THROAT Gabapentin 100 mg 09/06/17 15:00 09/08/17 06:46 Neurontin - PO 100 mg TID NESTOR Administration Guaifenesin 10 ml 08/25/17 20:21 Robitussin Dm - PO Q6H PRN COUGH Hydroxyzine Pamoate 50 mg 08/25/17 20:21 09/05/17 10:02 Vistaril - PO 50 mg Q4H PRN Administration AGITATION Ibuprofen 400 mg 08/25/17 20:21 09/01/17 10:11 Motrin - PO 400 mg Q6H PRN Administration Pain Level 4-6 Loperamide HCl 4 mg 08/25/17 20:21 Imodium - PO Q6H PRN DIARRHEA Magnesium Citrate 300 ml 08/25/17 20:21 Citroma - PO Q48H PRN CONSTIPATION Magnesium Hydroxide 30 ml 08/25/17 20:21 Milk Of Magnesia - PO DAILY PRN CONSTIPATION Melatonin 5 mg 08/25/17 22:00 09/07/17 21:23 Melatonin PO 5 mg HS PRN Administration INSOMNIA Nicotine 14 mg 08/26/17 10:00 09/07/17 09:48 Nicoderm Patch - TD 14 mg DAILY NESTOR Administration Nicotine Polacrilex 2 mg 08/25/17 20:21 Nicorette Gum - BUC Q2H PRN NICOTINE REPLACEMENT RX Multivit/Folic Acid/Iron 1 tab 08/26/17 10:00 09/07/17 09:48 Vitamins (Sjr) - PO 1 tab DAILY NESTOR Administration Pseudoephedrine/Triprolidine 1 combo 08/25/17 20:21 Actifed - PO TID PRN NASAL CONGESTION Thiamine HCl 100 mg 08/25/17 22:00 09/07/17 21:23 Vitamin B1 - PO 100 mg HS NESTOR Administration Valacyclovir HCl 1,000 mg 09/06/17 14:00 09/08/17 06:46 Valtrex - PO 09/13/17 13:59 1,000 mg TID NESTOR Administration Current Side Effect: No Lab tests ordered: No Lab tests reviewed: Yes Provider note:: Patient completed this program today.He has met his tretment goals and will continue to addrdess his issues on putpatient basis at [facility] in [facility].Patient reports finding that current medications including Neurontin 100 mg po tid help to cope with anxiety,mood instability.Script for 30 days supply provided. Psychotherapy provided focusing on relapse prevention. Emotional support provided. Patient is stable for discharge today. Mental Status Exam - Mental Status Exam Alert and Oriented to: Time, Place, Person Cognitive Function: Grossly Intact Mood: Hopeful, Euthymic Affect: Mood Congruent Patient Behavior: Cooperative Speech Pattern: Clear Voice Loudness: Normal Thought Process: Goal Oriented Thought Disorder: Not Present Hallucinations: Denies Suicidal Ideation: Denies Homicidal Ideation: Denies Insight/Judgement: Fair Sleep: Fair Appetite: Fair Muscle strength/Tone: Normal Gait/Station: Normal Psychiatric Treatment Plan - Problem List (2) Herpes zoster Qualifiers: Herpes zoster complications: unspecified herpes zoster complication Qualified Code(s): B02.8 - Zoster with other complications
[2017-09-08] MEDS: PRENATAL VITAMINS W/ FOLIC ACID TABLET (FP) PO SCH (10:03)
[2017-09-08] MEDS: amLODIPine BESYLATE 5 MG TABLET (FP) PO SCH (10:03)
[2017-09-08] MEDS: NICOTINE 14 MG/24 HOURS TOPICAL PATCH TD SCH (10:04)
== END 2017-09-08 11:00 | disposition home or self-care (01) | DRG 772 ==
LOC: YASAS 17:50 → Y5N 17:51
PROVIDERS: ADMIT Psychiatry & Neurology Psychiatry; ATTEND Psychiatry & Neurology Psychiatry
PROC: HZ42ZZZ Group Counseling for Substance Abuse Treatment, Cognitive-Behavioral (ICD-10-PCS; principal; 2017-08-25)
DX: F10.20 Alcohol dependence, uncomplicated (principal); F13.20 Sedative, hypnotic or anxiolytic dependence, uncomplicated; F17.213 Nicotine dependence, cigarettes, with withdrawal; F19.282 Other psychoactive substance dependence with psychoactive substance-induced sleep disorder; F19.24 Other psychoactive substance dependence with psychoactive substance-induced mood disorder; B18.2 Chronic viral hepatitis C; I10 Essential (primary) hypertension; K21.9 Gastro-esophageal reflux disease without esophagitis; B02.8 Zoster with other complications; E66.9 Obesity, unspecified

== ENCOUNTER 2018-08-19 08:05 | Inpatient (IN) | payer OTHER ==
[2018-08-19 08:43] VITALS: BMI 30.7
--- NOTE | 2018-08-19 09:38 | HP ---
COWS - Scale Resting Pulse: 0= [place] 80 or Below Sweatin= No chills or Flushing Restless Observation: 0= Sits Still Pupil Size: 0= Normal to Room Light Bone or Joint Aches: 0= None Runny Nose/ Eye Tearin= Runny Nose/Eyes GI Upset > 30mins: 2= Nausea/Diarrhea Tremor Observation: 0= None Yawning Observation: 0= None Anxiety or Irritability: 2=Irritable/Anxious Goose Flesh Skin: 0=Smooth Skin COWS Score: 6 CIWA Score - Admission Criteria [facility]ASAS Guidelines: Admission for Medically Managed Detox: Requires at least one of the followin. CIWA greater than 12 2. Seizures within the past 24 hours 3. Delirium tremens within the past 24 hours 4. Hallucinations within the past 24 hours 5. Acute intervention needed for co occurring medical disorder 6. Acute intervention needed for co occurring psychiatric disorder 7. Severe withdrawal that cannot be handled at a lower level of care (continued vomiting, continued diarrhea, abnormal vital signs) requiring intravenous medication and/or fluids 8. Admission ROS [facility] Allergies/Adverse Reactions: Allergies Allergy/AdvReac Type Severity Reaction Status Date / Time No Known Drug Allergies Allergy Verified 08/19/18 08:37 History of Present Illness: pt here requesting detox from heroin use , reports 2 bags this morning around 3 am , current symptoms as above, average daily use 10 -20 bags denies ivdu , first age of use 30 years ago , denies OD . denies other illicits , reports use of illicit " street " methadone 3 days ago ' to stop the withdrawal " tobacco : 1 ppd SHX : homeless , unemployed , finances habit through illicit activities ( drug sale) planning to relocate to [place] September Search Terms: césar puckett, 1950 Search Date: 08/19/2018 09:40:57 AM The Drug Utilization Report below displays all of the controlled substance prescriptions, if any, that your patient has filled in the last twelve months. The information displayed on this report is compiled from pharmacy submissions to the Department, and accurately reflects the information as submitted by the pharmacies. This report was requested by: Susanna Jackson | Reference #: [id number] There are no results for the search terms that you entered. PMHX : denies PSHX : denies PSych : denies . Exam Limitations: No Limitations - Ebola screening Have you traveled outside of the country in the last 21 days: No (N) Have you had contact with anyone from an Ebola affected area: No Do you have a fever: No - Review of Systems Constitutional: See HPI EENT: reports: Other (glasses upper and lower dentures - did not bring upper dentures) Respiratory: reports: No Symptoms reported Cardiac: reports: No Symptoms Reported GI: reports: See HPI : reports: No Symptoms Reported Musculoskeletal: reports: Other (reprots swelling in feet , standing and walking x several days , homeless) Integumentary: reports: No Symptoms Reported Neuro: reports: No Symptoms reported Endocrine: reports: No Symptoms Reported Psychiatric: reports: Orientated x3 Patient History - Patient Medical History Hx Anemia: No Hx Asthma: No Hx Chronic Obstructive Pulmonary Disease (COPD): No Hx Cancer: No Hx Cardiac Disorders: No Hx Congestive Heart Failure: No Hx Hypertension: No Hx Hypercholesterolemia: No Hx Pacemaker: No HX Cerebrovascular Accident: No Hx Seizures: No Hx Dementia: No Hx Diabetes: No Hx Gastrointestinal Disorders: No Hx Liver Disease: No Hx Genitourinary Disorders: No Hx Sexually Transmitted Disorders: No Hx Renal Disease (ESRD): No Hx Thyroid Disease: No Hx Human Immunodeficiency Virus (HIV): No Hx Hepatitis C: Yes Hx Depression: No Hx Suicide Attempt: No Hx Bipolar Disorder: No Hx Schizophrenia: No - Patient Surgical History Past Surgical History: No Hx Neurologic Surgery: No Hx Cataract Extraction: No Hx Cardiac Surgery: No Hx Lung Surgery: No Hx Breast Surgery: No Hx Breast Biopsy: No Hx Abdominal Surgery: No Hx Appendectomy: No Hx Cholecystectomy: No Hx Genitourinary Surgery: No Hx Section: No Hx Orthopedic Surgery: No Anesthesia Reaction: No - PPD History Date: 08/22/17 Results: Negative - Smoking Cessation Smoking history: Current every day smoker Have you smoked in the past 12 months: Yes Aproximately how many cigarettes per day: 25 Cigars Per Day: 0 Hx Chewing Tobacco Use: No Initiated information on smoking cessation: No - Substances abused Heroin Substance route: Inhalation Frequency: Daily Amount used: 2 bundles/daily Age of first use: 30 Date of last use: 08/19/18 Family Disease History - Family Disease History Family Disease History: Heart Disease: Mother ( FROM CAD), Other: Father ( NO CONTACT) Admission Physical Exam BHS - Vital Signs Vital Signs: Vital Signs - 24 hr 08/19/18 08:21 Temperature 97.1 F L Pulse Rate 62 Respiratory 18 Rate Blood Pressure 128/60 - Physical General Appearance: Yes: Disheveled, Mild Distress HEENTM: Yes: EOMI, Hearing grossly Normal, Normocephalic, Normal Voice, Other ( edentulous) Respiratory: Yes: Chest Non-Tender, No Respiratory Distress, No Accessory Muscle Use Neck: Yes: No masses,lesions,Nodules, Trachea in good position Cardiology: Yes: Regular Rhythm, Regular Rate, S1, S2 Abdominal: Yes: Normal Bowel Sounds, Non Tender, Soft Musculoskeletal: Yes: full range of Motion, Gait Steady Extremities: Yes: Non-Tender Neurological: Yes: Alert, Motor Strength 5/5 Integumentary: Yes: Warm, Pitting Edema (tavo LE) - Diagnostic (1) Opioid dependence with withdrawal Current Visit: Yes Status: Acute (2) Nicotine dependence Current Visit: Yes Status: Chronic Qualifiers: Nicotine product type: cigarettes Breathalyzer - Breathalyzer Breathalyzer: 0 Urine Drug Screen - Test Device Lot number: [id number] Expiration date: 05/12/20 - Control Is test valid?: Yes - Results Drug screen NEGATIVE: No Urine drug screen results: FEN-Fentanyl, MOP-Opiates, MTD-Methadone Inpatient Rehab Admission - Rehab Decision to Admit Inpatient rehab admission?: No
[2018-08-19] MEDS ORDERED: BISMUTH SUBSALICYLATE 262 MG/15 ML BTL PO PRN (09:44)
[2018-08-19] MEDS ORDERED: MAGNESIUM HYDROX 2400MG/30ML ORAL SUSPENSION 30 ML CUP PO PRN (09:44)
[2018-08-19] MEDS ORDERED: MAG HYDROX/AL HYDROX/SIMETH 30 ML UNIT-DOSE CUP PO PRN (09:44)
[2018-08-19] MEDS ORDERED: IBUPROFEN 400 MG TABLET (FP) PO PRN (09:44)
[2018-08-19] MEDS ORDERED: NICOTINE POLACRILEX 2 MG GUM BUC PRN (09:44)
[2018-08-19] MEDS ORDERED: MENTHOL/PHENOL 1 EACH UD MM PRN (09:44)
[2018-08-19] MEDS ORDERED: MAGNESIUM CITRATE 300 ML BOTTLE PO PRN (09:44)
[2018-08-19] MEDS ORDERED: ACETAMINOPHEN 325 MG TABLET (FP) PO PRN ×2 (09:44)
[2018-08-19] MEDS: PRENATAL VITAMINS W/ FOLIC ACID TABLET (FP) PO SCH (11:37)
[2018-08-19] MEDS: hydrOXYzine PAMOATE 25 MG CAPSULE (FP) PO PRN (17:30)
[2018-08-19] MEDS: THIAMINE HCL 100 MG TABLET (FP) PO SCH (22:05)
[2018-08-19] MEDS: MELATONIN 5 MG TABLETS PO PRN (22:06)
[2018-08-19] MEDS ORDERED: METHADONE HCL 10 MG TABLET (FOR DETOX USE ONLY) PO ONE (23:00)
[2018-08-20] MEDS ORDERED: METHADONE HCL 10 MG TABLET (FOR DETOX USE ONLY) PO ONE (10:00)
[2018-08-20] MEDS: PRENATAL VITAMINS W/ FOLIC ACID TABLET (FP) PO SCH (10:32)
--- NOTE | 2018-08-20 10:35 | PN ---
BHS COWS - Scale Resting Pulse: 0= [place] 80 or Below Sweatin= Chills/Flushing Restless Observation: 1= Difficult to Sit Still Pupil Size: 0= Normal to Room Light Bone or Joint Aches: 1= Mild Discomfort Runny Nose/ Eye Tearin= None GI Upset > 30mins: 0= None Tremor Observation of Outstretched Hands: 2= Slight Tremor Visible Yawning Observation: 1= 1-2x During Session Anxiety or Irritability: 2=Irritable/Anxious Goose Flesh Skin: 0=Smooth Skin COWS Score: 8 BHS Progress Note (SOAP) Subjective: c/o sweats, irritability, and shakes. Objective: 08/20/18 10:34 Vital Signs 08/20/18 08/20/18 08/20/18 03:30 06:09 09:28 Temperature 97.5 F L 96.3 F L Pulse Rate 59 L 71 Respiratory 18 18 18 Rate Blood Pressure 175/77 H 188/89 H Labs pending. Assessment: 08/20/18 10:35 AOX3, in no respiratory distress, full rom, ambulating in the unit. Withdrawal symptoms. Elevated BP, pt denies any chest pain, n/v, or sob at this time. 08/20/18 10:38 Plan: Continue detox clonidine 0.1mg po once for bp of 188/89, HR 71.
[2018-08-20] MEDS ORDERED: cloNIDine HCL 0.1 MG TABLET PO ONE (11:00)
[2018-08-20 11:05] LABS: ALBUMIN 3.6 g/dl (3.4-5.0); BILIRUBIN,TOTAL 0.4 mg/dL (0.2-1); BLOOD UREA NITROGEN 17.6 mg/dL (7-18); CALCIUM 8.2 mg/dL (8.5-10.1); POTASSIUM 4.4 mmol/L (3.5-5.1); TOT PROT 8.4 g/dl (6.4-8.2)
[2018-08-20 11:58] LABS: HEMATOCRIT 41.7 % (35.4-49); HEMOGLOBIN 13.9 GM/dL (11.7-16.9); MCH 28.2 pg (25.7-33.7); MCHC 33.2 g/dl (32.0-35.9); MEAN CELL VOLUME 84.9 fl (80-96); MEAN PLT VOLUME 7.8 fl (7.5-11.1); RBC 4.92 M/mm3 (4.00-5.60); RDW 15.5 % (11.9-15.9); WHITE BLOOD COUNT 8.9 K/mm3 (4.0-10.0)
[2018-08-20 19:31] LABS: PLATELET COUNT 247 K/MM3 (134-434)
[2018-08-20] MEDS: THIAMINE HCL 100 MG TABLET (FP) PO SCH (21:56)
[2018-08-20] MEDS: hydrOXYzine PAMOATE 25 MG CAPSULE (FP) PO PRN (21:56)
[2018-08-20] MEDS: MELATONIN 5 MG TABLETS PO PRN (21:56)
[2018-08-21] MEDS ORDERED: METHADONE HCL 10 MG TABLET (FOR DETOX USE ONLY) PO ONE (10:00)
[2018-08-21] MEDS: PRENATAL VITAMINS W/ FOLIC ACID TABLET (FP) PO SCH (10:52)
--- NOTE | 2018-08-21 11:54 | PN ---
S CIWA - CIWA Score Nausea/Vomitin-No Nausea/No Vomiting Muscle Tremors: 2 Anxiety: 1-Mildly Anxious Agitation: 2 Paroxysmal Sweats: No Perspiration Orientation: 0-Oriented Tacttile Disturbances: 0-None Auditory Disturbances: 0-None Visual Disturbances: 0-None Headache: 0-None Present CIWA-Ar Total Score: 5 BHS Progress Note (SOAP) Subjective: feeling better denies history of hypertension discuss alcohol misuse related bp elevation Objective: 08/21/18 11:54 Vital Signs Temperature 97.0 F L 08/21/18 09:13 Pulse Rate 69 08/21/18 09:13 Respiratory Rate 18 08/21/18 09:13 Blood Pressure 149/79 08/21/18 09:13 O2 Sat by Pulse Oximetry (%) Laboratory Last Values WBC 8.9 K/mm3 (4.0-10.0) 08/20/18 08:00 RBC 4.92 M/mm3 (4.00-5.60) 08/20/18 08:00 Hgb 13.9 GM/dL (11.7-16.9) 08/20/18 08:00 Hct 41.7 % (35.4-49) 08/20/18 08:00 MCV 84.9 fl (80-96) 08/20/18 08:00 MCH 28.2 pg (25.7-33.7) 08/20/18 08:00 MCHC 33.2 g/dl (32.0-35.9) 08/20/18 08:00 RDW 15.5 % (11.9-15.9) 08/20/18 08:00 Plt Count 247 K/MM3 (134-434) 08/20/18 08:00 MPV 7.8 fl (7.5-11.1) 08/20/18 08:00 Sodium 141 mmol/L (136-145) 08/20/18 08:00 Potassium 4.4 mmol/L (3.5-5.1) 08/20/18 08:00 Chloride 106 mmol/L (98-107) 08/20/18 08:00 Carbon Dioxide 28 mmol/L (21-32) 08/20/18 08:00 Anion Gap 7 MMOL/L (8-16) L 08/20/18 08:00 BUN 17.6 mg/dL (7-18) 08/20/18 08:00 Creatinine 1.0 mg/dL (0.55-1.3) 08/20/18 08:00 Est GFR (CKD-EPI)AfAm 89.23 08/20/18 08:00 Est GFR (CKD-EPI)NonAf 76.99 08/20/18 08:00 Random Glucose 83 mg/dL (74-106) 08/20/18 08:00 Calcium 8.2 mg/dL (8.5-10.1) L 08/20/18 08:00 Total Bilirubin 0.4 mg/dL (0.2-1) 08/20/18 08:00 AST 35 U/L (15-37) 08/20/18 08:00 ALT 41 U/L (13-61) 08/20/18 08:00 Alkaline Phosphatase 60 U/L (45-117) 08/20/18 08:00 Total Protein 8.4 g/dl (6.4-8.2) H 08/20/18 08:00 Albumin 3.6 g/dl (3.4-5.0) 08/20/18 08:00 RPR Titer Nonreactive (NONREACTIVE) 08/20/18 08:00 lab noted Assessment: 08/21/18 11:54 alcohol withdrawal sx Plan: continue detox
[2018-08-21] MEDS: amLODIPine BESYLATE 5 MG TABLET (FP) PO SCH ×2 (13:03→21:32)
[2018-08-21] MEDS: hydrOXYzine PAMOATE 25 MG CAPSULE (FP) PO PRN ×2 (18:54→21:32)
[2018-08-21] MEDS: THIAMINE HCL 100 MG TABLET (FP) PO SCH (21:32)
[2018-08-21] MEDS: MELATONIN 5 MG TABLETS PO PRN (21:33)
[2018-08-22] MEDS ORDERED: METHADONE HCL 10 MG TABLET (FOR DETOX USE ONLY) PO ONE (10:00)
[2018-08-22] MEDS: amLODIPine BESYLATE 5 MG TABLET (FP) PO SCH ×2 (10:13→22:12)
[2018-08-22] MEDS: RANITIDINE HCL 150 MG TABLET (FP) PO SCH ×2 (10:13→22:12)
[2018-08-22] MEDS: PRENATAL VITAMINS W/ FOLIC ACID TABLET (FP) PO SCH (10:13)
--- NOTE | 2018-08-22 12:18 | PN ---
S CIWA - CIWA Score Nausea/Vomitin-No Nausea/No Vomiting Muscle Tremors: 2 Anxiety: 1-Mildly Anxious Agitation: 1-Slight > Activity Paroxysmal Sweats: No Perspiration Orientation: 0-Oriented Tacttile Disturbances: 0-None Auditory Disturbances: 0-None Visual Disturbances: 0-None Headache: 0-None Present CIWA-Ar Total Score: 4 BHS Progress Note (SOAP) Subjective: feeling better long history of GERD discontinue motrin begin zantac Objective: 08/22/18 12:24 Vital Signs Temperature 96.8 F L 08/22/18 09:04 Pulse Rate 64 08/22/18 09:04 Respiratory Rate 18 08/22/18 09:04 Blood Pressure 126/77 08/22/18 09:04 O2 Sat by Pulse Oximetry (%) Laboratory Last Values WBC 8.9 K/mm3 (4.0-10.0) 08/20/18 08:00 RBC 4.92 M/mm3 (4.00-5.60) 08/20/18 08:00 Hgb 13.9 GM/dL (11.7-16.9) 08/20/18 08:00 Hct 41.7 % (35.4-49) 08/20/18 08:00 MCV 84.9 fl (80-96) 08/20/18 08:00 MCH 28.2 pg (25.7-33.7) 08/20/18 08:00 MCHC 33.2 g/dl (32.0-35.9) 08/20/18 08:00 RDW 15.5 % (11.9-15.9) 08/20/18 08:00 Plt Count 247 K/MM3 (134-434) 08/20/18 08:00 MPV 7.8 fl (7.5-11.1) 08/20/18 08:00 Sodium 141 mmol/L (136-145) 08/20/18 08:00 Potassium 4.4 mmol/L (3.5-5.1) 08/20/18 08:00 Chloride 106 mmol/L (98-107) 08/20/18 08:00 Carbon Dioxide 28 mmol/L (21-32) 08/20/18 08:00 Anion Gap 7 MMOL/L (8-16) L 08/20/18 08:00 BUN 17.6 mg/dL (7-18) 08/20/18 08:00 Creatinine 1.0 mg/dL (0.55-1.3) 08/20/18 08:00 Est GFR (CKD-EPI)AfAm 89.23 08/20/18 08:00 Est GFR (CKD-EPI)NonAf 76.99 08/20/18 08:00 Random Glucose 83 mg/dL (74-106) 08/20/18 08:00 Calcium 8.2 mg/dL (8.5-10.1) L 08/20/18 08:00 Total Bilirubin 0.4 mg/dL (0.2-1) 08/20/18 08:00 AST 35 U/L (15-37) 08/20/18 08:00 ALT 41 U/L (13-61) 08/20/18 08:00 Alkaline Phosphatase 60 U/L (45-117) 08/20/18 08:00 Total Protein 8.4 g/dl (6.4-8.2) H 08/20/18 08:00 Albumin 3.6 g/dl (3.4-5.0) 08/20/18 08:00 RPR Titer Nonreactive (NONREACTIVE) 08/20/18 08:00 lab noted Assessment: 08/22/18 12:24 alcohol withdrawal sx Plan: continue detox
[2018-08-22] MEDS: THIAMINE HCL 100 MG TABLET (FP) PO SCH (22:11)
[2018-08-22] MEDS: MELATONIN 5 MG TABLETS PO PRN (22:12)
[2018-08-23] MEDS ORDERED: METHADONE HCL 5 MG TABLET (FOR DETOX USE ONLY) PO ONE (06:00)
[2018-08-23 06:02] VITALS: BP 151/84; PULSE 74; TEMP 98.9
--- NOTE | 2018-08-23 17:03 | DS ---
[facility] Detox Discharge Summary Admission Date: 08/19/18 Discharge Date: 08/23/18 - History Present History: Opioid Dependence Additional Comments: PATIENT REFERRED TO [facility] ([place], [place]) FOR AFTERCARE. PATIENT WAS DISCHARGED FORM DETOX UNIT IN STABLE MEDICAL CONDITION. Pertinent Past History: Nicotine Dependence, Hep C. - Physical Exam Results Vital Signs: Vital Signs Temperature 98.9 F 08/23/18 06:02 Pulse Rate 74 08/23/18 06:02 Respiratory Rate 18 08/23/18 06:30 Blood Pressure 151/84 08/23/18 06:02 O2 Sat by Pulse Oximetry (%) Pertinent Admission Physical Exam Findings: WITHDRAWAL SYMPTOMS. Laboratory Tests 08/20/18 08/20/18 08/20/18 08:00 08:00 08:00 WBC 8.9 RBC 4.92 Hgb 13.9 Hct 41.7 MCV 84.9 MCH 28.2 MCHC 33.2 RDW 15.5 Plt Count 247 MPV 7.8 Sodium 141 Potassium 4.4 Chloride 106 Carbon Dioxide 28 Anion Gap 7 L BUN 17.6 Creatinine 1.0 Est GFR (CKD-EPI)AfAm 89.23 Est GFR (CKD-EPI)NonAf 76.99 Random Glucose 83 Calcium 8.2 L Total Bilirubin 0.4 AST 35 ALT 41 Alkaline Phosphatase 60 Total Protein 8.4 H Albumin 3.6 RPR Titer Nonreactive LABS NOTED. - Treatment Hospital Course: Detox Protocol Followed, Detoxed Safely, Responded well, Discharged Condition Good Patient has Accepted a Rehab Referral to: PATIENT REFERRED TO [facility] ([place], [place]) FOR AFTERCARE - Medication Discharge Medications: Ambulatory Orders Amlodipine Besylate [Norvasc -] 5 mg PO BID 08/21/18 Amlodipine Besylate [Norvasc -] 5 mg PO BID #60 tablet 08/22/18 - Diagnosis (1) Opioid dependence with withdrawal Status: Acute (2) Nicotine dependence Status: Chronic Qualifiers: Nicotine product type: cigarettes Substance use status: uncomplicated Qualified Code(s): F17.210 - Nicotine dependence, cigarettes, uncomplicated - AMA Did Patient Leave Against Medical Advice: No
== END 2018-08-23 08:30 | disposition home or self-care (01) | DRG 897 ==
LOC: YASAS 08:05 → Y3N 10:10
PROVIDERS: ADMIT Surgery; ATTEND Surgery
PROC: HZ2ZZZZ Detoxification Services for Substance Abuse Treatment (ICD-10-PCS; principal; 2018-08-19)
DX: F11.23 Opioid dependence with withdrawal (principal); F10.230 Alcohol dependence with withdrawal, uncomplicated; F17.210 Nicotine dependence, cigarettes, uncomplicated; B18.2 Chronic viral hepatitis C; R03.0 Elevated blood-pressure reading, without diagnosis of hypertension
CPT/HCPCS: 36415; 80053; 85027; 86593; J0735